=== PATIENT | male | born 1945 | race Caucasian/White ===

== ENCOUNTER 2017-03-19 11:50 | Inpatient (IN) | payer MEDICARE ==
[2017-03-19] MEDS ORDERED: LISINOPRIL 5 MG TAB PO SCH (13:30)
--- NOTE | 2017-03-19 13:44 | XR ---
EXAMINATION TYPE: XR chest 2V DATE OF EXAM: 03/19/2017 COMPARISON: Prior chest x-ray 06/20/2016 HISTORY: Defibrillator discharge TECHNIQUE: Frontal and lateral views of the chest are obtained. FINDINGS: There is no focal air space opacity, pleural effusion, or pneumothorax seen. Defibrillator is present in the left pectoral region, lead is stable within the right ventricle. Coronary stent is present, there are coronary artery calcifications. Prominent lung volumes suggests underlying COPD. The cardiac silhouette size is within normal limits. There may be a spinal curvature. The osseous s tructures are intact. IMPRESSION: No acute cardiopulmonary process.
[2017-03-19 13:47] LABS: Basophils # (A) 0.1 k/uL (0-0.2); Basophils % (A) 1 %; CH 30.8; CHCM 34.9; Eosinophils # (A) 0.2 k/uL (0-0.7); Eosinophils % (A) 3 %; HCT 40.2 % (39.0-53.0); HDW 2.99; Luc # (Auto) 0.08; Luc % (Auto) 1; Lymphocytes # (A) 1.2 k/uL (1.0-4.8); Lymphocytes % (A) 19 %; MCH 31.1 pg (25.0-35.0); MCHC 34.9 g/dL (31.0-37.0); MCV 89.1 fL (80.0-100.0); Mean Platelet Volume 7.3; Monocytes # (A) 0.3 k/uL (0-1.0); Monocytes % (A) 5 %; Neutrophils # (A) 4.4 k/uL (1.3-7.7); Neutrophils % (A) 71 %; RBC 4.51 m/uL (4.30-5.90); RDW 14.9 % (11.5-15.5); WBC 6.1 k/uL (3.8-10.6); WBC (Perox) 6.24
[2017-03-19 13:55] LABS: Calcium 9.7 mg/dL (8.4-10.2); Magnesium 1.4 mg/dL (1.6-2.3); Potassium 4.1 mmol/L (3.5-5.1); Total Bilirubin 0.9 mg/dL (0.2-1.3); Total Protein 6.7 g/dL (6.3-8.2)
--- NOTE | 2017-03-19 14:14 | CONS ---
CONSULTATION Mr. Li is a 71-year-old gentleman who is seen for evaluation of cardiac dysrhythmias and more sustained ventricular tachycardia. Patient gives a history that yesterday morning he was sitting in a chair and he passed out and subsequently possibly he might have got a shock. He did not feel good for about half an hour. He was a bit nauseated and shortness of breath. He did not recognize that he did get a shock. Patient's AICD was interrogated and patient had an episode of sustained monomorphic ventricular tachycardia and he received the shock. In view of the episode of ventricular tachycardia, patient is admitted to the hospital for further evaluation. This patient has a known history of ischemic cardiomyopathy, with a prior history of inferolateral myocardial infarction and stent to the RCA. Patient had the last cardiac catheterization done in 2014 and had a stent to the RCA done. Patient's ejection fraction remains in the range of 35%. His last stress test was in June of 2025 which did not show any evidence of ischemia. Ejection fraction was at the rate of 35%. Patient had been doing well since the AICD placement. This is the first time he felt the shock and he remains in functional class 3. Denies any shortness of breath or chest pain with routine activities. PAST MEDICAL HISTORY: Includes a history of a prior myocardial infarction, multiple times stent to the RCA, history of COPD and history of low red cell count due to the enlarged spleen. PATIENT'S MEDICATIONS: Include Aldactone 25 mg daily, Lasix 40 mg daily, Lipitor 40 mg daily, metoprolol succinate 50 mg 1/2 tablet b.i.d., Plavix 75 mg daily, Spiriva, Symbicort, Vasotec 5 mg twice a day, and vitamin D. PHYSICAL EXAMINATION: At present reveals a 71-year-old gentleman who does not appear to be in any acute distress. Patient's blood pressure is 142/70 mmHg. HEENT examination is negative. Neck is supple. There is no increase in jugular venous pressure. Both the carotid pulses are felt. There is no bruit. Chest is symmetrical. Heart, the PMI is not felt. First and second heart sounds are normal. There is no evidence of any murmur. Lungs are clinically clear to auscultation and percussion. Abdomen is soft. Liver and spleen are not enlarged. Bowel sounds are heard. Extremities, peripheral pulses are 2+. Patient's internal evaluation of the AICD reveals evidence of monomorphic ventricular tachycardia. EKG shows evidence of old inferior wall myocardial infarction. Patient's QT interval is 428 ms. FINAL IMPRESSION: This patient has an episode of monomorphic ventricular tachycardia which was terminated by DC shock. This was shocked with 21 joules Patient has a known history of ischemic cardiomyopathy, with prior history of inferior wall myocardial infarction. RECOMMENDATIONS: Patient is admitted to the hospital. We will start the patient on sotalol 80 mg b.i.d., consultation will be obtained with Dr. Farmer. I will decrease the dose of metoprolol to 50 mg daily and we will monitor the patient's QT interval for the next 48 hours. Patient will be subsequently evaluated with a stress test as an outpatient. ANGELIA / KHADIJAHN: [id number] /
[2017-03-19] MEDS: FUROSEMIDE 40 MG TAB PO SCH (15:13)
[2017-03-19] MEDS: METOPROLOL SUCCINATE (ER) 50 MG TAB.ER.24H PO SCH ×2 (15:14→20:02)
[2017-03-19] MEDS: SOTALOL 80 MG TAB PO SCH ×3 (15:16→23:18)
[2017-03-19] MEDS: SPIRONOLACTONE 25 MG TAB PO SCH (15:16)
[2017-03-19] MEDS ORDERED: HYDROcodone/APAP 5-325MG 1 EACH TAB PO PRN (19:14)
[2017-03-19] MEDS ORDERED: NITROGLYCERIN SL TABS 0.4 MG TAB SUBLINGUAL PRN (19:14)
[2017-03-19] MEDS ORDERED: ALBUTEROL NEBULIZED 2.5 MG/3 ML INHALATION PRN (19:14)
[2017-03-19] MEDS ORDERED: FLUTICASONE 50MCG/SPRAY NASAL 16GM EA NOSTRIL PRN (19:14)
[2017-03-19] MEDS ORDERED: IPRATROPIUM-ALBUTEROL 3 ML NEB INHALATION PRN (19:35)
[2017-03-19] MEDS: SYMBICORT 160-4.5 MCG INHALER INHALATION SCH (19:38)
[2017-03-19] MEDS: IPRATROPIUM-ALBUTEROL 3 ML NEB INHALATION SCH (19:38)
[2017-03-19] MEDS: MAGNESIUM SULFATE-D5W PMX 1 GM in DEXTROSE/WATER 1 100ML.BAG IVPB SCH ×3 (19:46→21:43)
[2017-03-19] MEDS: ATORVASTATIN 40 MG TAB PO SCH (20:00)
[2017-03-19] MEDS: LISINOPRIL 10 MG TAB PO SCH (20:01)
[2017-03-19] MEDS: CLOPIDOGREL 75 MG TAB PO SCH (20:01)
[2017-03-19 23:50] LABS: Calcium 10.1 mg/dL (8.4-10.2); Potassium 4.6 mmol/L (3.5-5.1)
[2017-03-20] MEDS: PANTOPRAZOLE 40 MG TABLET PO SCH (06:39)
[2017-03-20] MEDS: SYMBICORT 160-4.5 MCG INHALER INHALATION SCH ×2 (08:00→19:51)
[2017-03-20] MEDS ORDERED: IPRATROPIUM 0.5 MG/2.5 ML NEBU INHALATION SCH (08:00)
[2017-03-20] MEDS: IPRATROPIUM-ALBUTEROL 3 ML NEB INHALATION SCH ×4 (08:01→19:53)
[2017-03-20] MEDS: SPIRONOLACTONE 25 MG TAB PO SCH (08:58)
[2017-03-20] MEDS: LISINOPRIL 10 MG TAB PO SCH ×2 (08:58→20:31)
[2017-03-20] MEDS: METOPROLOL SUCCINATE (ER) 50 MG TAB.ER.24H PO SCH ×2 (08:58→20:31)
[2017-03-20] MEDS: SOTALOL 80 MG TAB PO SCH ×2 (08:58→20:32)
[2017-03-20] MEDS: FUROSEMIDE 40 MG TAB PO SCH (08:58)
[2017-03-20] MEDS: ASPIRIN 81 MG PO SCH (08:58)
--- NOTE | 2017-03-20 13:58 | P.PN ---
Subjective Progress Note Date: 03/20/17 Principal diagnosis: Monomorphic ventricular tachycardia This is a 71-year-old gentleman with history of prior myocardial infarction, multiple stent placements to the RCA, COPD, ischemic cardio myopathy with prior AICD implantation. [facility]. He gave a history that the morning prior he was sitting in a chair and passed out, he was unsure whether or not he had received a shock from his AICD. The AICD was interrogated in the office which revealed that the patient had an episode of sustained monomorphic ventricular tachycardia for which she received an AICD shock. In view of that patient was admitted to the hospital and was initiated on sotalol. We also requested a consultation with Dr. Farmer. Patient was seen and examined this morning, no ectopy noted on the monitor. Blood pressure 102/50 with a heart rate in the 50s. 96% on room air. QTC on initial EKG when patient arrived was 447, subsequent EKG this morning 490. Magnesium on admission was 1.4, it is 2.4 this morning, potassium 4.6. Objective - Vital Signs Vital signs: Vital Signs Temp 96.9 F L 03/20/17 08:00 Pulse 48 L 03/20/17 11:48 Resp 19 03/20/17 04:00 BP 103/51 03/20/17 08:00 Pulse Ox 96 03/20/17 08:00 Intake & Output 03/19/17 03/20/17 03/20/17 18:59 06:59 18:59 Intake Total 220 300 180 Output Total 300 1250 Balance -80 -950 180 Weight 73.3 kg 72.6 kg Intake: Intake, IV Titration 300 Amount Magnesium Sulfate-D5w Pmx 300 1 gm In Dextrose/Water 1 100ml.bag @ 100 mls/hr IVPB Q1H [facility] Rx#: [id number] Oral 220 180 Output: Urine 300 1250 Other: Voiding Method Toilet # Voids 250 - Exam PHYSICAL EXAMINATION: HEENT: Head is atraumatic, normocephalic. Pupils equal, round. Neck is supple. There is no elevated jugular venous pressure. HEART EXAMINATION: Heart S1, S2 normal. No murmur or gallop heard. CHEST EXAMINATION: Lungs are clear to auscultation and precussion. No chest wall tenderness is noted on palpation or with deep breathing. ABDOMEN: Soft, nontender. Bowel sounds are heard. No organomegaly noted. EXTREMITIES: 2+ peripheral pulses with no evidence of peripheral edema and no calf tenderness noted. NEUROLOGIC patient is awake, alert and oriented -3. . - Labs CBC & Chem 7: 03/19/17 13:30 03/19/17 22:59 Labs: Abnormal Lab Results - Last 24 Hours (Table) 03/19/17 03/19/17 03/20/17 Range/Units 13:30 22:59 05:49 Carbon Dioxide 31 H (22-30) mmol/L BUN 24 H 25 H (9-20) mg/dL Creatinine 1.59 H 1.50 H (0.66-1.25) mg/dL Glucose 147 H (74-99) mg/dL Magnesium 1.4 L 2.4 H (1.6-2.3) mg/dL Assessment and Plan Plan: Assessment and plan #1 monomorphic sustained ventricular tachycardia status post AICD discharge currently on sotalol #2 COPD #3 coronary artery disease with multiple stents placed in the RCA #4 GERD #5 hypertension #6 hyperlipidemia #7 acute on chronic renal insufficiency Plan We will continue sotalol 80 mg one tablet by mouth twice a day, continue to monitor QT. Patient will also be seen in consultation by Dr. Farmer. DNP note has been reviewed, I agree with a documented findings and plan of care. Patient was seen and examined.
--- NOTE | 2017-03-20 14:58 | CDI ---
In responding to this query, please exercise your independent professional judgment. The [facility] Coding Staff and Clinical Documentation Specialists appreciate your assistance in clarifying documentation, maintaining compliance with coding guidelines, accurately documenting patients condition and capturing severity of illness. The fact that a question is asked does not imply that any particular answer is desired or expected. Communication forms are a method of clarifying documentation and are not made part of the Legal Health Record. Thank you in advance for your clarification. Last Revision, March 2015 [address] [place] [address] Documentation Clarification Form Date: 03/20/2017 2:47:00 PM From: Supriya Cheney CCS, CCDS Admit Date: 03/19/2017 12:55:00 PM Patient Name: Pj Li Visit Number: [id number] Discharge Date: Dr. Augustus Higuera: 71 yo male, presented with monomorphic ventricular tachycardia & AICD shock. History: [place], Multiple cardiac stents, COPD, Splenomegaly. Clinical Indicators: LAB: BUN 24, Cr 1.59, GFR 43 Treatment: po Lasix, Neb INH, Nitro sl, IV MagSulfate Consult: EP Cardiology In order to capture the severity of condition, please clarify if the condition signifies: Acute renal failure Please specify (if known): Cortical, Medullary, or Tubular Necrosis? Acute kidney injury Acute on chronic renal failure Chronic renal failure, please stage Chronic kidney disease (CKD) and please stage o Stage 1 GFR >90 o Stage 2 GFR 60-89 o Stage 3 GFR 30-59 o Stage 4 GFR 15-29 o Stage 5 GFR <15 o ESRD Unable to determine Other, specify Please document in your progress notes and discharge summary in order to capture severity of illness and risk of mortality. Include clinical findings that support your diagnosis. FYI: Press F11 to launch patient chart. BEYT
--- NOTE | 2017-03-20 18:28 | PN ---
PROGRESS NOTE CHIEF COMPLAINT: Re-evaluation. HISTORY OF PRESENT ILLNESS: This is a 71-year-old gentleman who was admitted to the hospital yesterday. The patient was seen yesterday for initial evaluation. The patient is seen again today. He is doing relatively well. The patient was admitted with syncope. His AICD had shown ventricular tachycardia. The patient feels fine and has not had any further firing of his AICD. Telemetry of rhythm is stable. REVIEW OF SYSTEMS: NEURO: Denies any headaches, dizziness. PSYCH: No anxiety. CARDIAC: No chest pain, palpitation. RESPIRATORY: No shortness of breath. He has some chronic cough. GI: No nausea, vomiting, abdominal pain, diarrhea. : No symptoms of dysuria, hematuria, urgency, frequency. EXTREMITIES: No pain, edema. CONSTITUTIONAL: No fever, chills. PHYSICAL EXAMINATION: Pleasant gentleman in no distress. Vital signs revealed temperature 96.9, pulse 61, respirations 19, blood pressure 103/51. HEENT: Normocephalic. NECK: No JVD. CHEST: Clear to auscultation with generalized decreased air flow. No wheezing or rhonchi appreciated. CARDIAC: Distant heart sounds S1, S2 with no gallops. Systolic murmur 2/6, left sternal border. ABDOMEN: Soft. Bowel sounds present. EXTREMITIES: No edema. Good pulses in both upper and lower extremities. Neurologically awake, alert, oriented with well-coordinated movements. LABORATORY ASSESSMENT: Electrolytes of sodium 140, potassium 4.6, chloride 100, CO2 content 31. BUN 25, creatinine 1.5. Magnesium 2.4. Calcium is 10.1. ASSESSMENT: 1. Cardiac syncope. 2. Sustained ventricular tachycardia. 3. Fired AICD. 4. ischemic cardiomyopathy. 5. Hypertension. 6. Hypomagnesemia, resolved. 7. Chronic kidney disease, stage III. PLAN: Will continue present medical regimen. Patient's condition discussed with the patient. The patient is scheduled to be seen by EP physician. If patient remains stable, he might be discharged home tomorrow. Prognosis guarded. MMODL / IJN: [id number] /
--- NOTE | 2017-03-20 18:55 | HP ---
HISTORY AND PHYSICAL CHIEF COMPLAINT: Passing-out episode. HISTORY OF PRESENT ILLNESS: This is a 71-year-old gentleman who was admitted directly to the hospital by the business information manager. The day prior to admission, the patient in the morning following breakfast while sitting in the chair fell asleep. He says he suddenly woke up startled. His was sitting around and asked him if he just was startled or was there something wrong, and he said he guessed he was startled as he woke up. The patient had felt somewhat nauseous and dizzy. He did go to the bathroom, thinking he was going to get sick to his stomach but did not. He did basically rest in the morning, and by noon he was feeling much better. He did have lunch without any problems. The patient on the day of admission was called by Cardiology because they received notification that his AICD had fired. The patient was brought into their office and his AICD device was interrogated. The patient was noted to have been in ventricular tachycardia, sustained. In view of this, he was admitted to the hospital. The patient has been started on sotalol. The patient was admitted to my service, as I am the primary care physician. The patient does have a history of dilated ischemic cardiomyopathy and has had AICD since April 2015. The patient has had a previous episode of syncope of similar nature. Also back in 1996 and 2005 he had myocardial infarctions. He had a stent placed back in 2005 and again in April. As mentioned above, he does have dilated ischemic cardiomyopathy. His ejection fraction is about 35%. He does have a long-standing history of hypertension, COPD, and 100% disability from the [facility]. The patient has a history of degenerative arthritis. Otherwise no history of any liver disease, kidney disease, thyroid condition, ulcers, TB, hepatitis. No history of any rheumatic fever. Does have history of myocardial infarction. No history of CVA. PAST SURGICAL HISTORY: 1. Hydrocele repair x2. 2. Previous cataract surgery. 3. AICD placement. PERSONAL HISTORY: Patient is an ex-smoker; quit in 1996. He used to smoke a pack and a half a day for over 25 years. Alcohol none. VACCINATIONS: He did get an annual flu vaccine recently. Also he had a previous Pneumovax in 2004 and 2009. He has also had Prevnar 13. ALLERGIES: PENICILLIN, AMOXICILLIN, which caused him a rash. MEDICATIONS: Medications include: 1. Aspirin 81 mg daily. 2. Lipitor 40 mg daily. 3. Symbicort 160/4.5 two puffs b.i.d. 4. Folic acid 1 mg daily. 5. Lasix 40 mg daily. 6. Aldactone 25 mg daily. 7. Metoprolol XL 50 mg b.i.d. 8. Prilosec 20 mg daily. 9. Plavix 75 mg daily. 10.Fish oil daily. 11.Lisinopril 10 mg b.i.d. 12.He also uses updrafts and an albuterol inhaler. SOCIAL HISTORY: Patient is a retired driver. He does exercise by walking 1-1/2 mile daily. FAMILY MEDICAL HISTORY: Father at the age of 70 with myocardial infarction. Mother at the age of 60 with carcinoma of the breast. The patient has a sister, 67, with history of carcinoma of the colon, doing okay. He has a sister, 64, doing doing okay. A sister, 58, doing okay. He has 2 sons, one 40 and one 37, both in adequate health. He has a daughter, 42, in good health. REVIEW OF SYSTEMS: NEURO: Denies any headaches. An episode of dizziness. No double vision or blurred vision. Syncopal episode. PSYCH: No anxiety, depression. CARDIAC: No chest pain, angina, palpitation. RESPIRATORY: shortness of breath and a chronic cough. No hemoptysis. GI: No nausea, vomiting, abdominal pain, heartburn, diarrhea, constipation, hematochezia, melena. : No symptoms of dysuria, hematuria, urgency, frequency. EXTREMITIES: Denies pain, edema. CONSTITUTIONAL: No fever, chills. HEMATOLOGICAL: No anemia or bleeding disorder. He did have a previous episode of anemia of unknown etiology, and it resolved. He also had mild splenomegaly at that time. SKIN: No rashes. MUSCULOSKELETAL: Arthritic symptoms are tolerable. ENT: Adequate smell test, hearing. EYES: Adequate vision. PHYSICAL EXAMINATION: Pleasant gentleman in no distress at present. Lying comfortably in bed without any symptoms except for mild shortness of breath due to COPD. Vital signs revealed the patient to be afebrile with pulse 77, respirations 18, blood pressure 114/60. HEENT: Normocephalic. NECK: Supple. No JVD. No carotid bruits. No thyromegaly. Pupils are reactive. Oral cavity is moist. CHEST: Increased AP diameter. Generalized decreased air flow. No rhonchi or wheezing appreciated. CARDIAC: Distant heart sounds S1, S2 with no gallops. Systolic murmur 2/6, left sternal border. ABDOMEN: Soft. No palpable masses. Bowel sounds normal. No organomegaly. No abdominal bruits. Extremities reveal no edema. Good pulses in upper extremities. Mild decreased pedal pulses. NEUROLOGIC: Awake, alert, oriented x3 with well-coordinated movements. LABORATORY ASSESSMENT: CBC was normal. BUN 24, creatinine 1.59. Magnesium was 1.4. Chest x-ray revealed no acute cardiopulmonary process. ASSESSMENT: 1. Sustained ventricular tachycardia. 2. Cardiac syncope. 3. Dilated ischemic cardiomyopathy. 4. Fired AICD. 5. Chronic obstructive pulmonary disease. 6. History of hypertension. 7. Chronic kidney disease, stage III. PLAN: The patient is stable. Continue present medical regimen. The patient has been started on sotalol. His magnesium was low at 1.4. He will be given magnesium infusion. The patient's condition was discussed with the patient. Prognosis guarded. Patient is scheduled to see the business information manager and the EP physician. Meanwhile we will continue medications as outlined. Prognosis remains guarded. ANGELIA / KHADIJAHN: [id number] /
[2017-03-20] MEDS: ATORVASTATIN 40 MG TAB PO SCH (20:31)
[2017-03-20] MEDS: CLOPIDOGREL 75 MG TAB PO SCH (20:31)
[2017-03-21 00:54] VITALS: RESP 16
[2017-03-21] MEDS: PANTOPRAZOLE 40 MG TABLET PO SCH (06:51)
[2017-03-21] MEDS: ASPIRIN 81 MG PO SCH ×2 (08:06→08:07)
[2017-03-21] MEDS: SYMBICORT 160-4.5 MCG INHALER INHALATION SCH (08:54)
[2017-03-21] MEDS: IPRATROPIUM-ALBUTEROL 3 ML NEB INHALATION SCH ×3 (08:54→15:39)
[2017-03-21] MEDS ORDERED: METOPROLOL TARTRATE 25 MG TAB PO SCH (09:00)
[2017-03-21 10:59] VITALS: TEMP 97
--- NOTE | 2017-03-21 11:22 | P.PN ---
Subjective Progress Note Date: 03/21/17 Principal diagnosis: Monomorphic ventricular tachycardia This is a 71-year-old gentleman with history of prior myocardial infarction, multiple stent placements to the RCA, COPD, ischemic cardio myopathy with prior AICD implantation. [facility] was [facility] yesterday. He gave a history that the morning prior he was sitting in a chair and passed out, he was unsure whether or not he had received a shock from his AICD. The AICD was interrogated in the office which revealed that the patient had an episode of sustained monomorphic ventricular tachycardia for which she received an AICD shock. In view of that patient was admitted to the hospital and was initiated on sotalol. We also requested a consultation with Dr. Farmer. Patient was seen and examined this morning, no ectopy noted on the monitor. Blood pressure 102/50 with a heart rate in the 50s. 96% on room air. QTC on initial EKG when patient arrived was 447, subsequent EKG this morning 490. Magnesium on admission was 1.4, it is 2.4 this morning, potassium 4.6. 03/21/2017 Patient seen and examined this morning, feeling well overall. No arrhythmias noted on the monitor. He is noted to be mildly hypotensive and bradycardic this morning. Home dose of beta kim decreased to 25 mg by mouth twice a day. Objective - Vital Signs Vital signs: Vital Signs Temp 97 F L 03/21/17 08:00 Pulse 60 03/21/17 09:03 Resp 16 03/21/17 08:00 BP 82/46 03/21/17 08:00 Pulse Ox 97 03/21/17 08:00 Intake & Output 03/20/17 03/21/17 03/21/17 18:59 06:59 18:59 Intake Total 636 310 Output Total 300 300 Balance 336 10 Weight 72.3 kg Intake: IV 10 0.9 10 Oral 636 300 Output: Urine 300 300 Other: Voiding Method Toilet Toilet Urinal Urinal # Voids 250 - Exam PHYSICAL EXAMINATION: HEENT: Head is atraumatic, normocephalic. Pupils equal, round. Neck is supple. There is no elevated jugular venous pressure. HEART EXAMINATION: Heart S1, S2 normal. No murmur or gallop heard. CHEST EXAMINATION: Lungs are clear to auscultation and precussion. No chest wall tenderness is noted on palpation or with deep breathing. ABDOMEN: Soft, nontender. Bowel sounds are heard. No organomegaly noted. EXTREMITIES: 2+ peripheral pulses with no evidence of peripheral edema and no calf tenderness noted. NEUROLOGIC patient is awake, alert and oriented -3. . - Labs CBC & Chem 7: 03/19/17 13:30 03/19/17 22:59 Assessment and Plan Plan: Assessment and plan #1 monomorphic sustained ventricular tachycardia status post AICD discharge currently on sotalol #2 COPD #3 coronary artery disease with multiple stents placed in the RCA #4 GERD #5 hypertension #6 hyperlipidemia #7 chronic kidney disease, stage III Plan We will continue sotalol 80 mg one tablet by mouth twice a day, beta kim has been decreased to 25 mg by mouth twice a day. We will obtain an EKG this morning to assess the QT interval. Patient may be able to be discharged home from cardiology's perspective. We'll make him a follow-up appointment to see Dr. Farmer in the office in 2 weeks, he will also then subsequently follow-up with Dr. VC Padilla. DNP note has been reviewed, I agree with a documented findings and plan of care. Patient was seen and examined.
[2017-03-21] MEDS: SPIRONOLACTONE 25 MG TAB PO SCH (11:51)
[2017-03-21] MEDS: SOTALOL 80 MG TAB PO SCH (11:51)
[2017-03-21 11:53] VITALS: BP 87/44
[2017-03-21 15:50] VITALS: PULSE 54
--- NOTE | 2017-03-21 16:39 | P.CRDCN ---
History of Present Illness Chief complaint: vf arrest History of present illness: Patient referred by Dr. Padilla for evaluation and management of VF arrest at home Patient was sitting and watching television when apparently he passed out and woke up after he received a shock His ICD was interrogated and it showed an episode of ventricular fibrillation that was appropriately internally defibrillated No chest discomfort no dizziness lightheadedness no shortness of breath prior to that Past history of coronary artery disease ischemic cardio myopathy, old inferior lateral myocardial infarction, coronary stenting to the RCA, another stent to the RCA after that. Left ventricle ejection fraction chronically reduced at 35% . Status post ICD implant History of low red cell count with an enlarged spleen COPD Medications include Aldactone, Lasix, atorvastatin, metoprolol succinate, Plavix , Spiriva, Symbicort, Vasotec and vitamin D On examination blood pressure 97/58 mmHg, pulse rate in the 50s, afebrile No JVD no thyromegaly Heart sounds S1 and S2 are normal no murmurs or gallops Abdomen soft nontender Breath sounds are clear without any rhonchi or crackles No lower extremity edema Femoral pulses are well palpable Twelve-lead ECG shows sinus bradycardia with flattened T waves ICD was interrogated and shows an episode of ventricular fibrillation that was appropriately treated Impression VF arrest Appropriate ICD shock Coronary artery disease status post cardiac stenting to the RCA Ischemic cardio myopathy Status post ICD implantation about 1-1/2 years back CHF class II Suggest Consider coronary angiography Consider scar based VT / VF ablation Continue sotalol 80 mg twice daily for now. Reduce lisinopril to 10 mg once daily at noontime continue spironolactone statins antiplatelet agents Past Medical History Past Medical History: Heart Failure, COPD, GERD/Reflux, Hyperlipidemia, Hypertension, Myocardial Infarction ([place]) Additional Past Medical History / Comment(s): Autoimmune disorder with splenomegaly/hemolytic anemia, coronary artery disease with previous myocardial infarction involving the inferior wall in 1996 and the patient is status post coronary stenting in 1996 and 2004 and 2015. History of ventricular tachycardia on 02/23/2016 and the patient underwent EP studies with ablation and subsequent AICD implantation, congestion heart failure with a systolic dysfunction and moderately impaired LV of 30-35% ejection fraction Last Myocardial Infarction Date:: 2015 History of Any Multi-Drug Resistant Organisms: None Reported Past Surgical History: Heart Catheterization, Heart Catheterization With Stent Additional Past Surgical History / Comment(s): PT STATED HE HAS A TOTAL OF 7 STENTS, AICD placement for ventricular tachycardia, colonoscopy with benign polypectomy, sinus sx, bilateral cataract removal with lens implants, L hydrocele surgery, sinus surgery. Past Anesthesia/Blood Transfusion Reactions: No Reported Reaction Date of Last Stent Placement:: 02-25-15 Smoking Status: Former smoker - Past Family History Father Family Medical History: Myocardial Infarction ([place]) Additional Family Medical History / Comment(s): FATHER HAD MIs. He had one of his MIs at the age of 68yrs. Mother Family Medical History: Cancer Additional Family Medical History / Comment(s): MOTHER HAD COLON CANCER. Medications and Allergies Home Medications Medication Instructions Recorded Confirmed Type Budesonide-Formot 160-4.5 Mcg 2 puff INHALATION RT-BID 02/22/15 03/19/17 History [Symbicort 160-4.5 Mcg Inhaler] Cholecalciferol [Vitamin D3] 1,000 unit PO DAILY 02/22/15 03/19/17 History Fish Oil/Dha/Epa [Fish Oil 1,200 1 cap PO AC-SUPPER 02/22/15 03/19/17 History mg Fish Oil] Folic Acid 1 mg PO DAILY 02/22/15 03/19/17 History Omeprazole [PriLOSEC] 20 mg PO AC-BRKFST 02/22/15 03/19/17 History Tiotropium [place] [Spiriva] 1 cap INHALATION RT-DAILY 02/22/15 03/19/17 History Nitroglycerin Sl Tabs [Nitrostat] 0.4 mg SUBLINGUAL Q5M PRN #25 tab 02/25/15 Rx Atorvastatin [Lipitor] 40 mg PO HS 03/04/15 03/19/17 History Clopidogrel [Plavix] 75 mg PO HS 04/20/15 03/19/17 History Aspirin EC [Ecotrin Low Dose] 81 mg PO DAILY 12/16/15 03/19/17 History Furosemide [Lasix] 40 mg PO DAILY 12/16/15 03/19/17 History Spironolactone [Aldactone] 25 mg PO DAILY 12/16/15 03/19/17 History Fluticasone Nasal [place] [Flonase 2 sprays EA NOSTRIL DAILY PRN 01/26/16 History Nasal [place]] Hydrocodone/Acetaminophen [[place] 1 tab PO Q6HR PRN 06/20/16 03/19/17 History 5-325] Lisinopril [Zestril] 10 mg PO BID #60 tab 06/22/16 03/19/17 Rx Albuterol Sulfate [Proventil Hfa] 2 puff INHALATION RT-Q6H PRN 03/19/17 History Multivitamins, Thera [Multivitamin 1 tab PO DAILY 03/19/17 03/19/17 History (formulary)] Albuterol Nebulized [Ventolin 2.5 mg INHALATION Q6H #120 nebu 03/21/17 Rx Nebulized] Metoprolol Succinate (ER) [Toprol 25 mg PO BID #60 tab 03/21/17 Rx XL] Sotalol [Betapace] 80 mg PO BID #20 tab 03/21/17 Rx Allergies Allergy/AdvReac Type Severity Reaction Status Date / Time amoxicillin Allergy Rash/Hives Verified 03/19/17 13:12 Penicillins Allergy Rash/Hives Verified 03/19/17 13:12 Physical Exam Vitals: Vital Signs Temp Pulse Pulse Resp BP Pulse Ox 03/21/17 15:49 54 L 03/21/17 15:40 56 L 03/21/17 14:45 16 03/21/17 12:07 60 03/21/17 11:57 60 03/21/17 11:52 48 L 16 87/44 97 03/21/17 11:29 16 03/21/17 09:03 60 03/21/17 08:54 60 03/21/17 08:00 97 F L 48 L 16 82/46 97 03/21/17 04:00 97.2 F L 56 L 16 84/46 96 03/21/17 00:00 97.0 F L 45 L 16 97/44 96 03/20/17 20:03 58 L 03/20/17 20:00 96.8 F L 58 L 16 114/57 97 03/20/17 19:53 59 L Intake and Output 03/21/17 03/21/17 03/21/17 06:59 14:59 22:59 Intake Total 10 Output Total 300 Balance -290 Intake: IV 10 0.9 10 Output: Urine 300 Other: Voiding Method Toilet Toilet Urinal Urinal Weight 72.3 kg Results 03/19/17 13:30 03/19/17 22:59 Current Medications Generic Name Dose Route Start Last Admin Trade Name Freq PRN Reason Stop Dose Admin Hydrocodone Bitart/Acetaminophen 1 each 03/19/17 19:14 03/20/17 20:35 [place] 5-325 PO 1 each Q6HR PRN Administration Moderate Pain Albuterol/Ipratropium 3 ml 03/19/17 20:00 03/21/17 15:39 [place]one[place] 0.5 Mg-3 Mg/3 Ml Soln INHALATION 3 ml RT-QID LYNDA Administration Albuterol/Ipratropium 3 ml 03/19/17 19:35 Duoneb 0.5 Mg-3 Mg/3 Ml Soln INHALATION RT-Q2H PRN Shortness Of Breath Or Wheezing Aspirin 81 mg 03/20/17 09:00 03/21/17 08:07 Aspirin PO 81 mg DAILY LYNDA Administration Atorvastatin Calcium 40 mg 03/19/17 21:00 03/20/17 20:31 Lipitor PO 40 mg HS LYNDA Administration Budesonide/Formoterol Fumarate 2 puff 03/19/17 20:00 03/21/17 08:54 Symbicort 160-4.5 Mcg Inhaler INHALATION 2 puff RT-BID LYNDA Administration Clopidogrel Bisulfate 75 mg 03/19/17 21:00 03/20/17 20:31 Plavix PO 75 mg HS [facility] Administration Fluticasone Propionate 2 spray 03/19/17 19:14 Flonase Nasal [place] EA NOSTRIL DAILY PRN Allergy Symptoms Furosemide 40 mg 03/19/17 13:30 03/20/17 08:58 Lasix PO 40 mg DAILY LYNDA Administration Lisinopril 10 mg 03/19/17 21:00 03/20/17 20:31 Zestril PO 10 mg BID LYNDA Administration Metoprolol Tartrate 25 mg 03/21/17 09:00 03/21/17 11:50 Lopressor PO 25 mg BID LYNDA Administration Nitroglycerin 0.4 mg 03/19/17 19:14 Nitrostat SUBLINGUAL Q5M PRN Chest Pain Pantoprazole Sodium 40 mg 03/20/17 07:30 03/21/17 06:51 Protonix PO 40 mg AC-BRKFST LYNDA Administration Sotalol HCl 80 mg 03/19/17 13:30 03/21/17 11:51 Betapace PO 80 mg BID LYNDA Administration Spironolactone 25 mg 03/19/17 13:30 03/21/17 11:51 Aldactone PO 25 mg DAILY LYNDA Administration Intake and Output 03/21/17 03/21/17 03/21/17 06:59 14:59 22:59 Intake Total 10 Output Total 300 Balance -290 Intake: IV 10 0.9 10 Output: Urine 300 Other: Voiding Method Toilet Toilet Urinal Urinal Weight 72.3 kg 03/19/17 13:30 03/19/17 22:59
--- NOTE | 2017-04-20 12:07 | P.DS ---
Providers Date of admission: 03/19/17 12:55 Attending physician: Juancho Vazquez Consults: 03/19/17 13:18 Consult Physician Stat Consulting Provider: Viet Farmer Consult Reason/Comments: vtach Do you want consulting provider notified?: Yes Primary care physician: Juancho Vazquez Hospital Course: Hospital course: This 71-year-old gentleman was admitted to the hospital with a cardiac syncope. Here an AICD which required. The patient admitted to the cardiology office who had initial diagnosis labeled as monomorphic ventricular sustained tachycardia, aborted by internal AICD firing. The patient has a known history of dilated ischemic cardiomyopathy and COPD. The patient basically asymptomatic at the time of admission to the hospital. He was observed electrolytes were stable no evidence of any marked injury. Patient was seen by cardiology and also EP physician. The patient's physician in his note dictation patient had been atrial fibrillation terminated by the AICD shock as noted per his interpretation of the AICD device interrogation. 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 Patient's continued on metoprolol and sotalol was added to that. Final diagnosis to include 1. Cardiac syncope 2. Medically fibrillations/monomorphic ventricular sustained tachycardia 3. Known ischemic cardiomyopathy dilated EF 35% 4. Coronary artery disease stable 5. COPD. Plan - Discharge Summary Discharge Rx Participant: No New Discharge Prescriptions: New Metoprolol Succinate (ER) [Toprol XL] 25 mg PO BID #60 tab Albuterol Nebulized [Ventolin Nebulized] 2.5 mg INHALATION Q6H #120 nebu Sotalol [Betapace] 80 mg PO BID #20 tab Continue Omeprazole [PriLOSEC] 20 mg PO AC-BRKFST Folic Acid 1 mg PO DAILY Cholecalciferol [Vitamin D3] 1,000 unit PO DAILY Budesonide-Formot 160-4.5 Mcg [Symbicort 160-4.5 Mcg Inhaler] 2 puff INHALATION RT-BID Tiotropium [place] [Spiriva] 1 cap INHALATION RT-DAILY Fish Oil/Dha/Epa [Fish Oil 1,200 mg Fish Oil] 1 cap PO AC-SUPPER Nitroglycerin Sl Tabs [Nitrostat] 0.4 mg SUBLINGUAL Q5M PRN #25 tab PRN Reason: Chest Pain Atorvastatin [Lipitor] 40 mg PO HS Clopidogrel [Plavix] 75 mg PO HS Furosemide [Lasix] 40 mg PO DAILY Aspirin EC [Ecotrin Low Dose] 81 mg PO DAILY Spironolactone [Aldactone] 25 mg PO DAILY Fluticasone Nasal [place] [Flonase Nasal [place]] 2 sprays EA NOSTRIL DAILY PRN PRN Reason: Allergy Symptoms Hydrocodone/Acetaminophen [[place] 5-325] 1 tab PO Q6HR PRN PRN Reason: Pain Lisinopril [Zestril] 10 mg PO BID #60 tab Multivitamins, Thera [Multivitamin (formulary)] 1 tab PO DAILY Albuterol Sulfate [Proventil Hfa] 2 puff INHALATION RT-Q6H PRN PRN Reason: Shortness Of Breath Discontinued Metoprolol Succinate [Toprol XL] 50 mg PO BID Discharge Medication List Budesonide-Formot 160-4.5 Mcg [Symbicort 160-4.5 Mcg Inhaler] 2 puff INHALATION RT-BID 02/22/15 [History] Cholecalciferol [Vitamin D3] 1,000 unit PO DAILY 02/22/15 [History] Fish Oil/Dha/Epa [Fish Oil 1,200 mg Fish Oil] 1 cap PO AC-SUPPER 02/22/15 [ History] Folic Acid 1 mg PO DAILY 02/22/15 [History] Omeprazole [PriLOSEC] 20 mg PO AC-BRKFST 02/22/15 [History] Tiotropium [place] [Spiriva] 1 cap INHALATION RT-DAILY 02/22/15 [History] Nitroglycerin Sl Tabs [Nitrostat] 0.4 mg SUBLINGUAL Q5M PRN #25 tab 02/25/15 [Rx ] Atorvastatin [Lipitor] 40 mg PO HS 03/04/15 [History] Clopidogrel [Plavix] 75 mg PO HS 04/20/15 [History] Aspirin EC [Ecotrin Low Dose] 81 mg PO DAILY 12/16/15 [History] Furosemide [Lasix] 40 mg PO DAILY 12/16/15 [History] Spironolactone [Aldactone] 25 mg PO DAILY 12/16/15 [History] Fluticasone Nasal [place] [Flonase Nasal [place]] 2 sprays EA NOSTRIL DAILY PRN 01/02 [History] Hydrocodone/Acetaminophen [[place] 5-325] 1 tab PO Q6HR PRN 06/20/16 [History] Lisinopril [Zestril] 10 mg PO BID #60 tab 06/22/16 [Rx] Albuterol Sulfate [Proventil Hfa] 2 puff INHALATION RT-Q6H PRN 03/19/17 [History ] Multivitamins, Thera [Multivitamin (formulary)] 1 tab PO DAILY 03/19/17 [History ] Albuterol Nebulized [Ventolin Nebulized] 2.5 mg INHALATION Q6H #120 nebu [Rx] Metoprolol Succinate (ER) [Toprol XL] 25 mg PO BID #60 tab 03/21/17 [Rx] Sotalol [Betapace] 80 mg PO BID #20 tab 03/21/17 [Rx] Follow up Appointment(s)/Referral(s): Juancho Vazquez MD [Primary Care Provider] - 03/25/17 11:15 am (SATURDAY) Duke Padilla MD [STAFF PHYSICIAN] - 1 Week (DEVICE CHECK ON THE WAS CANCELLED SPOKE TO .NET ARCHITECT. OFFICE WILL CALL WITH APPOINTMENT TIME) Patient Instructions/Handouts: Implantable Cardioverter Defibrillator (DC) Discharge Disposition: HOME SELF-CARE
== END 2017-03-21 17:40 | disposition home or self-care (01) | DRG 309 ==
LOC: 6SEL 12:55
PROVIDERS: ADMIT Internal Medicine; ATTEND Internal Medicine
DX: I49.01 Ventricular fibrillation (principal); I13.0 Hypertensive heart and chronic kidney disease with heart failure and stage 1 through stage 4 chronic kidney disease, or unspecified chronic kidney disease; I50.22 Chronic systolic (congestive) heart failure; I95.9 Hypotension, unspecified; I42.0 Dilated cardiomyopathy; E83.42 Hypomagnesemia; J44.9 Chronic obstructive pulmonary disease, unspecified; N18.3 Chronic kidney disease, stage 3 (moderate); I47.2 Ventricular tachycardia; I25.5 Ischemic cardiomyopathy; I25.10 Atherosclerotic heart disease of native coronary artery without angina pectoris; E78.5 Hyperlipidemia, unspecified; I25.2 Old myocardial infarction; K21.9 Gastro-esophageal reflux disease without esophagitis; M19.90 Unspecified osteoarthritis, unspecified site; R01.1 Cardiac murmur, unspecified; Z79.02 Long term (current) use of antithrombotics/antiplatelets; Z79.51 Long term (current) use of inhaled steroids; Z79.82 Long term (current) use of aspirin; Z79.899 Other long term (current) drug therapy; Z87.891 Personal history of nicotine dependence; Z95.5 Presence of coronary angioplasty implant and graft; Z95.810 Presence of automatic (implantable) cardiac defibrillator; Z88.0 Allergy status to penicillin; Z82.49 Family history of ischemic heart disease and other diseases of the circulatory system
CPT/HCPCS: 71020; 80048; 80053; 83735; 85025; 94640

== ENCOUNTER 2018-02-02 12:41 | Emergency (ER) | payer MEDICARE ==
[2018-02-02 12:46] VITALS: RESP 18
[2018-02-02] MEDS ORDERED: LIDOCAINE 1% INJ 10MG/ML (20 ML MDV) SQ STA (13:01)
--- NOTE | 2018-02-02 13:03 | ED ---
General Adult HPI - General Chief complaint: Wound/Laceration Stated complaint: Left Arm Lac Time Seen by Provider: 02/02/18 12:55 Source: patient, RN notes reviewed Mode of arrival: ambulatory Limitations: no limitations - History of Present Illness Initial comments: Patient 72-year-old male presented to the emergency room today with a chief complaint of laceration to the left forearm. He does not that he was in his house he was walking through a door when he accidentally hit the side of the door jam causing this laceration. He states his tetanus is up-to-date. Doesn' t that his blood thinner Plavix. Patient denies any other injury or complaint. Patient denies any recent fever, chills, shortness of breath, chest pain, back pain, abdominal pain, nausea or vomiting, headaches or visual changes, or any other complaints. - Related Data Home Medications Medication Instructions Recorded Confirmed Budesonide-Formot 160-4.5 Mcg 2 puff INHALATION RT-BID 02/22/15 02/02/18 [Symbicort 160-4.5 Mcg Inhaler] Cholecalciferol [Vitamin D3] 1,000 unit PO DAILY 02/22/15 02/02/18 Fish Oil/Dha/Epa [Fish Oil 1,200 1 cap PO AC-SUPPER 02/22/15 02/02/18 mg Fish Oil] Folic Acid 1 mg PO DAILY 02/22/15 02/02/18 Omeprazole [PriLOSEC] 20 mg PO AC-BRKFST 02/22/15 02/02/18 Tiotropium [place] [Spiriva] 1 cap INHALATION RT-DAILY 02/22/15 02/02/18 Atorvastatin [Lipitor] 40 mg PO HS 03/04/15 02/02/18 Clopidogrel [Plavix] 75 mg PO DAILY 04/20/15 02/02/18 Spironolactone [Aldactone] 25 mg PO DAILY 12/16/15 02/02/18 Hydrocodone/Acetaminophen [[place] 1 tab PO Q6HR PRN 06/20/16 02/02/18 5-325] Albuterol Sulfate [Proventil Hfa] 2 puff INHALATION RT-Q6H PRN 03/19/17 02/02/18 Albuterol Nebulized [Ventolin 2.5 mg INHALATION RT-BID 05/02/17 02/02/18 Nebulized] Metoprolol Succinate (ER) [Toprol 25 mg PO DAILY 05/02/17 02/02/18 XL] Previous Rx's Medication Instructions Recorded Nitroglycerin Sl Tabs [Nitrostat] 0.4 mg SUBLINGUAL Q5M PRN #25 tab 02/25/15 Sotalol [Betapace] 80 mg PO BID #20 tab 03/21/17 Apixaban [Eliquis] 5 mg PO BID #60 tab 05/06/17 Cephalexin [Keflex] 500 mg PO Q12HR 7 Days cap 02/02/18 Allergies Allergy/AdvReac Type Severity Reaction Status Date / Time amoxicillin Allergy Rash/Hives Verified 02/02/18 12:59 Penicillins Allergy Rash/Hives Verified 02/02/18 12:59 Review of Systems ROS Statement: Those systems with pertinent positive or pertinent negative responses have been documented in the HPI. ROS Other: All systems not noted in ROS Statement are negative. Past Medical History Past Medical History: Heart Failure, COPD, GERD/Reflux, Hyperlipidemia, Hypertension, Myocardial Infarction ([place]) Additional Past Medical History / Comment(s): Autoimmune disorder with splenomegaly/hemolytic anemia, coronary artery disease with previous myocardial infarction involving the inferior wall in 1996 and the patient is status post coronary stenting in 1996 and 2004 and 2015. History of ventricular tachycardia on 02/23/2016 and the patient underwent EP studies with ablation and subsequent AICD implantation, congestion heart failure with a systolic dysfunction and moderately impaired LV of 30-35% ejection fraction Last Myocardial Infarction Date:: 2015 History of Any Multi-Drug Resistant Organisms: None Reported Past Surgical History: Heart Catheterization, Heart Catheterization With Stent Additional Past Surgical History / Comment(s): PT STATED HE HAS A TOTAL OF 7 STENTS, AICD placement for ventricular tachycardia, colonoscopy with benign polypectomy, sinus sx, bilateral cataract removal with lens implants, L hydrocele surgery, sinus surgery. Past Anesthesia/Blood Transfusion Reactions: No Reported Reaction Date of Last Stent Placement:: 02-25-15 Past Psychological History: No Psychological Hx Reported Smoking Status: Former smoker - Past Family History Father Family Medical History: Myocardial Infarction ([place]) Additional Family Medical History / Comment(s): FATHER HAD MIs. Mother Family Medical History: Cancer Additional Family Medical History / Comment(s): COLON CANCER. General Exam - General Exam Comments Initial Comments: General: The patient is awake and alert, in no distress, and does not appear acutely ill. Eye: Extra-ocular movements are intact. No nystagmus. There is normal conjunctiva bilaterally. No signs of icterus. Ears, nose, mouth and throat: There are moist mucous membranes and no oral lesions. Neck: The neck is supple, there is no tenderness or JVD. Musculoskeletal: Normal ROM, no tenderness. Sensation intact. Strength 5/5. Pulses equal bilaterally 2+. Neurological: A&O x 3. CN II-XII intact, There are no obvious motor or sensory deficits. Coordination appears grossly intact. Speech is normal. Skin: Patient does have a laceration to the left forearm. Mild venous oozing. Psychiatric: Cooperative, appropriate mood & affect, normal judgment. Limitations: no limitations Course Vital Signs 02/02/18 12:42 Temperature 98.2 F Pulse Rate 63 Respiratory 18 Rate Blood Pressure 149/56 O2 Sat by Pulse 97 Oximetry Procedures - Procedures Initial comment: 3 cm linear laceration to the left forearm. The skin was anesthetized with 1% lidocaine. The laceration was then cleansed with Betadine and irrigated with normal saline. The wound was inspected, and there was no evidence of injury to deep structures. No foreign body was noted in the wound. A total of 9 skin sutures were placed utilizing 4-0 nylon. Disposition Clinical Impression: Laceration Disposition: HOME SELF-CARE Condition: Good Instructions: Laceration (ED) Additional Instructions: Please return to the emergency room in 8-10 days to have sutures removed. Please watch for any signs of infection which may include increased pain, swelling, redness, fever or chills. Please return to emergency room for any signs of infection do occur. Please use clean soap and water over the area to prevent scabbing over your stitches. Please leave wound covered for the first 24-48 hours and then leave wound open to air. Please return to the emergency room for any other concerns. Prescriptions: Cephalexin [Keflex] 500 mg PO Q12HR 7 Days cap Is patient prescribed a controlled substance at d/c from ED?: No Referrals: Juancho Vazquez MD [Primary Care Provider] - 1-2 days Time of Disposition: 13:45
[2018-02-02 14:04] VITALS: BP 126/59; PULSE 59; TEMP 98.1
== END 2018-02-02 14:03 | disposition home or self-care (01) ==
LOC: EC 12:41
DX: S51.812A Laceration without foreign body of left forearm, initial encounter (principal); E78.5 Hyperlipidemia, unspecified; I11.0 Hypertensive heart disease with heart failure; I50.9 Heart failure, unspecified; K21.9 Gastro-esophageal reflux disease without esophagitis; J44.9 Chronic obstructive pulmonary disease, unspecified; I25.10 Atherosclerotic heart disease of native coronary artery without angina pectoris; I25.2 Old myocardial infarction; Z87.891 Personal history of nicotine dependence; Z88.0 Allergy status to penicillin; Z79.02 Long term (current) use of antithrombotics/antiplatelets; Z79.51 Long term (current) use of inhaled steroids; Z79.899 Other long term (current) drug therapy; Z95.5 Presence of coronary angioplasty implant and graft; W22.8XXA Striking against or struck by other objects, initial encounter; Y93.01 Activity, walking, marching and hiking; Y92.009 Unspecified place in unspecified non-institutional (private) residence as the place of occurrence of the external cause
CPT/HCPCS: 99282; 12002; J2001

== ENCOUNTER 2018-08-12 09:58 | Day surgery (SDC) | payer OTHER, BC ==
[2018-08-07 12:20] VITALS: BMI 23.4
[~2018-08-12 09:58] MED LIST: LACTATED RINGERS 1,000 ML IV SCH
[2018-08-12] MEDS ORDERED: LIDOCAINE 1% 20 ML VIAL (10MG/ML) FOR IV START INTRADERMA ONE (10:19)
[2018-08-12 10:35] VITALS: RESP 16; TEMP 96.9
[2018-08-12] MEDS ORDERED: PROPOFOL 10 MG/ML 20 ML VIAL IV ONE (11:56)
--- NOTE | 2018-08-12 12:35 | P.PCN ---
Date of Procedure: 08/12/18 Procedure(s) Performed: Procedure: Total colonoscopy and polypectomy. Preoperative diagnosis: Screening for neoplasia. Postoperative diagnosis: 1. Sigmoid diverticulosis with no evidence of acute diverticulitis or strictures. 2. Small polyp around the splenic flexure snared but no large polyps or cancer. Preparation: HalfLytely prep. Sedation: Was provided by anesthesia. Brief clinical history: The patient is a 72-year-old male who is scheduled for this evaluation for screening for neoplasia age being his risk factor as well as history of polyps. His last exam was around 5 years ago. No family history of colon cancer. He has no abdominal complaints, bleeding or anemia. Procedure: With the patient on his left lateral decubitus position and after informed consent and adequate sedation, the perianal area was inspected and it did not show any fissures or fistulas. There were no masses felt on digital rectal examination. The Olympus CFH 190L video colonoscope was then inserted in the rectum in the usual fashion and advanced to the cecum. There was multiple diverticular orifices seen scattered in the sigmoid but no evidence of acute diverticulitis or strictures. A small polyp was seen around the splenic flexure which was snared and retrieved by suction but there were no large polyps or cancer. I retroflexed the endoscope in the rectum before the endoscope was withdrawn. The patient tolerated the procedure well. Plan: The patient was reassured. He will follow up with you as planned and I recommended repeat exam in 5 years.
[2018-08-12 12:53] VITALS: BP 107/56; PULSE 58
== END 2018-08-12 12:59 | disposition home or self-care (01) ==
LOC: ORWHC2ENDO 09:58
DX: Z12.11 Encounter for screening for malignant neoplasm of colon (principal); D12.3 Benign neoplasm of transverse colon; K57.30 Diverticulosis of large intestine without perforation or abscess without bleeding; Z86.010 Personal history of colon polyps; K21.9 Gastro-esophageal reflux disease without esophagitis; I25.10 Atherosclerotic heart disease of native coronary artery without angina pectoris; I11.0 Hypertensive heart disease with heart failure; I50.9 Heart failure, unspecified; J44.9 Chronic obstructive pulmonary disease, unspecified; M19.90 Unspecified osteoarthritis, unspecified site; I49.9 Cardiac arrhythmia, unspecified; Z95.5 Presence of coronary angioplasty implant and graft; Z95.810 Presence of automatic (implantable) cardiac defibrillator; Z85.828 Personal history of other malignant neoplasm of skin; Z79.02 Long term (current) use of antithrombotics/antiplatelets; Z79.82 Long term (current) use of aspirin; Z79.891 Long term (current) use of opiate analgesic; Z79.51 Long term (current) use of inhaled steroids; Z79.899 Other long term (current) drug therapy; Z88.0 Allergy status to penicillin
CPT/HCPCS: 88305; 45385; J2704

== ENCOUNTER 2019-02-02 09:51 | Day surgery (SDC) | payer BC, OTHER ==
[2019-01-29 15:31] VITALS: BMI 23.0
[2019-02-02] MEDS ORDERED: LACTATED RINGERS 1,000 ML IV SCH (10:04)
[2019-02-02] MEDS ORDERED: LIDOCAINE 1% 20 ML VIAL (10MG/ML) FOR IV START INTRADERMA PRN (10:04)
[2019-02-02 10:16] VITALS: RESP 16; TEMP 97.2
[2019-02-02] MEDS ORDERED: PROPOFOL 10 MG/ML 20 ML VIAL IV ONE (11:25)
--- NOTE | 2019-02-02 12:02 | P.PCN ---
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 He reports last EGD was approximately 5 years ago. Denies any symptoms of dysphagia. Currently on omeprazole daily. He reports very occasional breakthrough symptoms of reflux based on diet. PROCEDURE PERFORMED: Esophagogastroduodenoscopy with biopsy. PREOPERATIVE DIAGNOSIS: EGD with biopsy. ESTIMATED BLOOD LOSS: Minimal. IV sedation per anesthesia. PROCEDURE: After informed consent was obtained, the patient was brought into the endoscopy unit. IV sedation was administered by Anesthesia under continuous monitoring. Initially the Olympus GIF-190 video endoscope was inserted into the mouth. Esophagus intubated without any difficulty. It was gradually advanced into the stomach and duodenum and carefully examined. The bulb and the second part of the duodenum appeared normal, with biopsies taken. The scope at this time was withdrawn to the stomach, adequately insufflated with air, and upon careful examination, mucosa of the antrum, body, cardia and the fundus appeared grossly normal except for some mild scattered erythema in the antrum and body suggestive of mild gastritis with biopsies taken. The scope was then withdrawn into the esophagus. The GE junction was located at 41 cm from the incisors. The esophagus appeared normal, except for a small 1 cm segment of Christensen's esophagus in the distal esophagus noted with no nodule seen, which was aggressively biopsied. There were no erosions or ulcerations seen and the patient tolerated the procedure well. IMPRESSION: 1. 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 2. Mild gastritis antrum body, biopsied. 3. Duodenal biopsies. RECOMMENDATIONS: The findings of this examination were discussed with the patient and his . Okay to resume diet. Continue omeprazole daily. Await pathology from biopsies. Anticipate repeat EGD in 3 years.
[2019-02-02 12:14] VITALS: BP 114/66; PULSE 40
== END 2019-02-02 13:01 | disposition home or self-care (01) ==
LOC: ORWHC2ENDO 09:51
PROVIDERS: ATTEND Internal Medicine
DX: K22.70 Barrett's esophagus without dysplasia (principal); K29.50 Unspecified chronic gastritis without bleeding; K21.0 Gastro-esophageal reflux disease with esophagitis; Z87.891 Personal history of nicotine dependence; Z88.1 Allergy status to other antibiotic agents; Z88.0 Allergy status to penicillin; I25.2 Old myocardial infarction; I25.10 Atherosclerotic heart disease of native coronary artery without angina pectoris; Z95.810 Presence of automatic (implantable) cardiac defibrillator; E78.5 Hyperlipidemia, unspecified; I10 Essential (primary) hypertension; M19.90 Unspecified osteoarthritis, unspecified site; Z79.899 Other long term (current) drug therapy; Z95.5 Presence of coronary angioplasty implant and graft
CPT/HCPCS: 88305; 43239; J2704

== ENCOUNTER 2019-12-22 10:57 | Inpatient (IN) | payer OTHER, MEDICARE ==
[2019-12-22 11:15] LABS: Glucose,Whole Blood 130 mg/dL (75-99)
[2019-12-22] MEDS ORDERED: SODIUM CHLORIDE 0.9% 500 ML 500 ML IV STA (11:23)
--- NOTE | 2019-12-22 11:28 | ED ---
General Adult HPI - General Chief complaint: Neuro Symptoms/Deficit Stated complaint: Poss stroke Time Seen by Provider: 12/22/19 11:00 Source: patient, RN notes reviewed, old records reviewed Mode of arrival: ambulatory Limitations: no limitations - History of Present Illness Initial comments: This is a 73-year-old male who presents emergency department stating that he has feeling disoriented since yesterday and he woke up today having his disorienta tion didn't feel any better so he decided come in to be evaluated. Patient states he just doesn't feel as though is sharp is used to be. Patient denies any speech disturbance. Patient denies any numbness or weakness. Patient states he had a headache earlier but is gone now. Patient also states since Saturday he has been having issues seeing out of his right eye. Patient believes that the peripheral vision is worse than it has been in the right lateral aspect of his visual field. Patient denies any recent fever chills. Patient denies any trauma. Patient states for hematemesis I Dr. Galarza he had cataract surgery and saw him for a small high procedure a week and a half ago. Patient denies any chest pain palpitations difficulty breathing. Patient denies any abdominal pain. - Related Data Home Medications Medication Instructions Recorded Confirmed Budesonide-Formot 160-4.5 Mcg 2 puff INHALATION RT-BID 02/22/15 12/22/19 [Symbicort 160-4.5 Mcg Inhaler] Cholecalciferol [Vitamin D3 (25 2,000 unit PO DAILY 02/22/15 12/22/19 Mcg = 1000 Iu)] Folic Acid 1 mg PO DAILY 02/22/15 12/22/19 Omeprazole [PriLOSEC] 20 mg PO AC-BRKFST 02/22/15 12/22/19 Tiotropium [place] [Spiriva] 1 cap INHALATION RT-DAILY 02/22/15 12/22/19 Hydrocodone/Acetaminophen [[place] 1 tab PO BID PRN 06/20/16 12/22/19 5-325] Albuterol Sulfate [Proventil Hfa] 2 puff INHALATION RT-Q6H PRN 03/19/17 12/22/19 Albuterol Nebulized [Ventolin 2.5 mg INHALATION RT-BID 05/02/17 12/22/19 Nebulized] Metoprolol Succinate (ER) [Toprol 100 mg PO DAILY 05/02/17 12/22/19 XL] Aspirin 81 mg PO DAILY 08/07/18 12/22/19 Sacubitril/Valsartan [Entresto 24 1 tab PO BID 08/07/18 12/22/19 mg-26 mg Tablet] Atorvastatin [Lipitor] 80 mg PO DAILY 12/22/19 12/22/19 Clopidogrel [Plavix] 75 mg PO DAILY 12/22/19 12/22/19 Spironolactone [Aldactone] 25 mg PO DAILY 12/22/19 12/22/19 Previous Rx's Medication Instructions Recorded Nitroglycerin Sl Tabs [Nitrostat] 0.4 mg SUBLINGUAL Q5M PRN #25 tab 02/25/15 Sotalol [Betapace] 80 mg PO BID #20 tab 03/21/17 Allergies Allergy/AdvReac Type Severity Reaction Status Date / Time amoxicillin Allergy Rash/Hives Verified 12/22/19 12:15 Penicillins Allergy Rash/Hives Verified 12/22/19 12:15 Review of Systems ROS Statement: Those systems with pertinent positive or pertinent negative responses have been documented in the HPI. ROS Other: All systems not noted in ROS Statement are negative. Past Medical History Past Medical History: Coronary Artery Disease (CAD), Cancer, Heart Failure, COPD, GERD/Reflux, Hyperlipidemia, Hypertension, Myocardial Infarction ([place]), Osteoarthritis (OA) Additional Past Medical History / Comment(s): Autoimmune disorder with hx. splenomegaly/hemolytic anemia-stable currently, History of ventricular tachycardia, 30-35% ejection fraction, SKIN CANCER, Christensen's esophagus Last Myocardial Infarction Date:: 2015 History of Any Multi-Drug Resistant Organisms: None Reported Past Surgical History: AICD, Heart Catheterization, Heart Catheterization With Stent Additional Past Surgical History / Comment(s): PT STATED HE HAS A TOTAL OF 7 STENTS, colonoscopy, sinus sx, bilateral cataract removal with lens implants, L hydrocele surgery Past Anesthesia/Blood Transfusion Reactions: No Reported Reaction Date of Last Stent Placement:: 2015 Type of Cardiac Device: AICD Device Placement Date:: 2014 [employer] Past Psychological History: No Psychological Hx Reported Smoking Status: Former smoker Past Alcohol Use History: Rare Past Drug Use History: None Reported - Past Family History Father Family Medical History: Myocardial Infarction ([place]) Additional Family Medical History / Comment(s): FATHER HAD MIs. Mother Family Medical History: Cancer Additional Family Medical History / Comment(s): COLON CANCER. General Exam - General Exam Comments Initial Comments: GENERAL: Patient is well-developed and well-nourished. Patient is nontoxic and well- hydrated and is in mild distress. ENT: Neck is soft and supple. No significant lymphadenopathy is noted. Oropharynx is clear. Moist mucous membranes. Neck has full range of motion without eliciting any pain. EYES: The sclera were anicteric and conjunctiva were pink and moist. Extraocular movements were intact and pupils were equal round and reactive to light. Eyelids were unremarkable. PULMONARY: Unlabored respirations. Good breath sounds bilaterally. No audible rales rhonchi or wheezing was noted. CARDIOVASCULAR: There is a regular rate and rhythm without any murmurs gallops or rubs. ABDOMEN: Soft and nontender with normal bowel sounds. SKIN: Skin is clear with no lesions or rashes and otherwise unremarkable. NEUROLOGIC: Patient is alert and oriented x3. Cranial nerves II through XII are grossly intact. Patient's visual field is diminished in the right lateral field of vision. Motor and sensory are also intact. Normal speech, volume and content. Symmetrical smile. MUSCULOSKELETAL: Normal extremities with adequate strength and full range of motion. LYMPHATICS: No significant lymphadenopathy is noted PSYCHIATRIC: Normal psychiatric evaluation. Limitations: no limitations Course Vital Signs 12/22/19 12/22/19 12/22/19 11:00 12:15 12:30 Temperature 98.7 F Pulse Rate 53 L 54 L 53 L Respiratory 20 29 H 14 Rate Blood Pressure 122/52 112/49 120/53 O2 Sat by Pulse 98 96 97 Oximetry Medical Decision Making - Medical Decision Making EKG shows sinus bradycardia 52 bpm PA interval 256 QRS of 106 QT interval 554 QTC is 496. Patient's EKG shows no ST segment elevation or depression. CT shows a right occipital acute stroke. I spoke with Dr. Rodriguez and he agreed to admit the patient - Lab Data Result diagrams: 12/22/19 11:25 12/22/19 11:25 Lab Results 12/22/19 12/22/19 12/22/19 Range/Units 11:14 11:25 11:25 WBC 10.3 (3.8-10.6) k/uL RBC 5.22 (4.30-5.90) m/uL Hgb 16.2 (13.0-17.5) gm/dL Hct 47.7 (39.0-53.0) % MCV 91.4 (80.0-100.0) fL MCH 31.1 (25.0-35.0) pg MCHC 34.0 (31.0-37.0) g/dL RDW 13.3 (11.5-15.5) % Plt Count 205 (150-450) k/uL Neutrophils % 71 % Lymphocytes % 20 % Monocytes % 6 % Eosinophils % 1 % Basophils % 1 % Neutrophils # 7.3 (1.3-7.7) k/uL Lymphocytes # 2.0 (1.0-4.8) k/uL Monocytes # 0.6 (0-1.0) k/uL Eosinophils # 0.1 (0-0.7) k/uL Basophils # 0.1 (0-0.2) k/uL PT 10.5 (9.0-12.0) sec INR 1.0 (<1.2) APTT 23.1 (22.0-30.0) sec Sodium (137-145) mmol/L Potassium (3.5-5.1) mmol/L Chloride (98-107) mmol/L Carbon Dioxide (22-30) mmol/L Anion Gap mmol/L BUN (9-20) mg/dL Creatinine (0.66-1.25) mg/dL Est GFR (CKD-EPI)AfAm (>60 ml/min/1.73 sqM) Est GFR (CKD-EPI)NonAf (>60 ml/min/1.73 sqM) Glucose (74-99) mg/dL POC Glucose (mg/dL) 130 H (75-99) mg/dL POC Glu Boarding Specialist ID Massimo Negron Calcium (8.4-10.2) mg/dL Total Bilirubin (0.2-1.3) mg/dL AST (17-59) U/L ALT (4-49) U/L Alkaline Phosphatase (38-126) U/L Troponin I (0.000-0.034) ng/mL Total Protein (6.3-8.2) g/dL Albumin (3.5-5.0) g/dL 12/22/19 12/22/19 Range/Units 11:25 11:25 WBC (3.8-10.6) k/uL RBC (4.30-5.90) m/uL Hgb (13.0-17.5) gm/dL Hct (39.0-53.0) % MCV (80.0-100.0) fL MCH (25.0-35.0) pg MCHC (31.0-37.0) g/dL RDW (11.5-15.5) % Plt Count (150-450) k/uL Neutrophils % % Lymphocytes % % Monocytes % % Eosinophils % % Basophils % % Neutrophils # (1.3-7.7) k/uL Lymphocytes # (1.0-4.8) k/uL Monocytes # (0-1.0) k/uL Eosinophils # (0-0.7) k/uL Basophils # (0-0.2) k/uL PT (9.0-12.0) sec INR (<1.2) APTT (22.0-30.0) sec Sodium 136 L (137-145) mmol/L Potassium 4.5 (3.5-5.1) mmol/L Chloride 100 (98-107) mmol/L Carbon Dioxide 26 (22-30) mmol/L Anion Gap 10 mmol/L BUN 24 H (9-20) mg/dL Creatinine 1.30 H (0.66-1.25) mg/dL Est GFR (CKD-EPI)AfAm 63 (>60 ml/min/1.73 sqM) Est GFR (CKD-EPI)NonAf 55 (>60 ml/min/1.73 sqM) Glucose 122 H (74-99) mg/dL POC Glucose (mg/dL) (75-99) mg/dL POC Glu Boarding Specialist ID Calcium 10.2 (8.4-10.2) mg/dL Total Bilirubin 1.6 H (0.2-1.3) mg/dL AST 27 (17-59) U/L ALT 18 (4-49) U/L Alkaline Phosphatase 65 (38-126) U/L Troponin I <0.012 (0.000-0.034) ng/mL Total Protein 6.8 (6.3-8.2) g/dL Albumin 4.5 (3.5-5.0) g/dL Critical Care Time Critical Care Time: Yes Total Critical Care Time: 35 Disposition Clinical Impression: Cerebrovascular accident (CVA) Disposition: ADMITTED IP TO THIS HOSP Referrals: Juancho Vazquez MD [Primary Care Provider] - 1-2 days
[2019-12-22 11:47] LABS: Albumin 4.5 g/dL (3.5-5.0); Calcium 10.2 mg/dL (8.4-10.2); Potassium 4.5 mmol/L (3.5-5.1); Total Bilirubin 1.6 mg/dL (0.2-1.3); Total Protein 6.8 g/dL (6.3-8.2)
[2019-12-22 11:59] LABS: Basophils # (A) 0.1 k/uL (0-0.2); Basophils % (A) 1 %; Eosinophils # (A) 0.1 k/uL (0-0.7); Eosinophils % (A) 1 %; HCT 47.7 % (39.0-53.0); HGB 16.2 gm/dL (13.0-17.5); Lymphocytes % (A) 20 %; MCH 31.1 pg (25.0-35.0); MCV 91.4 fL (80.0-100.0); Mean Platelet Volume 6.8; Monocytes # (A) 0.6 k/uL (0-1.0); Monocytes % (A) 6 %; Neutrophils # (A) 7.3 k/uL (1.3-7.7); Neutrophils % (A) 71 %; Platelet Count 205 k/uL (150-450); RBC 5.22 m/uL (4.30-5.90); RDW 13.3 % (11.5-15.5); WBC 10.3 k/uL (3.8-10.6)
[2019-12-22 12:02] LABS: Partial Thromboplastin Time 23.1 sec (22.0-30.0); Prothrombin Time 10.5 sec (9.0-12.0)
--- NOTE | 2019-12-22 12:13 | XR ---
EXAMINATION TYPE: XR chest 2V DATE OF EXAM: 12/22/2019 COMPARISON: 03/19/2017 INDICATION: Altered mental status TECHNIQUE: Frontal and lateral views of the chest are obtained. FINDINGS: The heart size is normal. The pulmonary vasculature is normal. The lungs are clear. Pacemaker overlies left chest. IMPRESSION: 1. No acute pulmonary process.
--- NOTE | 2019-12-22 12:13 | CT ---
EXAMINATION TYPE: CT brain wo con for TPA DATE OF EXAM: 12/22/2019 COMPARISON: None HISTORY: Visual disturbance and disorientation. CT DLP: 1166.[address] of the brain was performed. The ventricles, basal cisterns and sulci overlying the cerebral convexities demonstrate mild enlargem ent. There is acute insult noted involving the left occipital lobe compatible with acute CVA. No evid ence for hemorrhagic transformation. No additional areas of abnormal attenuation noted. There is no evidence for intracranial hemorrhage. There is decreased attenuation about the periventricular white matter and deep white matter of both c erebral hemispheres, compatible with chronic small vessel ischemia. Differential diagnosis does inclu de demyelination. No midline shift. Osseous calvarium is intact. If symptoms persist consider MRI. IMPRESSION: 1. Acute CVA left occipital lobe without evidence for hemorrhagic transformation.
[2019-12-22] MEDS ORDERED: ASPIRIN 325 MG TAB PO STA (13:33)
[2019-12-22] MEDS ORDERED: ACETAMINOPHEN TAB 325 MG TAB PO PRN (14:22)
[2019-12-22] MEDS ORDERED: ONDANSETRON 4 MG/2 ML VIAL IVP PRN (14:22)
[2019-12-22] MEDS ORDERED: HYDROcodone/APAP 10-325MG 1 EACH TAB PO PRN (15:36)
[2019-12-22] MEDS ORDERED: ALBUTEROL NEBULIZED 2.5 MG/3 ML INHALATION PRN (15:36)
--- NOTE | 2019-12-22 15:39 | P.HPIM ---
History of Present Illness H&P Date: 12/22/19 Chief Complaint: Not feeling well This is a 73-year-old male with complex past medical history noted below who presented to the emergency room feeling disoriented and having vision problem in his right eye. Patient was his baseline state of health until Saturday night when he noted that he was little bit disoriented. Patient went to sleep and woke up Saturday and told me that he was having difficulty with his speech. He also told me that he was having difficulty with his vision in the right eye where he can't see the lateral part of his right visual field. He did not have any visual complaints in the ER. Patient denies any numbness or weakness. He complained of mild headache yesterday that was more constant today. He denies any headache at this time. No fever or chills. No other complaints. Patient was evaluated in the ER and was found to have an acute stroke involving the left occipital lobe. He is admitted to the hospital for further management. Patient denies any history of prior stroke. He reports taking aspirin at home daily. Review of Systems Review of system: 14 points review of systems were obtained and were negative except to what were mentioned in the HPI. Past Medical History Past Medical History: Coronary Artery Disease (CAD), Cancer, Heart Failure, COPD, GERD/Reflux, Hyperlipidemia, Hypertension, Myocardial Infarction ([place]), Osteoarthritis (OA) Additional Past Medical History / Comment(s): Autoimmune disorder with hx. splenomegaly/hemolytic anemia-stable currently, History of ventricular tachycardia, 30-35% ejection fraction, SKIN CANCER, Christensen's esophagus Last Myocardial Infarction Date:: 2015 History of Any Multi-Drug Resistant Organisms: None Reported Past Surgical History: AICD, Heart Catheterization, Heart Catheterization With Stent Additional Past Surgical History / Comment(s): PT STATED HE HAS A TOTAL OF 7 STENTS, colonoscopy, sinus sx, bilateral cataract removal with lens implants, L hydrocele surgery Past Anesthesia/Blood Transfusion Reactions: No Reported Reaction Date of Last Stent Placement:: 2015 Type of Cardiac Device: AICD Device Placement Date:: 2014 [email or web address] Past Psychological History: No Psychological Hx Reported Smoking Status: Former smoker Past Alcohol Use History: Rare Past Drug Use History: None Reported - Past Family History Father Family Medical History: Myocardial Infarction ([place]) Additional Family Medical History / Comment(s): FATHER HAD MIs. Mother Family Medical History: Cancer Additional Family Medical History / Comment(s): COLON CANCER. Medications and Allergies Home Medications Medication Instructions Recorded Confirmed Type Budesonide-Formot 160-4.5 Mcg 2 puff INHALATION RT-BID 02/22/15 12/22/19 History [Symbicort 160-4.5 Mcg Inhaler] Cholecalciferol [Vitamin D3 (25 2,000 unit PO DAILY 02/22/15 12/22/19 History Mcg = 1000 Iu)] Folic Acid 1 mg PO DAILY 02/22/15 12/22/19 History Omeprazole [PriLOSEC] 20 mg PO AC-BRKFST 02/22/15 12/22/19 History Tiotropium [place] [Spiriva] 2 cap INHALATION RT-DAILY 02/22/15 12/22/19 History Nitroglycerin Sl Tabs [Nitrostat] 0.4 mg SUBLINGUAL Q5M PRN #25 tab 02/25/15 12/22/19 Rx Albuterol Sulfate [Proventil Hfa] 2 puff INHALATION RT-Q6H PRN 03/19/17 12/22/19 History Sotalol [Betapace] 80 mg PO BID #20 tab 03/21/17 12/22/19 Rx Albuterol Nebulized [Ventolin 2.5 mg INHALATION RT-BID 05/02/17 12/22/19 History Nebulized] Aspirin 81 mg PO DAILY 08/07/18 12/22/19 History Sacubitril/Valsartan [Entresto 24 1 tab PO BID 08/07/18 12/22/19 History mg-26 mg Tablet] Albuterol Nebulized [Ventolin 2.5 mg INHALATION RT-QID PRN 12/22/19 12/22/19 History Nebulized] Atorvastatin [Lipitor] 40 mg PO DAILY 12/22/19 History Clopidogrel [Plavix] 75 mg PO DAILY 12/22/19 History HYDROcodone/APAP 10-325MG [[place] 1 tab PO QID PRN 12/22/19 12/22/19 History 10-325] Lidocaine 5% Patch [Lidoderm] 1 patch TOPICAL DAILY PRN 12/22/19 12/22/19 History Metoprolol Succinate [Toprol XL] 25 mg PO HS 12/22/19 History Spironolactone [Aldactone] 25 mg PO DAILY 12/22/19 12/22/19 History Allergies Allergy/AdvReac Type Severity Reaction Status Date / Time amoxicillin Allergy Rash/Hives Verified 12/22/19 12:15 Penicillins Allergy Rash/Hives Verified 12/22/19 12:15 Physical Exam Vitals: Vital Signs Temp Pulse Resp BP Pulse Ox 12/22/19 14:00 52 L 10 L 120/75 12/22/19 13:30 51 L 10 L 115/50 12/22/19 13:00 56 L 24 122/63 96 12/22/19 12:30 53 L 14 120/53 97 12/22/19 12:15 54 L 29 H 112/49 96 12/22/19 11:00 98.7 F 53 L 20 122/52 98 Intake and Output 12/22/19 12/22/19 12/22/19 06:59 14:59 22:59 Other: Weight 72.575 kg General: The patient is awake and alert, in no distress Eye: there is normal conjunctiva bilaterally. Neck: The neck is supple, there is no JVD. Cardiovascular: Normal S1-S2, no S3-S4, no murmurs. Respiratory: Lungs clear to auscultation bilaterally Gastrointestinal: Abdomen is soft, nontender Musculoskeletal: There is no pedal edema. Neurological:. Speech is normal. Skin: Skin is warm and dry Results CBC & Chem 7: 12/22/19 11:25 12/22/19 11:25 Labs: Abnormal Lab Results - Last 24 Hours (Table) 12/22/19 12/22/19 Range/Units 11:14 11:25 Sodium 136 L (137-145) mmol/L BUN 24 H (9-20) mg/dL Creatinine 1.30 H (0.66-1.25) mg/dL Glucose 122 H (74-99) mg/dL POC Glucose (mg/dL) 130 H (75-99) mg/dL Total Bilirubin 1.6 H (0.2-1.3) mg/dL Assessment and Plan Assessment: 1. Acute stroke involving left occipital lobe: Noted on computed tomography scan. continue full dose Aspirin. Unable to get MRI of the brain as patient has an AICD. Consult neurology for further evaluation. Echocardiogram and carotid Doppler. Continue telemetry monitoring. PT/OT/speech pathology evaluation. 2. Ischemic cardiomyopathy with chronic systolic heart failure, not in exacerbation. Status post AICD. Cardiology consult with for device interrogation 3. Coronary artery disease with history of stent placement 4. Underlying COPD with no exacerbation: Continue bronchodilators as per home regimen 5. History of nonsustained V. tach status post ablation in 2017 Patient informed me that he is only taking aspirin at home. He stopped taking Plavix a while ago. Awaiting neurology and cardiology evaluation.
--- NOTE | 2019-12-22 16:07 | US ---
EXAMINATION TYPE: US carotid duplex BILAT DATE OF EXAM: 12/22/2019 COMPARISON: NONE CLINICAL HISTORY: stroke. TIA EXAM MEASUREMENTS: RIGHT: Peak Systolic Velocity (PSV) cm/sec ----- Right CCA: 84.2 ----- Right ICA: 104.6 ----- Right ECA: 97.3 ICA/CCA ratio: 1.2 RIGHT: End Diastole cm/sec ----- Right CCA: 18.8 ----- Right ICA: 0 ----- Right ECA: 4.2 LEFT: Peak Systolic Velocity (PSV) cm/sec ----- Left CCA: 90.0 ----- Left ICA: 91.4 ----- Left ECA: 66.7 ICA/CCA ratio: 1.0 LEFT: End Diastole cm/sec ----- Left CCA: 26.0 ----- Left ICA: 28.9 ----- Left ECA: 18.8 VERTEBRALS (direction of flow): Right Vertebral: Antegrade Left Vertebral: Antegrade Rhythm: Normal No significant stenosis seen IMPRESSION: 1. No significant flow-limiting stenosis based on ultrasound velocities. 2. Atheromatous plaquing and intimal thickening is present bilaterally. Criteria for Assigning % of Stenosis / Diameter reduction (Estimation based on the indirect measurements of the internal carotid artery velocities (ICA PSV). 1. Normal (no stenosis)=ICA PSV < 125 cm/s: ratio < 2.0: ICA EDV<40 cm/s. 2. Less than 50% stenosis=ICA PSV < 125 cm/s: ratio < 2.0: ICA EDV<40 cm/s. 3. 50 to 69% stenosis=ICA PSV of 125 to 230 cm/s: ration 2.0 ? 4.0: ICA EDV 40-100 cm/s. 4. Greater than 70% stenosis to near occlusion= ICA PSV > 230 cm/s: ratio > 4.0: ICA EDV > 100 cm/s. 5. Near occlusion= ICA PSV velocities may be low or undetectable: variable ratio and ICA EDV. 6. Total occlusion=unable to detect flow.
[2019-12-22] MEDS: SYMBICORT 160-4.5 MCG INHALER INHALATION SCH (19:27)
[2019-12-22] MEDS: METOPROLOL SUCCINATE (ER) 25 MG TAB.ER.24H PO SCH (20:14)
[2019-12-22] MEDS: SOTALOL 80 MG TAB PO SCH (20:15)
[2019-12-22] MEDS: SACUBITRIL/VALSARTAN 24 MG-26 MG TABLET PO SCH (20:15)
[2019-12-22] MEDS: HEPARIN SODIUM,PORCINE 5,000 UNIT/ML 1 ML VIAL SQ SCH (20:15)
[2019-12-23] MEDS: PANTOPRAZOLE 40 MG TABLET PO SCH (06:09)
[2019-12-23] MEDS: SPIRONOLACTONE 25 MG TAB PO SCH (08:19)
[2019-12-23] MEDS: SOTALOL 80 MG TAB PO SCH ×2 (08:19→20:02)
[2019-12-23] MEDS: ATORVASTATIN 40 MG TAB PO SCH (08:20)
[2019-12-23] MEDS: ASPIRIN 325 MG TAB PO SCH (08:20)
[2019-12-23] MEDS: HEPARIN SODIUM,PORCINE 5,000 UNIT/ML 1 ML VIAL SQ SCH ×2 (08:20→20:02)
[2019-12-23] MEDS: SACUBITRIL/VALSARTAN 24 MG-26 MG TABLET PO SCH ×2 (08:20→20:01)
[2019-12-23] MEDS: SYMBICORT 160-4.5 MCG INHALER INHALATION SCH ×2 (08:38→19:14)
[2019-12-23] MEDS: IPRATROPIUM 0.5 MG/2.5 ML NEBU INHALATION SCH ×4 (08:39→19:14)
--- NOTE | 2019-12-23 10:00 | ECHOF ---
Referral Reason:stroke MEASUREMENTS -------- HEIGHT: 180.3 cm WEIGHT: 72.6 kg BP: 120/75 IVSd: 1.3 cm (0.6 - 1.1) LVIDd: 4.2 cm (3.9 - 5.3) LVPWd: 1.1 cm (0.6 - 1.1) IVSs: 1.7 cm LVIDs: 3.5 cm LVPWs: 2.1 cm MV E Oscar: 0.41 m/s MV DecT: 430 ms MV A Oscar: 0.71 m/s MV E/A Ratio: 0.58 AR PHT: 927 ms FINDINGS -------- Resting bradycardia (HR<60bpm). This was a technically difficult study with suboptimal views. The left ventricular size is normal. There is mild concentric left ventricular hypertrophy. There is moderate global hypokinesis of LV . Overall left ventricular systolic function is mild-moderate ly impaired with, an EF between 40 - 45 %. Mitral Doppler inflow pattern suggests diastolic filling abnormality {E/E'}. The RV was not well visualized. The left atrium was not well visualized. The right atrium was not well visualized. Electronic pacemaker lead seen in the right atrial cavity . 5.0mg of Lumason was utilized for enhancement of images Interatrial and interventricular septum intact. The aortic valve was not well visualized. There is mild aortic regurgitation. There is no evidenc e of aortic stenosis. No mitral regurgitation. Mild tricuspid regurgitation present. There is no evidence of pulmonary hypertension. The right v entricular systolic pressure, as measured by Doppler, is {RVSP}. The pulmonic valve was not well visualized. Aortic root not well visualized. IVC Not well visulized. There is no pericardial effusion. CONCLUSIONS -------- 1. The left ventricular size is normal. 2. There is mild concentric left ventricular hypertrophy. 3. There is moderate global hypokinesis of LV . 4. Overall left ventricular systolic function is mild-moderately impaired with, an EF between 40 - 45 %. 5. Mitral Doppler inflow pattern suggest diastolic filling abnormality {E/E'}. 6. There is mild aortic regurgitation. 7. Mild tricuspid regurgitation present. GLASS BLOWING INSTRUCTOR: Angie Randhawa [facility]
--- NOTE | 2019-12-23 10:22 | P.PN ---
Subjective Progress Note Date: 12/23/19 Principal diagnosis: Occipital CVA Patient has no new complaints today, continues to complain of right hemianopsia. Denies nausea, vomiting, numbness, weakness. Objective - Vital Signs Vital signs: Vital Signs Temp 97.8 F 12/23/19 04:00 Pulse 45 L 12/23/19 04:00 Resp 16 12/23/19 04:00 BP 101/58 12/23/19 04:00 Pulse Ox 95 12/23/19 04:00 Intake & Output 12/22/19 12/23/19 12/23/19 18:59 06:59 18:59 Weight 72.575 kg 69.2 kg Other: Voiding Method Toilet # Voids 0 2 - Exam Gen: awake, alert HEENT: normocephalic, atraumatic, good hearing acuity, moist mucous membranes Resp: CTAB, good air exchange, no accessory muscle use, no wheezes, crackles, rhonchi CVS: good distal perfusion x 4, RRR, no murmurs, clicks, gallops GI: soft, NTTP, ND : no SPT, no CVAT, baig catheter [IS/NOT] present MSK: no pitting edema, no clubbing Neuro: non-focal, no sensory deficits, appropriate tone Psych: cooperative, euthymic mood - Constitutional General appearance: Present: cooperative, no acute distress, thin - EENT Eyes: Present: PERRLA ENT: Present: hearing grossly normal Ears: bilateral: normal - Labs CBC & Chem 7: 12/22/19 11:25 12/22/19 11:25 Labs: Abnormal Lab Results - Last 24 Hours (Table) 12/22/19 12/22/19 12/22/19 Range/Units 11:14 11:25 11:25 Sodium 136 L (137-145) mmol/L BUN 24 H (9-20) mg/dL Creatinine 1.30 H (0.66-1.25) mg/dL Glucose 122 H (74-99) mg/dL POC Glucose (mg/dL) 130 H (75-99) mg/dL Total Bilirubin 1.6 H (0.2-1.3) mg/dL Triglycerides 243 H (<150) mg/dL HDL Cholesterol 26 L (40-60) mg/dL - Imaging and Cardiology CT Scan - head: report reviewed (Left occipital stroke seen on CT of the head) Assessment and Plan Assessment: 1. Acute stroke involving left occipital lobe: Noted on computed tomography scan. continue full dose Aspirin. Unable to get MRI of the brain as patient has an AICD. Consult neurology for further evaluation. Echocardiogram and car otid Doppler. Continue telemetry monitoring. PT/OT/speech pathology evaluation. 2. Ischemic cardiomyopathy with chronic systolic heart failure, not in exacerbation. Status post AICD. Cardiology consult with for device interrogation 3. Coronary artery disease with history of stent placement 4. Underlying COPD with no exacerbation: Continue bronchodilators as per home regimen 5. History of nonsustained V. tach status post ablation in 2017 Patient informed me that he is only taking aspirin at home. He stopped taking Plavix a while ago. Awaiting neurology and cardiology evaluation.
--- NOTE | 2019-12-23 10:26 | P.CRDCN ---
History of Present Illness Consult date: 12/23/19 Chief complaint: Not feeling well History of present illness: This is a very pleasant 73-year-old gentleman who sees Dr. Farmer in the office on regular basis with coronary artery disease and prior stenting of the RCA multiple times, ischemic cardiomyopathy, status post AICD, as well as hypertension and dyslipidemia presented to the hospital because of vision disturbance in the right eye. The patient was in his usual state of health yesterday when he was at home and suddenly he felt that he lost the vision in the right eye. No slurred speech. No numbness or weakness in the upper or lower extremities. No dizziness or lightheadedness or syncope. No symptoms of chest pain or chest discomfort. And no shortness of breath. He presented to the emergency department where he underwent a computed tomography scan of the brain and that revealed infarction in the left occipital lobe. The patient does have coronary artery disease and cardiomyopathy but he never been diagnosed in atrial fibrillation or any cardiac arrhythmia in the past. We are in process of getting an AICD interrogation on him later on today. He is on dual antipl atelet at home with aspirin as well as Plavix and also he is on a statin. The EKG showed sinus bradycardia. There is diffuse nonspecific ST and T wave abnormalities. The computed tomography scan as described above showed left occipital lobe infarction. The rest of his blood work overall came in to be unremarkable. He underwent an echocardiogram during this admission and that revealed impaired LV function was EF between 40-45%. Past Medical History Past Medical History: Coronary Artery Disease (CAD), Cancer, Heart Failure, COPD, GERD/Reflux, Hyperlipidemia, Hypertension, Myocardial Infarction ([place]), Osteoarthritis (OA) Additional Past Medical History / Comment(s): Autoimmune disorder with hx. splenomegaly/hemolytic anemia-stable currently, History of ventricular tachycardia, 30-35% ejection fraction, SKIN CANCER, Christensen's esophagus Last Myocardial Infarction Date:: 2015 History of Any Multi-Drug Resistant Organisms: None Reported Past Surgical History: AICD, Heart Catheterization, Heart Catheterization With Stent Additional Past Surgical History / Comment(s): PT STATED HE HAS A TOTAL OF 7 STENTS, colonoscopy, sinus sx, bilateral cataract removal with lens implants, L hydrocele surgery Past Anesthesia/Blood Transfusion Reactions: No Reported Reaction Date of Last Stent Placement:: 2015 Type of Cardiac Device: AICD Device Placement Date:: 2014 [employer] Past Psychological History: No Psychological Hx Reported Smoking Status: Former smoker Past Alcohol Use History: Rare Past Drug Use History: None Reported - Past Family History Sister(s) Family Medical History: Cancer Additional Family Medical History / Comment(s): Colon CA. Father Family Medical History: Myocardial Infarction ([place]) Additional Family Medical History / Comment(s): FATHER HAD MIs. Mother Family Medical History: Cancer Additional Family Medical History / Comment(s): COLON CANCER. Medications and Allergies Home Medications Medication Instructions Recorded Confirmed Type Budesonide-Formot 160-4.5 Mcg 2 puff INHALATION RT-BID 02/22/15 12/22/19 History [Symbicort 160-4.5 Mcg Inhaler] Cholecalciferol [Vitamin D3 (25 2,000 unit PO DAILY 02/22/15 12/22/19 History Mcg = 1000 Iu)] Folic Acid 1 mg PO DAILY 02/22/15 12/22/19 History Omeprazole [PriLOSEC] 20 mg PO AC-BRKFST 02/22/15 12/22/19 History Tiotropium [place] [Spiriva] 2 cap INHALATION RT-DAILY 02/22/15 12/22/19 History Nitroglycerin Sl Tabs [Nitrostat] 0.4 mg SUBLINGUAL Q5M PRN #25 tab 02/25/15 12/22/19 Rx Albuterol Sulfate [Proventil Hfa] 2 puff INHALATION RT-Q6H PRN 03/19/17 12/22/19 History Sotalol [Betapace] 80 mg PO BID #20 tab 03/21/17 12/22/19 Rx Albuterol Nebulized [Ventolin 2.5 mg INHALATION RT-BID 05/02/17 12/22/19 History Nebulized] Aspirin 81 mg PO DAILY 08/07/18 12/22/19 History Sacubitril/Valsartan [Entresto 24 1 tab PO BID 08/07/18 12/22/19 History mg-26 mg Tablet] Albuterol Nebulized [Ventolin 2.5 mg INHALATION RT-QID PRN 12/22/19 12/22/19 History Nebulized] Atorvastatin [Lipitor] 40 mg PO DAILY 12/22/19 History Clopidogrel [Plavix] 75 mg PO DAILY 12/22/19 History HYDROcodone/APAP 10-325MG [[place] 1 tab PO QID PRN 12/22/19 12/22/19 History 10-325] Lidocaine 5% Patch [Lidoderm] 1 patch TOPICAL DAILY PRN 12/22/19 12/22/19 History Metoprolol Succinate [Toprol XL] 25 mg PO HS 12/22/19 History Spironolactone [Aldactone] 25 mg PO DAILY 12/22/19 12/22/19 History Allergies Allergy/AdvReac Type Severity Reaction Status Date / Time amoxicillin Allergy Rash/Hives Verified 12/22/19 12:15 Penicillins Allergy Rash/Hives Verified 12/22/19 12:15 Physical Exam Vitals: Vital Signs Temp Pulse Pulse Resp BP BP Pulse Ox 12/23/19 08:00 97.5 F L 56 L 20 107/48 96 12/23/19 04:00 97.8 F 45 L 16 101/58 95 12/22/19 23:45 50 L 16 99/54 96 12/22/19 20:00 98.4 F 51 L 18 104/50 96 12/22/19 16:06 51 L 12/22/19 16:00 43 L 12/22/19 14:19 98.0 F 43 L 20 152/66 97 12/22/19 14:00 52 L 10 L 120/75 12/22/19 13:30 51 L 10 L 115/50 12/22/19 13:00 56 L 24 122/63 96 12/22/19 12:30 53 L 14 120/53 97 12/22/19 12:15 54 L 29 H 112/49 96 12/22/19 11:00 98.7 F 53 L 20 122/52 98 Intake and Output 12/22/19 12/23/19 12/23/19 22:59 06:59 14:59 Other: Voiding Method Toilet Toilet # Voids 2 2 Weight 69.2 kg - Constitutional General appearance: no acute distress - Respiratory Respiratory: bilateral: CTA - Cardiovascular Rhythm: regular Heart sounds: normal: S1, S2 Results 12/22/19 11:25 12/22/19 11:25 Cardiac Enzymes 12/22/19 12/22/19 Range/Units 11:25 11:25 AST 27 (17-59) U/L Troponin I <0.012 (0.000-0.034) ng/mL Coagulation 12/22/19 Range/Units 11:25 PT 10.5 (9.0-12.0) sec APTT 23.1 (22.0-30.0) sec Lipids 12/22/19 Range/Units 11:25 Triglycerides 243 H (<150) mg/dL Cholesterol 164 (<200) mg/dL HDL Cholesterol 26 L (40-60) mg/dL CBC 12/22/19 Range/Units 11:25 WBC 10.3 (3.8-10.6) k/uL RBC 5.22 (4.30-5.90) m/uL Hgb 16.2 (13.0-17.5) gm/dL Hct 47.7 (39.0-53.0) % Plt Count 205 (150-450) k/uL Comprehensive Metabolic Panel 12/22/19 Range/Units 11:25 Sodium 136 L (137-145) mmol/L Potassium 4.5 (3.5-5.1) mmol/L Chloride 100 (98-107) mmol/L Carbon Dioxide 26 (22-30) mmol/L BUN 24 H (9-20) mg/dL Creatinine 1.30 H (0.66-1.25) mg/dL Glucose 122 H (74-99) mg/dL Calcium 10.2 (8.4-10.2) mg/dL AST 27 (17-59) U/L ALT 18 (4-49) U/L Alkaline Phosphatase 65 (38-126) U/L Total Protein 6.8 (6.3-8.2) g/dL Albumin 4.5 (3.5-5.0) g/dL Current Medications Generic Name Dose Route Start Last Admin Trade Name Freq PRN Reason Stop Dose Admin Acetaminophen 650 mg 12/22/19 14:22 Tylenol Tab PO Q6HR PRN Fever and/ or Pain Hydrocodone Bitart/Acetaminophen 1 each 12/22/19 15:36 [place] 10 PO QID PRN Pain Albuterol Sulfate 2.5 mg 12/22/19 15:36 Ventolin Nebulized INHALATION RT-QID PRN Shortness Of Breath Aspirin 325 mg 12/23/19 09:00 12/23/19 08:20 Aspirin PO 325 mg DAILY LYNDA Administration Atorvastatin Calcium 40 mg 12/23/19 09:00 12/23/19 08:20 Lipitor PO 40 mg DAILY LYNDA Administration Budesonide/Formoterol Fumarate 2 puff 12/22/19 20:00 12/23/19 08:38 Symbicort 160-4.5 Mcg Inhaler INHALATION Not Given RT-BID LYNDA Heparin Sodium (Porcine) 5,000 unit 12/22/19 21:00 12/23/19 08:20 Heparin SQ 5,000 unit Q12HR LYNDA Administration Ipratropium Moro 0.5 mg 12/23/19 08:00 12/23/19 08:39 Atrovent Nebulized INHALATION Not Given RT-QID LYNDA Metoprolol Succinate 25 mg 12/22/19 21:00 12/22/19 20:14 Toprol Xl PO 25 mg HS LYNDA Administration Ondansetron HCl 4 mg 12/22/19 14:22 Zofran IVP Q6HR PRN Nausea And Vomiting Pantoprazole Sodium 40 mg 12/23/19 07:30 12/23/19 06:09 Protonix PO Not Given AC-BRKFST [facility] Sacubitril/Valsartan 1 each 12/22/19 21:00 12/23/19 08:20 Entresto 24 Mg-26 Mg Tablet PO 1 each BID LYNDA Administration Sotalol HCl 80 mg 12/22/19 21:00 12/23/19 08:19 Betapace PO 80 mg BID LYNDA Administration Spironolactone 25 mg 12/23/19 09:00 12/23/19 08:19 Aldactone PO 25 mg DAILY LYNDA Administration Intake and Output 12/22/19 12/23/19 12/23/19 22:59 06:59 14:59 Other: Voiding Method Toilet Toilet # Voids 2 2 Weight 69.2 kg 12/22/19 11:25 12/22/19 11:25 Assessment and Plan Assessment: Assessment #1 acute cerebral infarction #2 coronary artery disease #3 ischemic cardiomyopathy #4 status post AICD #5 hypertension #6 dyslipidemia Plan #1 rule out cardiac arrhythmia like atrial fibrillation #2 we'll get the AICD interrogated #3 I would advise proceeding on dual antiplatelet therapy. Neurology service is on the case #4 the echo was reviewed and showed impaired LV function was EF around 40% #5 follow-up with the patient Thank you for allowing us participate in his care
[2019-12-23] MEDS ORDERED: ASPIRIN 325 MG TAB PO SCH (12:00)
[2019-12-23 13:02] LABS: Hemoglobin A1C 4.9 % (4.0-6.0)
--- NOTE | 2019-12-23 13:12 | P.CNNES ---
History of Present Illness Consult date: 12/23/19 Requesting physician: Felix Rodriguez Reason for Consult: Acute Stroke: left occipital History of Present Illness: This is a 73-year-old left-handed gentleman with medical history of coronary artery disease s/p stents, hypertension, hyperlipidemia, heart failure and on defibillator that presented to the emergency department on 12/22/2019 feeling disoriented and having visual problems in the right eye. Patient was in his baseline state of health until Saturday night when he noted having a headache over the bilateral frontal area the headache was 5/10. Denies any nausea vomiting photophobia or phonophobia denies any radiation. He went to bed. Next day he continued to have this mild headache so he said he took it easy that day. Then towards the end of the night he felt like he could not see out of the right eye and it was a the temporal side. So he does not know exactly what time but he felt was towards the end of the night so he went to bed. Next day and he continued to have this difficulty not being able to see out of the right eye over the temporal side. He called his primary care doctor and that he was notified to come back to the emergency. He denies any numbness tingling and weakness any difficulty getting his words out as slurring of speech. According to the medical record it's and mentioned that she was having some difficulty with his speech but the patient denies that. At home patient takes aspirin 81 mg, Plavix 75 mg and statin but not sure the name or the dose. He denies missing any his medication. He does not have the any irregular heartbeats or was not told he had history of atrial fibrillation. Workup in the hospital consisted of: CT of the head that was done on 12/22/2019 which showed acute CVA over the left occipital lobe without evidence for hemorrhagic transformation. I personally reviewed that a CT of the head and I felt was not acute was more subacute at le ast left occipital ischemic stroke. Carotid duplex was performed and was documented as no significant flow limiting stenosis based on ultrasound velocities. Shows atheromatous plaquing and intimal thickening is present bilaterally. 2-D echo was reported as left ventricular size is normal. There is mild concentric left ventricular hypertrophy. Moderate global hypokinesis of left ventricle. Ejection fraction of 40-45%. Lipid profile was completed in the triglyceride was 243, cholesterol is 164, LDLs 89, HDL is 26. EKG was documented as sinus bradycardia with marked sinus arrhythmia. Lateral infarct age undetermined. Ventricular rate of 52. On presentation the initial blood pressure was 122/52 with a heart rate of 53 respiratory was 20, temperature was 98.7 Fahrenheit oral, pulse ox is 98 at room air. Review of Systems Review of system: The 12 point system was reviewed and apparent positive and negative per HPI. Past Medical History Past Medical History: Coronary Artery Disease (CAD), Cancer, Heart Failure, COPD, GERD/Reflux, Hyperlipidemia, Hypertension, Myocardial Infarction ([place]), Osteoarthritis (OA) Additional Past Medical History / Comment(s): Autoimmune disorder with hx. splenomegaly/hemolytic anemia-stable currently, History of ventricular tachycardia, 30-35% ejection fraction, SKIN CANCER, Christensen's esophagus Last Myocardial Infarction Date:: 2015 History of Any Multi-Drug Resistant Organisms: None Reported Past Surgical History: AICD, Heart Catheterization, Heart Catheterization With Stent Additional Past Surgical History / Comment(s): PT STATED HE HAS A TOTAL OF 7 STENTS, colonoscopy, sinus sx, bilateral cataract removal with lens implants, L hydrocele surgery Past Anesthesia/Blood Transfusion Reactions: No Reported Reaction Date of Last Stent Placement:: 2015 Type of Cardiac Device: AICD Device Placement Date:: 2014 [employer] Past Psychological History: No Psychological Hx Reported Smoking Status: Former smoker Past Alcohol Use History: Rare Past Drug Use History: None Reported - Past Family History Sister(s) Family Medical History: Cancer Additional Family Medical History / Comment(s): Colon CA. Father Family Medical History: Myocardial Infarction ([place]) Additional Family Medical History / Comment(s): FATHER HAD MIs. Mother Family Medical History: Cancer Additional Family Medical History / Comment(s): COLON CANCER. Medications and Allergies Home Medications Medication Instructions Recorded Confirmed Type Budesonide-Formot 160-4.5 Mcg 2 puff INHALATION RT-BID 02/22/15 12/22/19 History [Symbicort 160-4.5 Mcg Inhaler] Cholecalciferol [Vitamin D3 (25 2,000 unit PO DAILY 02/22/15 12/22/19 History Mcg = 1000 Iu)] Folic Acid 1 mg PO DAILY 02/22/15 12/22/19 History Omeprazole [PriLOSEC] 20 mg PO AC-BRKFST 02/22/15 12/22/19 History Tiotropium [place] [Spiriva] 2 cap INHALATION RT-DAILY 02/22/15 12/22/19 History Nitroglycerin Sl Tabs [Nitrostat] 0.4 mg SUBLINGUAL Q5M PRN #25 tab 02/25/15 12/22/19 Rx Albuterol Sulfate [Proventil Hfa] 2 puff INHALATION RT-Q6H PRN 03/19/17 12/22/19 History Sotalol [Betapace] 80 mg PO BID #20 tab 03/21/17 12/22/19 Rx Albuterol Nebulized [Ventolin 2.5 mg INHALATION RT-BID 05/02/17 12/22/19 History Nebulized] Aspirin 81 mg PO DAILY 08/07/18 12/22/19 History Sacubitril/Valsartan [Entresto 24 1 tab PO BID 08/07/18 12/22/19 History mg-26 mg Tablet] Albuterol Nebulized [Ventolin 2.5 mg INHALATION RT-QID PRN 12/22/19 12/22/19 History Nebulized] Atorvastatin [Lipitor] 40 mg PO DAILY 12/22/19 History Clopidogrel [Plavix] 75 mg PO DAILY 12/22/19 History HYDROcodone/APAP 10-325MG [[place] 1 tab PO QID PRN 12/22/19 12/22/19 History 10-325] Lidocaine 5% Patch [Lidoderm] 1 patch TOPICAL DAILY PRN 12/22/19 12/22/19 History Metoprolol Succinate [Toprol XL] 25 mg PO HS 12/22/19 History Spironolactone [Aldactone] 25 mg PO DAILY 12/22/19 12/22/19 History Allergies Allergy/AdvReac Type Severity Reaction Status Date / Time amoxicillin Allergy Rash/Hives Verified 12/22/19 12:15 Penicillins Allergy Rash/Hives Verified 12/22/19 12:15 Physical Examination - Vital Signs Vital Signs: Vital Signs Temp Pulse Pulse Resp BP BP Pulse Ox 12/23/19 08:00 97.5 F L 56 L 20 107/48 96 12/23/19 04:00 97.8 F 45 L 16 101/58 95 12/22/19 23:45 50 L 16 99/54 96 12/22/19 20:00 98.4 F 51 L 18 104/50 96 12/22/19 16:06 51 L 12/22/19 16:00 43 L 12/22/19 14:19 98.0 F 43 L 20 152/66 97 12/22/19 14:00 52 L 10 L 120/75 12/22/19 13:30 51 L 10 L 115/50 12/22/19 13:00 56 L 24 122/63 96 12/22/19 12:30 53 L 14 120/53 97 12/22/19 12:15 54 L 29 H 112/49 96 Intake and Output 12/22/19 12/23/19 12/23/19 22:59 06:59 14:59 Other: Voiding Method Toilet Toilet # Voids 2 2 Weight 69.2 kg GENERAL: The patient is sitting in a chair and is not in acute distress. CHEST: The heart rate is regular rate rhythm. No murmurs to auscultation. No carotid bruit bilaterally. LUNG: Clear to auscultation bilaterally no wheezing noted throughout. Not labored breathing. ABDOMEN/GI: Bowel sounds present in all 4 quadrants. No tenderness to palpation throughout. NEUROLOGICAL: Higher mental function: The patient is awake, alert, oriented to self, place and time. Patient is following commands. No aphasia and no neglect. Cranial nerves: The pupils are round, equal and reactive to light and accommodation. Visual coreas are right temporal upper quadrant homonymous hemianopsia to confrontation throughout. Extraocular movement is intact no nystagmus is noted. Facial sensation is normal to touch throughout. The facial strength is normal throughout. Hearing is normal bilaterally to hand rub. Tongue is midline and moved [id number] without any difficulty. No dysarthria is noted. Shoulder shrug is normal bilaterally. Motor: Gait is normal with normal arm swings. The strength is 5 over 5 throughout. Normal tone and bulk. Cerebellum: Normal finger to nose heel to marroquin bilaterally. Sensation: Sensation is normal to touch throughout. Reflexes (right/left): 2+ throughout except at ankles 1+ Plantars are mute bilaterally. Results - Laboratory Findings CBC and BMP: 12/22/19 11:25 12/22/19 11:25 Abnormal Lab Findings: Abnormal Labs 12/22/19 12/22/19 12/22/19 11:14 11:25 11:25 Sodium 136 L BUN 24 H Creatinine 1.30 H Glucose 122 H POC Glucose (mg/dL) 130 H Total Bilirubin 1.6 H Triglycerides 243 H HDL Cholesterol 26 L Assessment and Plan Assessment: This is a 73-year-old left-handed gentleman with medical history of coronary artery disease s/p stent, hypertension, hyperlipidemia, heart failure s/p defibrillator, that presented to the emergency department on 12/22/2019 feeling disoriented and having visual problems in the right eye. His vision problem happened 12/21/2019 towards night. Subacute left occipital ischemic stroke. Unknown etiology HTN Hyperlipidemia CAD s/p stent Heart failure s/p defibrillator Plan: Stroke work-up include: -CT of the head that was done on 12/22/2019 which showed acute CVA over the left occipital lobe without evidence for hemorrhagic transformation. I personally reviewed that a CT of the head and I felt was not acute was more subacute at least left occipital ischemic stroke. -Recommend getting an CT angiogram of brain to assess the intracranial vessels. He can't get MRI of the brain since the patient has defibrillator. -Carotid duplex was performed and was documented as no significant flow limiting stenosis based on ultrasound velocities. Shows atheromatous plaquing and intimal thickening is present bilaterally. -2-D echo was reported as left ventricular size is normal. There is mild concentric left ventricular hypertrophy. Moderate global hypokinesis of left ventricle. Ejection fraction of 40-45%. -Lipid profile was completed in the triglyceride was 243, cholesterol is 164, L DLs 89, HDL is 26. TSH of 2.95. hemoglobin A1c; last hemoglobin A1c on the system was 4.7 on 06/20/2016 we will repeat another hemoglobin A1c At home patient was on aspirin 81 mg, Plavix 75 mg and statin (unknown). Currently the patient is on aspirin 325 daily, Lipitor 40 mg daily. I'll also add his a home Plavix dose. Target LDL less than 70. cardiac monitoring. Cardiology is on board and they will interrogate the AICD to see if patient had A. fib PT/OT are on board. Thank you for the consult Kiet Escobedo MD Neuro-hospitalist Time with Patient: Greater than 30
--- NOTE | 2019-12-23 15:01 | CT ---
EXAMINATION TYPE: CT angio head neck DATE OF EXAM: 12/23/2019 HISTORY: Subacute left occipital stroke COMPARISON: Carotid ultrasound yesterday. CT DLP: 479.8 mGycm. Automated Exposure Control for Dose Reduction was Utilized. TECHNIQUE: CTA scan of the head and neck are performed without and with IV Contrast, patient injecte d with 65 ml mL of Isovue 370, axial images are obtained, coronal and sagittal reformatted images are reviewed. Three-D reconstructed images are created on an independent workstation and reviewed. FINDINGS: Carotid/Vascular Structures: Normal three-vessel origin from aortic arch. Right common carotid artery shows normal origin from right brachiocephalic artery. Mild peripheral calcified plaque along right common carotid artery. More prominent severe mixed but predominantly noncalcified plaque right caroti d bulb extending into proximal internal carotid artery causes significant stenosis. Abdomen diameter narrowed to 3.5 mm long right lateral margin of the proximal internal carotid artery raw data slice 3 45. This stenosis best seen reconstructed image 7. I measure [place] lumen diameter at this level 10.3 . There is tapering past this point with lumen diameter only 5.0 mm. Patent right external carotid ar marlon without significant stenosis. Remainder right internal carotid artery shows minimal calcified pl aque supraclinoid segment. Mild to moderate mixed plaque in the mid to distal left common carotid artery without significant niki nosis. More moderate to severe mixed plaque left carotid bulb extending into proximal internal and ex ternal carotid arteries without significant plaque or stenosis. Mild calcified plaque supraclinoid se gment distal left internal carotid artery. There is dominant left vertebral artery. Vertebral arteries are patent to basilar junction. No signif icant focal stenosis or aneurysmal change. Hypoplastic bilateral posterior communicating arteries. Hy poplastic anterior communicating artery. No significant focal stenosis or aneurysmal change in the an terior circulation. Other: Moderate emphysematous change in the visualized upper lungs. Partial visualization of pacemake r in the thorax. Large mucous retention cyst or polyp right ethmoid sinus axial image 24 series 405. Mild to moderate eccentric mucosal thickening with some patchy fluid in the dependent portion of the bilateral maxilla ry sinuses. Redemonstration of suspected acute/subacute left occipital infarct axial image 23 series 405. Slight scoliotic curvature. Moderate multilevel disc space narrowing greatest C5-C6 level in the cerv ical spine. Multilevel uncovertebral facet degenerative changes bilaterally. IMPRESSION: 1. No significant stenosis or aneurysmal change at the level of the [place]. 2. Severe mixed but predominantly noncalcified plaque right carotid bulb extending into the proximal internal carotid artery causing narrowing 65-70% proximal internal carotid artery relative to [place] lumen at this level but less than 50% narrowing based on NASCET criteria.
[2019-12-23] MEDS: CLOPIDOGREL 75 MG TAB PO SCH (16:16)
[2019-12-23] MEDS: METOPROLOL SUCCINATE (ER) 25 MG TAB.ER.24H PO SCH (20:01)
[2019-12-24] MEDS: PANTOPRAZOLE 40 MG TABLET PO SCH (06:09)
[2019-12-24] MEDS: SYMBICORT 160-4.5 MCG INHALER INHALATION SCH ×2 (07:55→20:21)
[2019-12-24] MEDS: IPRATROPIUM 0.5 MG/2.5 ML NEBU INHALATION SCH ×4 (07:55→20:21)
[2019-12-24] MEDS: ASPIRIN 325 MG TAB PO SCH (08:36)
[2019-12-24] MEDS: ATORVASTATIN 40 MG TAB PO SCH (08:36)
[2019-12-24] MEDS: CLOPIDOGREL 75 MG TAB PO SCH (08:37)
[2019-12-24] MEDS: SPIRONOLACTONE 25 MG TAB PO SCH (08:37)
[2019-12-24] MEDS: SACUBITRIL/VALSARTAN 24 MG-26 MG TABLET PO SCH ×2 (08:37→21:04)
[2019-12-24] MEDS: SOTALOL 80 MG TAB PO SCH ×2 (08:37→21:04)
[2019-12-24] MEDS: HEPARIN SODIUM,PORCINE 5,000 UNIT/ML 1 ML VIAL SQ SCH ×2 (08:37→19:58)
[2019-12-24 08:50] LABS: Potassium 4.5 mmol/L (3.5-5.1)
--- NOTE | 2019-12-24 10:17 | P.PN ---
Subjective Progress Note Date: 12/24/19 Principal diagnosis: Cardiomyopathy This is a very pleasant 73-year-old gentleman who sees Dr. Farmer in the office on regular basis with coronary artery disease and prior stenting of the RCA multiple times, ischemic cardiomyopathy, status post AICD, as well as hypertension and dyslipidemia presented to the hospital because of vision disturbance in the right eye. The patient was in his usual state of health yesterday when he was at home and suddenly he felt that he lost the vision in the right eye. No slurred speech. No numbness or weakness in the upper or lower extremities. No dizziness or lightheadedness or syncope. No symptoms of chest pain or chest discomfort. And no shortness of breath. He presented to the emergency department where he underwent a computed tomography scan of the brain and that revealed infarction in the left occipital lobe. The patient does have coronary artery disease and cardiomyopathy but he never been diagnosed in atrial fibrillation or any cardiac arrhythmia in the past. We are in process of getting an AICD interrogation on him later on today. He is on dual antiplatelet at home with aspirin as well as Plavix and also he is on a statin. The EKG showed sinus bradycardia. There is diffuse nonspecific ST and T wave abnormalities. The computed tomography scan as described above showed left occipital lobe infarction. The rest of his blood work overall came in to be unremarkable. He underwent an echocardiogram during this admission and that revealed impaired LV function was EF between 40-45%. The patient was seen today December [id number]. Overall and from a perivascular standpoint overview, he is asymptomatic. He denies any chest pain or chest discomfort or shortness of breath or dizziness or lightheadedness. The AICD is going to be interrogated today. He does have episodes of sinus bradycardia with heart rate in the 40s without pacing. Also his blood pressure has been marginal in the 90s. I'm going to decrease the dose of metoprolol to 12.5 mg by mouth twice a day. Follow-up after the AICD interrogation Objective - Vital Signs Vital signs: Vital Signs Temp 98.4 F 12/24/19 08:00 Pulse 60 12/24/19 08:15 Resp 17 12/24/19 08:00 BP 99/57 12/24/19 08:00 Pulse Ox 97 12/24/19 08:00 Intake & Output 12/23/19 12/24/19 12/24/19 18:59 06:59 18:59 Intake Total 240 Balance 240 Intake: Oral 240 Other: Voiding Method Toilet Toilet # Voids 1 2 - Constitutional General appearance: Present: no acute distress - Respiratory Respiratory: bilateral: CTA - Cardiovascular Rhythm: regular Heart sounds: normal: S1, S2 - Labs CBC & Chem 7: 12/22/19 11:25 12/24/19 08:14 Labs: Abnormal Lab Results - Last 24 Hours (Table) 12/24/19 Range/Units 08:14 BUN 28 H (9-20) mg/dL Glucose 119 H (74-99) mg/dL Assessment and Plan Assessment: Assessment #1 acute cerebral infarction #2 coronary artery disease #3 ischemic cardiomyopathy #4 status post AICD #5 hypertension #6 dyslipidemia Plan #1 rule out cardiac arrhythmia like atrial fibrillation #2 follow-up after the AICD interrogation #3 decrease the dose of metoprolol in view of the low blood pressure and low heart rate #4 follow-up with the patient
--- NOTE | 2019-12-24 15:31 | P.PN ---
Subjective Progress Note Date: 12/24/19 Principal diagnosis: Subacute left occpital stroke Patient was seen at bedside and states he is doing well no change. Denies any new neurological symptoms. Objective - Vital Signs Vital signs: Vital Signs Temp 98.0 F 12/24/19 11:31 Pulse 58 L 12/24/19 15:16 Resp 16 12/24/19 11:31 BP 90/50 12/24/19 14:46 Pulse Ox 98 12/24/19 11:31 Intake & Output 12/23/19 12/24/19 12/24/19 18:59 06:59 18:59 Intake Total 240 Balance 240 Intake: Oral 240 Other: Voiding Method Toilet Toilet # Voids 1 2 3 - Exam GENERAL: The patient is sitting in a chair and is not in acute distress. CHEST: The heart rate is regular rate rhythm. No murmurs to auscultation. No carotid bruit bilaterally. LUNG: Clear to auscultation bilaterally no wheezing noted throughout. Not labored breathing. ABDOMEN/GI: Bowel sounds present in all 4 quadrants. No tenderness to palpation throughout. NEUROLOGICAL: Higher mental function: The patient is awake, alert, oriented to self, place and time. Patient is following commands. No aphasia and no neglect. Cranial nerves: The pupils are round, equal and reactive to light and accommodation. Visual coreas are right upper quadrant homonymous hemianopsia to confrontation. Extraocular movement is intact no nystagmus is noted. Facial sensation is normal to touch throughout. The facial strength is normal throughout. Hearing is normal bilaterally to hand rub. Tongue is midline and moved [id number] without any difficulty. No dysarthria is noted. Shoulder shrug is normal bilaterally. Motor: Gait is normal with normal arm swings. The strength is 5 over 5 throughout. Normal tone and bulk. Cerebellum: Normal finger to nose heel to marroquin bilaterally. Sensation: Sensation is normal to touch throughout. Reflexes (right/left): 2+ throughout except at ankles 1+ Plantars are mute bilaterally. - Labs CBC & Chem 7: 12/22/19 11:25 12/24/19 08:14 Labs: Abnormal Lab Results - Last 24 Hours (Table) 12/24/19 Range/Units 08:14 BUN 28 H (9-20) mg/dL Glucose 119 H (74-99) mg/dL Assessment and Plan Assessment: This is a 73-year-old left-handed gentleman with medical history of coronary artery disease s/p stent, hypertension, hyperlipidemia, heart failure s/p defibrillator, that presented to the emergency department on 12/22/2019 feeling disoriented and having visual problems in the right eye. His vision problem happened 12/21/2019 towards night. Subacute left occipital ischemic stroke. Unknown etiology Asypmtomatic Right ICA stenosis (per NASCENT criteria <50%) HTN Hyperlipidemia CAD s/p stent Heart failure s/p defibrillator Plan: Stroke work-up include: -CT of the head that was done on 12/22/2019 which showed acute CVA over the left occipital lobe without evidence for hemorrhagic transformation. I personally reviewed that a CT of the head and I felt was not acute was more subacute at least left occipital ischemic stroke. -CT angiogram of head and neck: Was reported as no significant stenosis or aneurysm changes at the levels [employer] [place]. This showed severe mixed but predominantly noncalcified base plaque right carotid bulb extending into the proximal internal carotid artery causing narrowing 60-70% proximal internal carotid artery relative to [place] ligament at this level less than 50% narrowing based on NASCET criteria. Which is asymptomic and only need medical management. -Carotid duplex was performed and was documented as no significant flow limiting stenosis based on ultrasound velocities. Shows atheromatous plaquing and intimal thickening is present bilaterally. -2-D echo was reported as left ventricular size is normal. There is mild concentric left ventricular hypertrophy. Moderate global hypokinesis of left ventricle. Ejection fraction of 40-45%. -Lipid profile was completed in the triglyceride was 243, cholesterol is 164, LDLs 89, HDL is 26. TSH of 2.95. hemoglobin A1c: is 4.9. At home patient was on aspirin 81 mg, Plavix 75 mg and statin (unknown). Currently the patient is on aspirin 325 daily and Plavix 75mg and he need to continue on them. Will increase Lipitor from 40 mg to 80mg daily. Target LDL less than 70. cardiac monitoring. Cardiology is on board and they will interrogate the AICD to see if patient had A. fib PT/OT are on board. No further neurology work-up. He needs to follow-up with a neurologist as an outpatient for a subacute stroke. Kiet Escobedo MD Neuro-hospitalist Time with Patient: Greater than 30
--- NOTE | 2019-12-24 16:56 | P.PN ---
Subjective Progress Note Date: 12/24/19 Principal diagnosis: CVA Patient was seen and examined. No acute events overnight. Patient reports improvement in his vision on the right side. He denies any chest pain, shortn ess of breath or palpitations. No nausea or vomiting. No fever or chills. No gait disturbances. Objective - Vital Signs Vital signs: Vital Signs Temp 98.0 F 12/24/19 11:31 Pulse 58 L 12/24/19 15:27 Resp 16 12/24/19 11:31 BP 90/50 12/24/19 14:46 Pulse Ox 98 12/24/19 11:31 Intake & Output 12/23/19 12/24/19 12/24/19 18:59 06:59 18:59 Intake Total 240 Balance 240 Intake: Oral 240 Other: Voiding Method Toilet Toilet # Voids 1 2 3 - Exam General: [non toxic], [no distress], [appears at stated age] Derm: [warm], [dry] Head: [atraumatic], [normocephalic], [symmetric] Eyes: [EOMI], [no lid lag], [anicteric sclera] Mouth: [no lip lesion], [mucus membranes moist] Cardiovascular: [S1S2 reg], [no murmur], [positive DP pulse bilateral], Lungs: [CTA bilateral], [no rhonchi, no rales] , [no accessory muscle use] Abdominal: [soft], [ nontender to palpation], [no guarding], [no appreciable organomegaly] Ext: [no gross muscle atrophy], [no edema], [no contractures] Neuro: [ CN II-XI grossly intact except for decreased vision to confrontation on the right side], [no focal neuro deficits] Psych: [Alert], [oriented], [appropriate affect] - Labs CBC & Chem 7: 12/22/19 11:25 12/24/19 08:14 Labs: Abnormal Lab Results - Last 24 Hours (Table) 12/24/19 Range/Units 08:14 BUN 28 H (9-20) mg/dL Glucose 119 H (74-99) mg/dL Assessment and Plan Assessment: Acute CVA involving left occipital lobe Carotid stenosis Ischemic cardiomyopathy with chronic systolic failure, not in exacerbation CAD post stent placement COPD with no exacerbation History of NSVT post ablation in 2017 Patient will need to have AICD interrogated by cardiology today. Case was discussed with Dr. Davies, will discuss with radiology regarding 65-70% proximal internal carotid artery stenosis on the right side. Continue aspirin, Lipitor and Plavix. Continue advance neurochecks. Continue telemetry monitoring. PTOT and ST cleared. Management as above. Echocardiogram showing EF 40-45% with global hypokinesis. Metoprolol dose decreased due to bradycardia. Continue Sotalol and Entresto. Follow cardiology recommendations. Continue aspirin, Lipitor and Lasix. Continue beta kim. Continue Symbicort. Continue ipratropium. Albuterol neb as needed for shortness of breath and wheezing. Management as above. Cardiology on board. [Patient admitted after occipital stroke. Found to have carotid stenosis. Discussed with Dr. Davies, will review CTA with radiologist for additional recom mendations. Patient is pending clinical improvement. Likely DC tomorrow if patient continues to show improvement.
[2019-12-24] MEDS ORDERED: ATORVASTATIN 80 MG TAB PO SCH (21:00)
[2019-12-24] MEDS ORDERED: METOPROLOL SUCCINATE (ER) 25 MG TAB.ER.24H PO SCH (21:00)
[2019-12-25 05:55] VITALS: TEMP 97.8
[2019-12-25] MEDS: PANTOPRAZOLE 40 MG TABLET PO SCH (06:13)
[2019-12-25] MEDS: HEPARIN SODIUM,PORCINE 5,000 UNIT/ML 1 ML VIAL SQ SCH (07:56)
[2019-12-25] MEDS: ASPIRIN 325 MG TAB PO SCH (07:56)
[2019-12-25] MEDS: SACUBITRIL/VALSARTAN 24 MG-26 MG TABLET PO SCH (07:56)
[2019-12-25] MEDS: SOTALOL 80 MG TAB PO SCH (07:56)
[2019-12-25] MEDS: SPIRONOLACTONE 25 MG TAB PO SCH (07:56)
[2019-12-25] MEDS: CLOPIDOGREL 75 MG TAB PO SCH (07:56)
[2019-12-25 08:03] VITALS: BP 98/50; RESP 20
[2019-12-25] MEDS: IPRATROPIUM 0.5 MG/2.5 ML NEBU INHALATION SCH ×2 (09:26→09:27)
[2019-12-25] MEDS: SYMBICORT 160-4.5 MCG INHALER INHALATION SCH (09:27)
[2019-12-25 09:40] VITALS: PULSE 59
--- NOTE | 2019-12-25 10:37 | P.PN ---
Subjective Progress Note Date: 12/25/19 Principal diagnosis: Cardiomyopathy This is a very pleasant 73-year-old gentleman who sees Dr. Farmer in the office on regular basis with coronary artery disease and prior stenting of the RCA multiple times, ischemic cardiomyopathy, status post AICD, as well as hypertension and dyslipidemia presented to the hospital because of vision disturbance in the right eye. The patient was in his usual state of health yesterday when he was at home and suddenly he felt that he lost the vision in the right eye. No slurred speech. No numbness or weakness in the upper or lower extremities. No dizziness or lightheadedness or syncope. No symptoms of chest pain or chest discomfort. And no shortness of breath. He presented to the emergency department where he underwent a computed tomography scan of the brain and that revealed infarction in the left occipital lobe. The patient does have coronary artery disease and cardiomyopathy but he never been diagnosed in atrial fibrillation or any cardiac arrhythmia in the past. We are in process of getting an AICD interrogation on him later on today. He is on dual antiplatelet at home with aspirin as well as Plavix and also he is on a statin. The EKG showed sinus bradycardia. There is diffuse nonspecific ST and T wave abnormalities. The computed tomography scan as described above showed left occipital lobe infarction. The rest of his blood work overall came in to be unremarkable. He underwent an echocardiogram during this admission and that revealed impaired LV function was EF between 40-45%. The patient was seen today, August 242019. He remains asymptomatic from a cardiovascular standpoint of view. We did a remote monitoring of his device and that revealed multiple brief episodes of A. fib with RVR. Having said that he to be on anticoagulation with going to start the patient on Eliquis and DC his Plavix and continue the aspirin. Beside that I did review his CTA of the carotid and that revealed only intermediate lesion involving the right internal carotid artery by the bifurcation. I would advise a conservative medical approach and medical treatment only. Objective - Vital Signs Vital signs: Vital Signs Temp 97.8 F 12/25/19 07:56 Pulse 59 L 12/25/19 09:39 Resp 20 12/25/19 07:56 BP 98/50 12/25/19 07:56 Pulse Ox 98 12/25/19 07:56 Intake & Output 12/24/19 12/25/19 12/25/19 18:59 06:59 18:59 Output Total 420 Balance -420 Weight 69.7 kg Output: Urine 420 Other: Voiding Method Toilet Toilet # Voids 3 3 # Bowel Movements 1 - Constitutional General appearance: Present: no acute distress - Respiratory Respiratory: bilateral: CTA - Cardiovascular Rhythm: regular Heart sounds: normal: S1, S2 - Labs CBC & Chem 7: 12/22/19 11:25 12/24/19 08:14 Assessment and Plan Assessment: Assessment #1 acute cerebral infarction #2 coronary artery disease #3 ischemic cardiomyopathy #4 status post AICD #5 hypertension #6 dyslipidemia Plan #1 continue current medical regimen #2 DC Plavix and start the patient on oral anticoagulation #3, severe medical treatment for the carotid disease #4 follow-up with the patient
--- NOTE | 2019-12-25 15:41 | P.DS ---
Providers Date of admission: 12/22/19 13:15 Expected date of discharge: 12/25/19 Attending physician: Felix Rodriguez Consults: 12/22/19 15:33 Consult Physician Routine Consulting Provider: Kiet Escobedo Consult Reason/Comments: cva Do you want consulting provider notified?: Yes 12/22/19 15:35 Consult Physician Routine Consulting Provider: Rafael Cherry Consult Reason/Comments: Stroke, AICD interrogation Do you want consulting provider notified?: Yes Primary care physician: [facility] Course: This is a 73-year-old male with complex past medical history noted below who presented to the emergency room feeling disoriented and having vision problem in his right eye. Patient was his baseline state of health until Saturday night when he noted that he was little bit disoriented. Patient went to sleep and woke up Saturday and told me that he was having difficulty with his speech. He also told me that he was having difficulty with his vision in the right eye where he can't see the lateral part of his right visual field. He did not have any visual complaints in the ER. Patient denies any numbness or weakness. He complained of mild headache yesterday that was more constant today. He denies any headache at this time. No fever or chills. No other complaints. Patient was evaluated in the ER and was found to have an acute stroke involving the left occipital lobe. He is admitted to the hospital for further management. Patient denies any history of prior stroke. He reports taking aspirin at home daily. CT brain showed acute CVA in the left occipital lobe. Carotid Doppler showed no significant flow-limiting stenosis. Echocardiogram showed EF 40-45% with global hypokinesis. CTA head and neck showed severe mixed but predominantly noncalcified plaque in the right carotid bulb extending into the proximal internal carotid causing narrowing 65-70%. Neurology was consulted and recommended addition of Plavix to aspirin. Cardiology was consulted to interrogate AICD and pacemaker. Patient was found to have brief episodes of A. fib on interrogation. Cardiology recommended anticoagulation with Eliquis and discontinuation of Plavix. Patient was evaluated by PT, OT and ST and cleared for discharge. The case was discussed with Dr. Davies regarding abnormal CTA head and neck, Dr. Higuera recommended no intervention at this time. Patient was seen and examined. No acute events overnight. Patient reports visual disturbance in the right eye which has improved since yesterday. He denies any gait disturbances. He denies any chest pain, shortness breath or palpitations. No nausea or vomiting. No fever or chills. General: [non toxic], [no distress], [appears at stated age] Derm: [warm], [dry] Head: [atraumatic], [normocephalic], [symmetric] Eyes: [EOMI], [no lid lag], [anicteric sclera] Mouth: [no lip lesion], [mucus membranes moist] Cardiovascular: [S1S2 reg], [no murmur], [positive DP pulse bilateral], Lungs: [CTA bilateral], [no rhonchi, no rales] , [no accessory muscle use] Abdominal: [soft], [ nontender to palpation], [no guarding], [no appreciable organomegaly] Ext: [no gross muscle atrophy], [no edema], [no contractures] Neuro: [ CN II-XI grossly intact except for decreased vision to confrontation on the right side], [no focal neuro deficits] Psych: [Alert], [oriented], [appropriate affect] Acute CVA involving left occipital lobe Carotid stenosis Ischemic cardiomyopathy with chronic systolic failure, not in exacerbation CAD post stent placement COPD with no exacerbation History of NSVT post ablation in 2017 Was noted to have episodes of A. fib on AICD interrogation. Case was discussed with Dr. Davies, does not recommend any intervention for carotid stenosis seen on CTA head and neck. Continue aspirin, Lipitor. Dr. Higuera recommends discontinuing Plavix and starting Eliquis for anticoagulation of A. fib. PTOT and ST cleared. Management as above. Echocardiogram showing EF 40-45% with global hypokinesis. Metoprolol dose decreased due to bradycardia. Continue Sotalol and Entresto. Follow cardiology recommendations. Continue aspirin, Lipitor and Lasix. Continue beta kim. Continue Symbicort. Continue ipratropium. Albuterol neb as needed for shortness of breath and wheezing. Management as above. Cardiology on board. This complex discharge took about 35 minutes to complete. Pertinent Studies: Brain CT, chest x-ray, carotid Doppler, echocardiogram, CT head and neck Patient Condition at Discharge: Stable Plan - Discharge Summary Discharge Rx Participant: Yes New Discharge Prescriptions: New Aspirin 325 mg PO DAILY #30 tab Apixaban [Eliquis] 2.5 mg PO BID #60 tablet Metoprolol Succinate (ER) [Toprol XL] 12.5 mg PO HS #30 tab.er.24h Continue Omeprazole [PriLOSEC] 20 mg PO AC-BRKFST Folic Acid 1 mg PO DAILY Cholecalciferol [Vitamin D3 (25 Mcg = 1000 Iu)] 2,000 unit PO DAILY Budesonide-Formot 160-4.5 Mcg [Symbicort 160-4.5 Mcg Inhaler] 2 puff INHALATION RT-BID Tiotropium [place] [Spiriva] 2 cap INHALATION RT-DAILY Nitroglycerin Sl Tabs [Nitrostat] 0.4 mg SUBLINGUAL Q5M PRN #25 tab PRN Reason: Chest Pain Albuterol Sulfate [Proventil Hfa] 2 puff INHALATION RT-Q6H PRN PRN Reason: Shortness Of Breath Sotalol [Betapace] 80 mg PO BID #20 tab Albuterol Nebulized [Ventolin Nebulized] 2.5 mg INHALATION RT-BID Sacubitril/Valsartan [Entresto 24 mg-26 mg Tablet] 1 tab PO BID Atorvastatin [Lipitor] 40 mg PO DAILY Spironolactone [Aldactone] 25 mg PO DAILY Lidocaine 5% Patch [Lidoderm 5% Patch] 1 patch TOPICAL DAILY PRN PRN Reason: Pain Albuterol Nebulized [Ventolin Nebulized] 2.5 mg INHALATION RT-QID PRN PRN Reason: Shortness Of Breath HYDROcodone/APAP 10-325MG [[place] 10-325] 1 tab PO QID PRN PRN Reason: Pain Discontinued Aspirin 81 mg PO DAILY Clopidogrel [Plavix] 75 mg PO DAILY Metoprolol Succinate [Toprol XL] 25 mg PO HS Discharge Medication List Budesonide-Formot 160-4.5 Mcg [Symbicort 160-4.5 Mcg Inhaler] 2 puff INHALATION RT-BID 02/22/15 [History] Cholecalciferol [Vitamin D3 (25 Mcg = 1000 Iu)] 2,000 unit PO DAILY 02/22/15 [History] Folic Acid 1 mg PO DAILY 02/22/15 [History] Omeprazole [PriLOSEC] 20 mg PO AC-BRKFST 10/06/15 [History] Tiotropium [place] [Spiriva] 2 cap INHALATION RT-DAILY 02/22/15 [History] Nitroglycerin Sl Tabs [Nitrostat] 0.4 mg SUBLINGUAL Q5M PRN #25 tab 02/25/15 [Rx] Albuterol Sulfate [Proventil Hfa] 2 puff INHALATION RT-Q6H PRN 03/19/17 [History] Sotalol [Betapace] 80 mg PO BID #20 tab 03/21/17 [Rx] Albuterol Nebulized [Ventolin Nebulized] 2.5 mg INHALATION RT-BID 05/02/17 [History] Sacubitril/Valsartan [Entresto 24 mg-26 mg Tablet] 1 tab PO BID 08/07/18 [History] Albuterol Nebulized [Ventolin Nebulized] 2.5 mg INHALATION RT-QID PRN 12/22/19 [History] Atorvastatin [Lipitor] 40 mg PO DAILY 12/22/19 [History] HYDROcodone/APAP 10-325MG [[place] 10-325] 1 tab PO QID PRN 12/22/19 [History] Lidocaine 5% Patch [Lidoderm 5% Patch] 1 patch TOPICAL DAILY PRN 12/22/19 [History] Spironolactone [Aldactone] 25 mg PO DAILY 12/22/19 [History] Apixaban [Eliquis] 2.5 mg PO BID #60 tablet 12/25/19 [Rx] Aspirin 325 mg PO DAILY #30 tab 12/25/19 [Rx] Metoprolol Succinate (ER) [Toprol XL] 12.5 mg PO HS #30 tab.er.24h 12/25/19 [Rx] Follow up Appointment(s)/Referral(s): Juancho Vazquez MD [Primary Care Provider] - 1-2 days (Office is closed, please call Saturday for an appointment. ) Jackie Pickens MD [REFERRING] - 1 Week (Office will call you with an appointment time! ) Augustus Higuera MD [STAFF PHYSICIAN] - 12/31/19 1:30 pm Patient Instructions/Handouts: A-fib (Atrial Fibrillation) (GEN), Carotid Artery Disease (GEN), Ischemic Stroke (GEN) Activity/Diet/Wound Care/Special Instructions: Diet: Cardiac FU PCP within 3 days of DC. FU with Cardiology within 1 week of DC. FU with Neurology within 1 week of DC. Take all meds as advised. Come back to ED or call 911 for worsening CP, SOB, palpitations, dizziness, numbness/weakness/tingling of the extremities or new visual disturbances, or changes in gait. Discharge Disposition: HOME SELF-CARE
--- NOTE | 2019-12-25 19:03 | P.PN ---
Subjective Progress Note Date: 12/25/19 Principal diagnosis: Subacute left occpital stroke Patient was seen at bedside and states he is doing well no change. Denies any new neurological symptoms. Spoke with cardiology team and they reviewed patient AICD and they felt patient had Atrial-fibrillation Objective - Vital Signs Vital signs: Vital Signs Temp 97.8 F 12/25/19 07:56 Pulse 59 L 12/25/19 09:39 Resp 20 12/25/19 07:56 BP 98/50 12/25/19 07:56 Pulse Ox 98 12/25/19 07:56 Intake & Output 12/25/19 12/25/19 12/26/19 06:59 18:59 06:59 Output Total 420 Balance -420 Weight 69.7 kg Output: Urine 420 Other: Voiding Method Toilet # Voids 3 1 # Bowel Movements 1 - Exam GENERAL: The patient is sitting in a chair and is not in acute distress. CHEST: The heart rate is regular rate rhythm. No murmurs to auscultation. No carotid bruit bilaterally. LUNG: Clear to auscultation bilaterally no wheezing noted throughout. Not labored breathing. ABDOMEN/GI: Bowel sounds present in all 4 quadrants. No tenderness to palpation throughout. NEUROLOGICAL: Higher mental function: The patient is awake, alert, oriented to self, place and time. Patient is following commands. No aphasia and no neglect. Cranial nerves: The pupils are round, equal and reactive to light and accommodation. Visual coreas are right upper quadrant homonymous hemianopsia to confrontation. Extraocular movement is intact no nystagmus is noted. Facial sensation is normal to touch throughout. The facial strength is normal throughout. Hearing is normal bilaterally to hand rub. Tongue is midline and moved [id number] without any difficulty. No dysarthria is noted. Shoulder shrug is normal bilaterally. Motor: Gait is normal with normal arm swings. The strength is 5 over 5 throughout. Normal tone and bulk. Cerebellum: Normal finger to nose heel to marroquin bilaterally. Sensation: Sensation is normal to touch throughout. Reflexes (right/left): 2+ throughout except at ankles 1+ Plantars are mute bilaterally. - Labs CBC & Chem 7: 12/22/19 11:25 12/24/19 08:14 Assessment and Plan Assessment: This is a 73-year-old left-handed gentleman with medical history of coronary artery disease s/p stent, hypertension, hyperlipidemia, heart failure s/p defibrillator, that presented to the emergency department on 12/22/2019 feeling disoriented and having visual problems in the right eye. His vision problem happened 12/21/2019 towards night. Subacute left occipital ischemic stroke secondary due to Atrial fibrillation (per cardiology AICD was interrogated and showed brief Atrial fibrillation) Asypmtomatic Right ICA stenosis (per NASCENT criteria <50%) HTN Hyperlipidemia CAD s/p stent Heart failure s/p defibrillator Plan: Stroke work-up include: -CT of the head that was done on 12/22/2019 which showed acute CVA over the left occipital lobe without evidence for hemorrhagic transformation. I personally reviewed that a CT of the head and I felt was not acute was more subacute at least left occipital ischemic stroke. -CT angiogram of head and neck: Was reported as no significant stenosis or aneurysm changes at the levels [facility] [place]. This showed severe mixed but predominantly noncalcified base plaque right carotid bulb extending into the proximal internal carotid artery causing narrowing 60-70% proximal internal carotid artery relative to [place] ligament at this level less than 50% narrowing based on NASCET criteria. Which is asymptomic and only need medical management. -Carotid duplex was performed and was documented as no significant flow limiting stenosis based on ultrasound velocities. Shows atheromatous plaquing and intimal thickening is present bilaterally. -2-D echo was reported as left ventricular size is normal. There is mild concentric left ventricular hypertrophy. Moderate global hypokinesis of left ventricle. Ejection fraction of 40-45%. -Lipid profile was completed in the triglyceride was 243, cholesterol is 164, LDLs 89, HDL is 26. TSH of 2.95. hemoglobin A1c: is 4.9. At home patient was on aspirin 81 mg, Plavix 75 mg and statin (unknown). Currently the patient is on aspirin 325 daily and Plavix 75mg and he need to continue on them. Will increase Lipitor from 40 mg to 80mg daily. Target LDL less than 70. cardiac monitoring. Cardiology is on board and interrogate the AICD which showed atrial fibrillation. Therefore recommend patient to be placed on anticoagulation. From neurology perspective patient does not need to be on dual antiplatelets and that was relayed to cardiology team. PT/OT are on board. No further neurology work-up. He needs to follow-up with a neurologist as an outpatient for a subacute stroke. Kiet Escobedo MD Neuro-hospitalist Time with Patient: Less than 30
[2019-12-25] MEDS ORDERED: APIXABAN 2.5 MG TABLET PO SCH (21:00)
== END 2019-12-25 13:41 | disposition home or self-care (01) | DRG 65 ==
LOC: EC 10:57 → 3SCARD 13:15
PROVIDERS: ADMIT Internal Medicine; ATTEND Internal Medicine
PROC: 4B02XTZ Measurement of Cardiac Defibrillator, External Approach (ICD-10-PCS; principal; 2019-12-22)
DX: I63.9 Cerebral infarction, unspecified (principal); I50.22 Chronic systolic (congestive) heart failure; I25.10 Atherosclerotic heart disease of native coronary artery without angina pectoris; E78.5 Hyperlipidemia, unspecified; I25.5 Ischemic cardiomyopathy; M19.90 Unspecified osteoarthritis, unspecified site; Z96.1 Presence of intraocular lens; I11.0 Hypertensive heart disease with heart failure; J44.9 Chronic obstructive pulmonary disease, unspecified; I48.91 Unspecified atrial fibrillation; K22.70 Barrett's esophagus without dysplasia; I65.21 Occlusion and stenosis of right carotid artery; R40.2363 Coma scale, best motor response, obeys commands, at hospital admission; R40.2143 Coma scale, eyes open, spontaneous, at hospital admission; R40.2253 Coma scale, best verbal response, oriented, at hospital admission; Z11.59 Encounter for screening for other viral diseases; Z79.82 Long term (current) use of aspirin; Z79.51 Long term (current) use of inhaled steroids; Z79.899 Other long term (current) drug therapy; Z80.0 Family history of malignant neoplasm of digestive organs; Z79.02 Long term (current) use of antithrombotics/antiplatelets; Z88.1 Allergy status to other antibiotic agents; Z88.0 Allergy status to penicillin; I25.2 Old myocardial infarction; Z82.49 Family history of ischemic heart disease and other diseases of the circulatory system; Z85.828 Personal history of other malignant neoplasm of skin; Z86.79 Personal history of other diseases of the circulatory system; Z87.891 Personal history of nicotine dependence; Z95.5 Presence of coronary angioplasty implant and graft; Z95.810 Presence of automatic (implantable) cardiac defibrillator; Z98.41 Cataract extraction status, right eye; Z98.42 Cataract extraction status, left eye; Z98.890 Other specified postprocedural states
CPT/HCPCS: 36415; 70450; 70496; 70498; 71046; 80048; 80053; 80061; 83036; 84443; 84484; 85025; 85610; 85730; 93005; 93306; 93880; 94640; 94760; 99291

== ENCOUNTER 2020-05-19 12:56 | Inpatient (IN) | payer MEDICARE ==
[2020-05-19] MEDS ORDERED: ALBUTEROL HFA INHALER INHALATION STA (13:04)
[2020-05-19] MEDS ORDERED: methylPREDNISolone SOD SUCCI 125 MG/2 ML VIAL IV STA (13:05)
--- NOTE | 2020-05-19 13:13 | ED ---
General Adult HPI - General Stated complaint: COVID + SOB Time Seen by Provider: 05/19/20 12:58 Source: patient, EMS, RN notes reviewed Mode of arrival: EMS Limitations: physical limitation - History of Present Illness Initial comments: Patient is a pleasant 74-year-old male presenting to the emergency Department with complaints of difficulty in breathing. Onset of symptoms was a few days ago. Patient was tested positive for covid on May 05. Patient does have cough with occasional yellow sputum. No fever. Patient does have history of similar symptoms previously associated with COPD. No leg pain or leg on. No chest pain. - Related Data Home Medications Medication Instructions Recorded Confirmed Budesonide-Formot 160-4.5 Mcg 2 puff INHALATION RT-BID 02/22/15 12/22/19 [Symbicort 160-4.5 Mcg Inhaler] Cholecalciferol [Vitamin D3 (25 2,000 unit PO DAILY 02/22/15 12/22/19 Mcg = 1000 Iu)] Folic Acid 1 mg PO DAILY 02/22/15 12/22/19 Omeprazole [PriLOSEC] 20 mg PO AC-BRKFST 02/22/15 12/22/19 Tiotropium [place] [Spiriva] 2 cap INHALATION RT-DAILY 02/22/15 12/22/19 Albuterol Sulfate [Proventil Hfa] 2 puff INHALATION RT-Q6H PRN 03/19/17 12/22/19 Albuterol Nebulized [Ventolin 2.5 mg INHALATION RT-BID 05/02/17 12/22/19 Nebulized] Sacubitril/Valsartan [Entresto 24 1 tab PO BID 08/07/18 12/22/19 mg-26 mg Tablet] Albuterol Nebulized [Ventolin 2.5 mg INHALATION RT-QID PRN 12/22/19 12/22/19 Nebulized] Atorvastatin [Lipitor] 40 mg PO DAILY 12/22/19 HYDROcodone/APAP 10-325MG [[place] 1 tab PO QID PRN 12/22/19 12/22/19 10-325] Lidocaine 5% Patch [Lidoderm 5% 1 patch TOPICAL DAILY PRN 12/22/19 12/22/19 Patch] Spironolactone [Aldactone] 25 mg PO DAILY 12/22/19 12/22/19 Previous Rx's Medication Instructions Recorded Nitroglycerin Sl Tabs [Nitrostat] 0.4 mg SUBLINGUAL Q5M PRN #25 tab 02/25/15 Sotalol [Betapace] 80 mg PO BID #20 tab 03/21/17 Apixaban [Eliquis] 2.5 mg PO BID #60 tablet 12/25/19 Aspirin 325 mg PO DAILY #30 tab 12/25/19 Metoprolol Succinate (ER) [Toprol 12.5 mg PO HS #30 tab.er.24h 12/25/19 XL] Allergies Allergy/AdvReac Type Severity Reaction Status Date / Time amoxicillin Allergy Rash/Hives Verified 05/19/20 13:10 Penicillins Allergy Rash/Hives Verified 05/19/20 13:10 Review of Systems ROS Statement: Those systems with pertinent positive or pertinent negative responses have been documented in the HPI. ROS Other: All systems not noted in ROS Statement are negative. Constitutional: Denies: fever Eyes: Denies: eye pain ENT: Denies: ear pain Respiratory: Reports: cough, dyspnea Cardiovascular: Denies: chest pain Endocrine: Reports: fatigue Gastrointestinal: Denies: abdominal pain Genitourinary: Denies: dysuria Musculoskeletal: Denies: back pain Skin: Denies: rash Neurological: Denies: headache Past Medical History Past Medical History: Coronary Artery Disease (CAD), Cancer, Heart Failure, COPD, GERD/Reflux, Hyperlipidemia, Hypertension, Myocardial Infarction ([place]), Osteoarthritis (OA) Additional Past Medical History / Comment(s): Autoimmune disorder with hx. splenomegaly/hemolytic anemia-stable currently, History of ventricular tachycardia, 30-35% ejection fraction, SKIN CANCER, Christensen's esophagus Last Myocardial Infarction Date:: 2015 History of Any Multi-Drug Resistant Organisms: None Reported Past Surgical History: AICD, Heart Catheterization, Heart Catheterization With Stent Additional Past Surgical History / Comment(s): PT STATED HE HAS A TOTAL OF 7 STENTS, colonoscopy, sinus sx, bilateral cataract removal with lens implants, L hydrocele surgery Past Anesthesia/Blood Transfusion Reactions: No Reported Reaction Date of Last Stent Placement:: 2015 Type of Cardiac Device: AICD Device Placement Date:: 2014 [facility] Past Psychological History: No Psychological Hx Reported Smoking Status: Former smoker Past Alcohol Use History: Rare Past Drug Use History: None Reported - Past Family History Sister(s) Family Medical History: Cancer Additional Family Medical History / Comment(s): Colon CA. Father Family Medical History: Myocardial Infarction ([place]) Additional Family Medical History / Comment(s): FATHER HAD MIs. Mother Family Medical History: Cancer Additional Family Medical History / Comment(s): COLON CANCER. General Exam Limitations: no limitations General appearance: alert, in no apparent distress Head exam: Present: normocephalic Eye exam: Present: normal appearance Neck exam: Present: normal inspection Respiratory exam: Present: respiratory distress, accessory muscle use, decreased breath sounds Cardiovascular Exam: Present: regular rate, normal rhythm GI/Abdominal exam: Present: soft. Absent: tenderness Extremities exam: Present: normal inspection. Absent: pedal edema, calf tenderness Neurological exam: Present: alert Psychiatric exam: Present: normal affect, normal mood Skin exam: Present: normal color Course Vital Signs 05/19/20 05/19/20 13:04 13:47 Temperature 98.2 F Pulse Rate 63 57 L Respiratory 24 17 Rate Blood Pressure 123/52 92/52 O2 Sat by Pulse 100 98 Oximetry EKG Findings - EKG Comments: EKG Findings:: Normal sinus rhythm 61. RI 152. QRS 98. QT 476. QTc 479. Normal axis. Inferior Q waves. No acute ST change. Medical Decision Making - Medical Decision Making Patient reevaluated and improved with BiPAP. Patient updated on results and plan. [facility] physician group has been paged for admission covering for Dr. Thomas Case was discussed with Dr. karlie guillen md, who will admit. She does request d- dimer and continue Solu-Medrol. Patient has previously seen Dr. Gaitan and he will be placed on consult - Lab Data Result diagrams: 05/19/20 13:11 05/19/20 13:11 Lab Results 05/19/20 05/19/20 05/19/20 Range/Units 13:11 13:11 13:11 WBC 5.2 (3.8-10.6) k/uL RBC 5.06 (4.30-5.90) m/uL Hgb 15.4 (13.0-17.5) gm/dL Hct 43.5 (39.0-53.0) % MCV 86.0 (80.0-100.0) fL MCH 30.3 (25.0-35.0) pg MCHC 35.3 (31.0-37.0) g/dL RDW 13.9 (11.5-15.5) % Plt Count 163 (150-450) k/uL MPV 8.2 Neutrophils % 80 % Lymphocytes % 13 % Monocytes % 3 % Eosinophils % 0 % Basophils % 1 % Neutrophils # 4.2 (1.3-7.7) k/uL Lymphocytes # 0.7 L (1.0-4.8) k/uL Monocytes # 0.2 (0-1.0) k/uL Eosinophils # 0.0 (0-0.7) k/uL Basophils # 0.1 (0-0.2) k/uL Poikilocytosis Slight PT 11.0 (9.0-12.0) sec INR 1.1 (<1.2) APTT 28.9 (22.0-30.0) sec Sodium 134 L (137-145) mmol/L Potassium 4.1 (3.5-5.1) mmol/L Chloride 100 (98-107) mmol/L Carbon Dioxide 24 (22-30) mmol/L Anion Gap 10 mmol/L BUN 59 H (9-20) mg/dL Creatinine 1.68 H (0.66-1.25) mg/dL Est GFR (CKD-EPI)AfAm 46 (>60 ml/min/1.73 sqM) Est GFR (CKD-EPI)NonAf 40 (>60 ml/min/1.73 sqM) Glucose 107 H (74-99) mg/dL Plasma Lactic Acid Akbar (0.7-2.0) mmol/L Calcium 9.0 (8.4-10.2) mg/dL Magnesium 1.8 (1.6-2.3) mg/dL Total Bilirubin 1.4 H (0.2-1.3) mg/dL AST 48 (17-59) U/L ALT 37 (4-49) U/L Alkaline Phosphatase 63 (38-126) U/L Lactate Dehydrogenase 825 H (313-618) U/L C-Reactive Protein 149.1 H (<10.0) mg/L Total Protein 5.9 L (6.3-8.2) g/dL Albumin 3.3 L (3.5-5.0) g/dL 05/19/20 Range/Units 13:11 WBC (3.8-10.6) k/uL RBC (4.30-5.90) m/uL Hgb (13.0-17.5) gm/dL Hct (39.0-53.0) % MCV (80.0-100.0) fL MCH (25.0-35.0) pg MCHC (31.0-37.0) g/dL RDW (11.5-15.5) % Plt Count (150-450) k/uL MPV Neutrophils % % Lymphocytes % % Monocytes % % Eosinophils % % Basophils % % Neutrophils # (1.3-7.7) k/uL Lymphocytes # (1.0-4.8) k/uL Monocytes # (0-1.0) k/uL Eosinophils # (0-0.7) k/uL Basophils # (0-0.2) k/uL Poikilocytosis PT (9.0-12.0) sec INR (<1.2) APTT (22.0-30.0) sec Sodium (137-145) mmol/L Potassium (3.5-5.1) mmol/L Chloride (98-107) mmol/L Carbon Dioxide (22-30) mmol/L Anion Gap mmol/L BUN (9-20) mg/dL Creatinine (0.66-1.25) mg/dL Est GFR (CKD-EPI)AfAm (>60 ml/min/1.73 sqM) Est GFR (CKD-EPI)NonAf (>60 ml/min/1.73 sqM) Glucose (74-99) mg/dL Plasma Lactic Acid Akbar 1.3 (0.7-2.0) mmol/L Calcium (8.4-10.2) mg/dL Magnesium (1.6-2.3) mg/dL Total Bilirubin (0.2-1.3) mg/dL AST (17-59) U/L ALT (4-49) U/L Alkaline Phosphatase (38-126) U/L Lactate Dehydrogenase (313-618) U/L C-Reactive Protein (<10.0) mg/L Total Protein (6.3-8.2) g/dL Albumin (3.5-5.0) g/dL - Radiology Data Radiology results: image reviewed Critical Care Time Critical Care Time: Yes Total Critical Care Time: 32 Disposition Clinical Impression: COVID-19, Respiratory failure, Acute exacerbation of chronic obstructive pulmonary disease Disposition: ADMITTED IP TO THIS HOSP Condition: Serious Is patient prescribed a controlled substance at d/c from ED?: No Referrals: None,Stated [REFERRING] - 1-2 days Decision Time: 14:22
[2020-05-19 13:32] LABS: Basophils # (A) 0.1 k/uL (0-0.2); Basophils % (A) 1 %; Eosinophils % (A) 0 %; HCT 43.5 % (39.0-53.0); HGB 15.4 gm/dL (13.0-17.5); Lymphocytes # (A) 0.7 k/uL (1.0-4.8); Lymphocytes % (A) 13 %; MCH 30.3 pg (25.0-35.0); MCHC 35.3 g/dL (31.0-37.0); Mean Platelet Volume 8.2; Monocytes # (A) 0.2 k/uL (0-1.0); Monocytes % (A) 3 %; Neutrophils # (A) 4.2 k/uL (1.3-7.7); Neutrophils % (A) 80 %; Platelet Count 163 k/uL (150-450); Poikilocytosis Slight; RBC 5.06 m/uL (4.30-5.90); RDW 13.9 % (11.5-15.5); WBC 5.2 k/uL (3.8-10.6)
[2020-05-19 13:42] LABS: Albumin 3.3 g/dL (3.5-5.0); Magnesium 1.8 mg/dL (1.6-2.3); Potassium 4.1 mmol/L (3.5-5.1); Total Bilirubin 1.4 mg/dL (0.2-1.3); Total Protein 5.9 g/dL (6.3-8.2)
[2020-05-19 13:45] LABS: INR 1.1 (<1.2); Partial Thromboplastin Time 28.9 sec (22.0-30.0)
[2020-05-19 14:09] LABS: C Reactive Protein 149.1 mg/L (<10.0)
[2020-05-19] MEDS ORDERED: SODIUM CHLORIDE 0.9% 500 ML 500 ML IV STA (14:11)
[2020-05-19] MEDS ORDERED: ACETAMINOPHEN TAB 325 MG TAB PO PRN (14:22)
[2020-05-19] MEDS ORDERED: NALOXONE 0.4 MG/ML 1 ML VIAL IV PRN (14:22)
--- NOTE | 2020-05-19 14:28 | XR ---
EXAMINATION TYPE: XR chest 1V portable DATE OF EXAM: 05/19/2020 COMPARISON: Chest x-ray 12/22/2019 HISTORY: Suspected Covid 19 pneumonia TECHNIQUE: Single frontal view of the chest is obtained. FINDINGS: Patchy basilar density is present. Cardiac mediastinal silhouette is stable. There is gene rated left pectoral region, lead is present within the right ventricle. No evident pneumothorax or pl eural effusion. Interstitium appears prominently. Lucency in the upper lobes likely due to underlying emphysema. Cardiac mediastinal silhouette, pulmonary vascular and seb are stable. There are overlyi ng cardiac leads. IMPRESSION: There may be some basilar atelectasis, interstitial changes, correlate for possible pneu monia
[2020-05-19] MEDS ORDERED: ZINC SULFATE 220 MG CAP PO SCH (14:30)
[2020-05-19] MEDS ORDERED: CHOLECALCIFEROL 1,000 UNIT TAB PO SCH ×2 (14:30→21:00)
[2020-05-19] MEDS: SODIUM CHLORIDE 0.9% 1,000 ML IV SCH (16:38)
[2020-05-19] MEDS: methylPREDNISolone SOD SUCCI 125 MG/2 ML VIAL IV SCH (17:31)
[2020-05-19] MEDS ORDERED: HYDROcodone/APAP 5-325MG 1 EACH TAB PO PRN (18:02)
[2020-05-19] MEDS ORDERED: MELATONIN 3 MG TABLET PO PRN (18:02)
[2020-05-19] MEDS ORDERED: NITROGLYCERIN SL TABS 0.4 MG TAB SUBLINGUAL PRN (18:07)
[2020-05-19] MEDS ORDERED: HYDROcodone/APAP 10-325MG 1 EACH TAB PO PRN (18:07)
[2020-05-19] MEDS ORDERED: ALBUTEROL HFA INHALER INHALATION PRN (18:07)
[2020-05-19] MEDS ORDERED: MELATONIN 5 MG TABLET PO PRN (18:13)
--- NOTE | 2020-05-19 19:39 | P.HPIM ---
History of Present Illness H&P Date: 05/19/20 Chief Complaint: shortness of breath Patient is a 74-year-old male with a history of systolic cardiomyopathy with ejection fraction 40%, permanent A. fib anticoagulated with Eliquis, COPD, hypertension, dyslipidemia, and multiple other comorbid conditions who presented to the ER with complaints of shortness of breath. He had been diagnosed with COVID 19 on 05/05/2020. He completed a dose of steroids and antibiotics from [facility] that he felt lasted about 7 days. He reports that he felt better initially but 2 days ago began feeling worse. In the emergency department he underwent an extensive evaluation. On arrival he was started on BiPAP secondary to increased work of breathing. He was 2. On visual laboratory analysis showed sodium of 134, BUN 59, creatinine 1.68 (appears baseline is between 1.4-1.8), total bilirubin 1.4, LDH 825, CRP 149. Initial chest x-ray showed interstitial infiltrates. EKG without ischemic changes. He was started on Solu-Medrol, b ronchodilators. Arrangements were made for admission. Patient seen and examined at bedside. He reports that he has had worsening shortness of breath over the last 2 days. It is worse with exertion and better with rest. He denies any orthopnea or lower STEMI edema. He has a nonproductive cough. He is not wheezing but just short of breath. He denies any nausea, vomiting, diarrhea. He denies any nasal congestion or postnasal drip. He has had chills at home but no documented fever. He lost his taste with Covid and has not regained it yet. He has chronic upper extremity weakness secondary to an autoimmune disease that he had 15 years ago. This is unchanged. He is feeling tired and rundown. Review of Systems Pertinent positives and negatives as discussed in HPI, a complete review of systems was performed and all other systems are negative. Past Medical History Past Medical History: Atrial Fibrillation, Coronary Artery Disease (CAD), Cancer, Heart Failure, COPD, CVA/TIA, GERD/Reflux, Hyperlipidemia, Hypertension, Myocardial Infarction ([place]), Osteoarthritis (OA) Additional Past Medical History / Comment(s): Autoimmune disorder with hx. 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 vision loss, covid pnemonia May 05, 2020 Last Myocardial Infarction Date:: 2015 History of Any Multi-Drug Resistant Organisms: None Reported Past Surgical History: AICD, Heart Catheterization, Heart Catheterization With Stent Additional Past Surgical History / Comment(s): PT STATED HE HAS A TOTAL OF 7 STENTS, colonoscopy, sinus sx, bilateral cataract removal with lens implants, L hydrocele surgery Past Anesthesia/Blood Transfusion Reactions: No Reported Reaction Date of Last Stent Placement:: 2015 Type of Cardiac Device: Permanent Pacemaker, AICD Device Placement Date:: 2014 [facility] Past Psychological History: No Psychological Hx Reported Additional Psychological History / Comment(s): EXPOSED TO [employer] Smoking Status: Former smoker Past Alcohol Use History: Rare Additional Past Alcohol Use History / Comment(s): STARTED SMOKING AGE 21 SMOKED 1 PPD QUIT IN 1996 Past Drug Use History: None Reported - Past Family History Sister(s) Family Medical History: Cancer Additional Family Medical History / Comment(s): Colon CA. Father Family Medical History: Myocardial Infarction ([place]) Additional Family Medical History / Comment(s): FATHER HAD MIs. Mother Family Medical History: Cancer Additional Family Medical History / Comment(s): COLON CANCER. Medications and Allergies Home Medications Medication Instructions Recorded Confirmed Type Budesonide-Formot 160-4.5 Mcg 2 puff INHALATION RT-BID 02/22/15 05/19/20 History [Symbicort 160-4.5 Mcg Inhaler] Cholecalciferol [Vitamin D3 (25 1,000 unit PO BID 02/22/15 05/19/20 History Mcg = 1000 Iu)] Folic Acid 1 mg PO DAILY 02/22/15 05/19/20 History Omeprazole [PriLOSEC] 20 mg PO AC-BRKFST 02/22/15 05/19/20 History Tiotropium [place] [Spiriva] 1 cap INHALATION RT-DAILY 02/22/15 05/19/20 History Nitroglycerin Sl Tabs [Nitrostat] 0.4 mg SUBLINGUAL Q5M PRN #25 tab 02/25/15 05/19/20 Rx Albuterol Sulfate [Proventil Hfa] 2 puff INHALATION RT-Q6H PRN 03/19/17 05/19/20 History Sotalol [Betapace] 80 mg PO BID #20 tab 03/21/17 05/19/20 Rx Albuterol Nebulized [Ventolin 2.5 mg INHALATION RT-BID 05/02/17 05/19/20 History Nebulized] Sacubitril/Valsartan [Entresto 24 1 tab PO BID 08/07/18 05/19/20 History mg-26 mg Tablet] Albuterol Nebulized [Ventolin 2.5 mg INHALATION RT-QID PRN 12/22/19 05/19/20 History Nebulized] Atorvastatin [Lipitor] 80 mg PO HS 12/22/19 05/19/20 History HYDROcodone/APAP 10-325MG [[place] 1 tab PO QID PRN 12/22/19 05/19/20 History 10-325] Spironolactone [Aldactone] 25 mg PO DAILY 12/22/19 05/19/20 History Apixaban [Eliquis] 5 mg PO BID 05/19/20 05/19/20 History Aspirin 81 mg PO DAILY 05/19/20 05/19/20 History Metoprolol Succinate (ER) [Toprol 12.5 mg PO HS 05/19/20 05/19/20 History Xl] Allergies Allergy/AdvReac Type Severity Reaction Status Date / Time amoxicillin Allergy Rash/Hives Verified 05/19/20 14:32 Penicillins Allergy Rash/Hives Verified 05/19/20 14:32 Physical Exam Osteopathic Statement: *. No significant issues noted on an osteopathic structural exam other than those noted in the History and Physical/Consult. Vitals: Vital Signs Temp Pulse Pulse Resp BP BP Pulse Ox 05/19/20 16:00 97.6 F 56 L 22 104/49 99 05/19/20 15:15 60 20 96/65 100 05/19/20 13:47 57 L 17 92/52 98 05/19/20 13:04 98.2 F 63 26 H 123/52 100 Intake and Output 05/19/20 05/19/20 05/19/20 06:59 14:59 22:59 Intake Total 130 Balance 130 Intake: Intake, IV Titration 130 Amount Sodium Chloride 0.9% 1, 130 000 ml @ 130 mls/hr IV . Q7H42M [facility] Rx#:[id number] Other: # Voids 0 # Bowel Movements 0 Weight 66.224 kg 66.224 kg General: ill appearing, mild , appears at stated age Derm: warm, dry Head: atraumatic, normocephalic, symmetric Eyes: EOMI, no lid lag, anicteric sclera, pupils equal round reactive to light ENT: Nose and ears atraumatic, no thrush, no pharyngeal erythema Neck: No thyromegaly, no cervical lymphadenopathy, trachea midline, supple Mouth: no lip lesion, mucus membranes moist Cardiovascular: S1S2 reg, no murmur, positive posterior tibial pulse bilateral, no edema, capillary refill less than 2 seconds Lungs: Decreased bs bilateral, no ronchi, no rales, no wheeze, no accessory muscle use Abdominal: soft, nontender to palpation, no guarding, no appreciable organomegaly, normal bowel sounds Ext: no gross muscle atrophy, muscle strength muscle strength 5 out of 5lower extremities, 5/5 in elbow and wrist/hand in bilateral upper extremities, and 2/5 in b/l upper extremities at shoulder, no contractures Neuro: CN II-XI grossly intact, light touch intact all 4 extremities, finger to nose within normal limits, Psych: Alert, oriented, appropriate affect Results CBC & Chem 7: 05/19/20 13:11 05/19/20 13:11 Labs: Abnormal Lab Results - Last 24 Hours (Table) 05/19/20 05/19/20 Range/Units 13:11 13:11 Lymphocytes # 0.7 L (1.0-4.8) k/uL Sodium 134 L (137-145) mmol/L BUN 59 H (9-20) mg/dL Creatinine 1.68 H (0.66-1.25) mg/dL Glucose 107 H (74-99) mg/dL Total Bilirubin 1.4 H (0.2-1.3) mg/dL Lactate Dehydrogenase 825 H (313-618) U/L C-Reactive Protein 149.1 H (<10.0) mg/L Total Protein 5.9 L (6.3-8.2) g/dL Albumin 3.3 L (3.5-5.0) g/dL Chest x-ray: report reviewed, image reviewed Thrombosis Risk Factor Assmnt - DVT/VTE Prophylaxis DVT/VTE Prophylaxis: Pharmacologic Prophylaxis ordered - Choose All That Apply Each Factor Represents 1 point: Medical pt on bed rest Each Risk Factor Represents 2 Points: Age 61-74 years Thrombosis Risk Factor Assessment Total Risk Factor Score: 3 Thrombosis Risk Factor Assessment Level: Moderate Risk Assessment and Plan Assessment: AE COPD with recent covid infection - possible RLL infiltrate - rocephin and doxycyline - steroids, BDs - repeat CXR in AM - Consult pulmonary - check influenza - check procalcitonin if normal stop abx Acute Hypoxic Respiratory Failure - Check ABG due to shaking - On Bipbp - Wean O2 as able Chronic systolic CHF with EF 40-45% - Entresto, metoprolol - Spironolactone Chronic A fib - Sotalol - ASA - Eliquis GINO vs CKD - due to severity of heart failure will keep enterestro for now - IVF - Follow Cr - Avoid additional nephrotoxic agents - Suspect Cr near baseline appears 1.3-1.8 Chronic: HTN HLD GERD CAD with myocardial infarction CVA with peripheral neuropathy The patient is admitted with an anticipated greater than 2 midnight stay for evaluation of AE COPD. Surrogate decision-maker: CODE STATUS:Full DVT prophylaxis: ELiquis Discussed with: patient, nursing, ed physician Anticipated discharge date: 3-[address]: home A total of 65 minutes was spent on the care of this complex patient more than 50% of the time was spent in counseling and care coordination.
[2020-05-19] MEDS ORDERED: ALBUTEROL HFA INHALER INHALATION SCH (20:00)
[2020-05-19] MEDS: SOTALOL 80 MG TAB PO SCH (20:11)
[2020-05-19] MEDS: SACUBITRIL/VALSARTAN 24 MG-26 MG TABLET PO SCH (20:11)
[2020-05-19] MEDS: APIXABAN 5 MG TAB PO SCH (20:12)
[2020-05-19] MEDS: METOPROLOL SUCCINATE (ER) 25 MG TAB.ER.24H PO SCH (20:12)
[2020-05-19] MEDS: ATORVASTATIN 80 MG TAB PO SCH (20:12)
[2020-05-19] MEDS: DOXYCYCLINE 100 MG CAP PO SCH (20:12)
[2020-05-19] MEDS ORDERED: ASCORBIC ACID 500 MG TAB PO SCH (21:00)
[2020-05-19] MEDS ORDERED: APIXABAN 2.5 MG TABLET PO SCH (21:00)
[2020-05-19 21:07] LABS: Ferritin 785.5 ng/mL (22.0-322.0)
[2020-05-19 21:35] LABS: ABG Base Excess -6.1 mmol/L; ABG HCO3 19 mmol/L (21-25); ABG Oxygen Saturation 99.5 % (94-97); ABG PCO2 33 mmHg (35-45); ABG PH 7.37 (7.35-7.45); ABG PO2 166 mmHg (83-108); ABG TCO2 20 mmol/L (19-24); Allen Test Performed? Yes
[2020-05-19] MEDS: SYMBICORT 160-4.5 MCG INHALER INHALATION SCH ×2 (21:44→22:07)
[2020-05-19] MEDS: ALBUTEROL HFA INHALER INHALATION PRN ×2 (21:58→22:08)
[2020-05-19] MEDS: TIOTROPIUM 2.5 MCG INHALER INHALATION SCH (22:07)
[2020-05-20] MEDS: methylPREDNISolone SOD SUCCI 125 MG/2 ML VIAL IV SCH ×5 (00:08→23:14)
[2020-05-20] MEDS: SODIUM CHLORIDE 0.9% 1,000 ML IV SCH ×2 (03:49→06:27)
[2020-05-20] MEDS: PANTOPRAZOLE 40 MG TABLET PO SCH (06:27)
--- NOTE | 2020-05-20 07:16 | XR ---
EXAMINATION TYPE: XR chest 1V portable DATE OF EXAM: 05/20/2020 CLINICAL HISTORY: Difficulty breathing progress study. Suspected covid 19 pneumonia. TECHNIQUE: Single AP portable upright view of the chest is obtained. COMPARISON: Chest x-ray from one day earlier and December 22, 2019. FINDINGS: Cardiac silhouette size stable and within normal limits with single lead pacemaker/defibri llator and atherosclerotic aorta are redemonstrated. Persistent high riding heads consistent with chr onic rotator cuff tears. Underlying emphysematous change with persistent increased opacity in the per iphery of the left lung base. Some improved aeration in the right lung base. New tiny left pleural ef fusion. No pneumothorax seen bilaterally. IMPRESSION: Chronic emphysematous change with left greater than right bibasilar acute infiltrates gre atest in the periphery of the left lung base redemonstrated. Tiny left pleural effusion noted. Some i mproved aeration right lung base felt present.
[2020-05-20 07:59] LABS: Basophils % (A) 1 %; Eosinophils % (A) 0 %; HCT 41.7 % (39.0-53.0); HGB 14.1 gm/dL (13.0-17.5); Lymphocytes # (A) 0.4 k/uL (1.0-4.8); Lymphocytes % (A) 21 %; MCH 29.7 pg (25.0-35.0); MCHC 33.8 g/dL (31.0-37.0); MCV 87.7 fL (80.0-100.0); Mean Platelet Volume 7.6; Monocytes # (A) 0.1 k/uL (0-1.0); Monocytes % (A) 4 %; Neutrophils # (A) 1.2 k/uL (1.3-7.7); Neutrophils % (A) 71 %; Platelet Count 148 k/uL (150-450); Poikilocytosis Slight; RBC 4.75 m/uL (4.30-5.90); WBC 1.8 k/uL (3.8-10.6)
[2020-05-20 08:22] LABS: Albumin 2.9 g/dL (3.5-5.0); Calcium 8.6 mg/dL (8.4-10.2); Potassium 4.1 mmol/L (3.5-5.1); Total Bilirubin 0.9 mg/dL (0.2-1.3); Total Protein 5.3 g/dL (6.3-8.2)
[2020-05-20 08:53] LABS: C Reactive Protein 87.8 mg/L (<10.0)
[2020-05-20] MEDS ORDERED: CHOLECALCIFEROL 1,000 UNIT TAB PO SCH (09:00)
[2020-05-20] MEDS: SPIRONOLACTONE 25 MG TAB PO SCH (09:13)
[2020-05-20] MEDS: FAMOTIDINE 20 MG TAB PO SCH (09:13)
[2020-05-20] MEDS: APIXABAN 5 MG TAB PO SCH ×2 (09:13→20:45)
[2020-05-20] MEDS: ASPIRIN 81 MG PO SCH (09:13)
[2020-05-20] MEDS: FOLIC ACID 1 MG TAB PO SCH (09:13)
[2020-05-20] MEDS: ASCORBIC ACID 500 MG TAB PO SCH (09:13)
[2020-05-20] MEDS: ZINC SULFATE 220 MG CAP PO SCH (09:13)
[2020-05-20] MEDS: SOTALOL 80 MG TAB PO SCH ×2 (09:14→20:45)
[2020-05-20] MEDS: SACUBITRIL/VALSARTAN 24 MG-26 MG TABLET PO SCH ×2 (09:14→20:45)
[2020-05-20] MEDS: DOXYCYCLINE 100 MG CAP PO SCH ×2 (09:15→20:45)
[2020-05-20] MEDS: ALBUTEROL HFA INHALER INHALATION PRN (09:20)
[2020-05-20] MEDS: SYMBICORT 160-4.5 MCG INHALER INHALATION SCH ×2 (09:20→20:21)
[2020-05-20] MEDS: TIOTROPIUM 2.5 MCG INHALER INHALATION SCH (09:20)
[2020-05-20 10:57] LABS: Appearance,Urine Clear (Clear); Bilirubin,Urine Negative (Negative); Blood,Urine Negative (Negative); Color,Urine Yellow; Glucose,Urine (UA) Negative (Negative); Ketones,Urine Trace (Negative); Leukocyte Esterase,Urine Negative (Negative); Nitrite,Urine Negative (Negative); PH, Urine 5.5 (5.0-8.0); Protein,Urine Trace (Negative); Urobilinogen,Urine <2.0 mg/dL (<2.0)
[2020-05-20] MEDS: ALBUTEROL HFA INHALER INHALATION SCH ×3 (12:37→20:21)
--- NOTE | 2020-05-20 13:07 | CONS ---
CONSULTATION PULMONARY/CRITICAL CARE CONSULTATION NOTE: DATE OF CONSULTATION: May 20, 2020 HISTORY OF PRESENT ILLNESS: This is a 74-year-old gentleman who sees Dr. Charles as a primary. He presented to the emergency room via EMS on May 19 at 12:56 complaining of increasing shortness of breath. He has been having increasing symptoms for a number of days now. He did test positive for COVID-19 infection back on May 05. He went to an outside clinic I believe [facility]. At that time, his symptoms were not too bad. He was apparently given a Medrol Dosepak and maybe a Z-Yo at that time. The patient was having shortness of breath, cough, chest congestion and some yellow phlegm production at that time. He seemed to initially do a little bit better but then over the last couple days have gotten worse. Because of worsening shortness of breath and just feeling fatigued and wiped out so to speak, he decided to come in to be evaluated. The patient does have a prior history of COPD. He used to see both my partners, including both Dr. Gaitan and Dr. Lara. He has not seen either of them for some time. He was diagnosed having COPD from previous heavy tobacco use. He does not use oxygen at home on a regular basis but does have a nebulizer machine. He also uses Symbicort. CURRENT HOME MEDICATIONS: Include Symbicort, vitamin D3, folic acid, Prilosec, Spiriva, albuterol inhaler, and albuterol updrafts. In addition, he is on Entresto, Lipitor, [place], Lidoderm patch, Aldactone, nitroglycerin tablets, Betapace, Eliquis, aspirin and metoprolol. ALLERGIES: Include AMOXICILLIN AND PENICILLIN. PAST MEDICAL HISTORY: CAD, heart failure, COPD, GERD, hyperlipidemia, hypertension, previous myocardial infarction, DJD, autoimmune hemolytic anemia, splenomegaly, ventricular tachycardia, cardiomyopathy with ejection fraction 30-35 percent, skin cancer, and Christensen's esophagus. SURGICAL HISTORY: Includes AICD placement, heart catheterization with stent, heart catheterization with a total of 7 stents, colonoscopy, sinus surgery, bilateral cataract surgery with lens implants, and left hydrocele repair. SOCIAL HISTORY: Positive for previous heavy tobacco use. Does not smoke currently. He drinks alcohol rarely. Does not use any illicit drugs. FAMILY HISTORY: Positive for sister with colon cancer, father with heart disease and myocardial infarction and mother with colon cancer. REVIEW OF SYSTEMS: CONSTITUTIONAL weakness and fatigue. NEUROLOGIC negative. HEENT negative. CARDIOVASCULAR negative. PULMONARY: Shortness of breath. Chest congestion, cough. GI negative. negative. RHEUMATOLOGIC negative. IMMUNOLOGIC negative. ENDOCRINOLOGIC negative. DERMATOLOGIC negative. PHYSICAL EXAMINATION: VITAL SIGNS: Current vital signs include: Temperature 97.5. Heart rate 70, respiratory rate 16, blood pressure 100/46, mean 64 and saturations are 92% on 10 L high flow. The patient has also been using BiPAP therapy. His BiPAP settings were 12/6 and 80% when he was using the BiPAP in place of a high-flow nasal cannula. HEENT: Examination is grossly unremarkable. Nasal cannula noted. NECK: Supple. Full range of motion. No adenopathy. Neck veins are flat. CARDIOVASCULAR: Examination reveals heart rate in the mid 70s. Heart sounds were distant. S1, S2 normal. LUNGS: Reveal some diffuse coarse rhonchi. No wheezes. No crackles. Breath sounds equal. ABDOMEN: Soft. Bowel sounds are heard. EXTREMITIES are intact. No edema. SKIN: Without rash. NEUROLOGIC: Examination is nonfocal. LABS: Reviewed. White count 1.8, hemoglobin 14.1, hematocrit 41.7, platelet count 148,000. The patient is lymphopenic. PT/INR, PTT normal. D-dimer was normal. Blood gases show pO2 of 166, pCO2 of 33 and a pH 7.37. Blood gases consistent with a mixed acid- base disturbance including combined respiratory alkalosis/metabolic acidosis. Sodium 135, potassium 4.1. Chloride 104, CO2 25, anion gap is 6. BUN and creatinine were 56 and 1.20. LDH 620. C-reactive protein 88. Procalcitonin 0.38. Urine shows trace protein and trace ketones. Influenza studies were negative. A Covid test appears not to have been done. Microbiology is negative. Chest x-ray shows some emphysematous changes, with left greater than right bibasilar infiltrates. Medications are reviewed. The patient is on Tylenol, albuterol inhaler, Eliquis, ascorbic acid, aspirin, Lipitor, Symbicort, Rocephin, doxycycline, famotidine, folic acid, [place], melatonin, Solu-Medrol, metoprolol, Narcan, nitroglycerin, Protonix, Entresto, sotalol, Aldactone, Spiriva, and zinc. ASSESSMENT: 1. COVID-19 pneumonitis with acute hypoxemic respiratory failure. 2. History of underlying chronic obstructive pulmonary disease from previous tobacco use. 3. History of coronary artery disease, with previous catheterization and 7 stents. 4. Ischemic cardiomyopathy with ejection fraction of 30-35 percent. 5. Gastroesophageal reflux disease. 6. Essential hypertension. 7. Hyperlipidemia. 8. Prior acute myocardial infarction. 9. Degenerative joint disease. 10.Autoimmune hemolytic anemia. 11.Splenomegaly. 12.History of ventricular tachycardia. 13.Skin cancer. 14.Christensen's esophagus. 15.Status post AICD placement. PLAN: The patient's prognosis is guarded. He is on appropriate medications. The patient tested positive back on May 05. He is beyond Remdesivir window. The other medications are appropriate. Given his age and multitude of other medical problems, the patient has a high risk for deterioration. We will continue to follow. MMODL / IJN: [id number] / BETY
--- NOTE | 2020-05-20 15:23 | P.PN ---
Subjective Progress Note Date: 05/20/20 (jayshree charting seen at 0945) Principal diagnosis: shortness of breath Patient is a 74-year-old male with a history of systolic cardiomyopathy with ejection fraction 40%, permanent A. fib anticoagulated with Eliquis, COPD, hypertension, dyslipidemia, and multiple other comorbid conditions who presented to the ER with complaints of shortness of breath. He had been diagnosed with COVID 19 on 05/05/2020. He completed a dose of steroids and antibiotics from [facility] that he felt lasted about 7 days. He reports that he felt better initially but 2 days ago began feeling worse. In the emergency department he underwent an extensive evaluation. On arrival he was started on BiPAP secondary to increased work of breathing. He was 2. On initial laboratory analysis showed sodium of 134, BUN 59, creatinine 1.68 (appears baseline is between 1.4- 1.8), total bilirubin 1.4, LDH 825, CRP 149. Initial chest x-ray showed interstitial infiltrates. EKG without ischemic changes. He was started on Solu-Medrol, bronchodilators. Arrangements were made for admission. Pulmonary was consulted. Initially he was started on antibiotics for prophylaxis and hematocrit 0.38 and antibiotics were discontinued. Influenza A and B were negative. He was able to be transitioned from BiPAP hyponasal cannula on the morning of 05/20/20. Patient seen and examined at bedside. He reports his breathing is somewhat better than yesterday. No nausea, no vomiting, no diarrhea. General: non toxic, no distress, appears at stated age Derm: warm, dry Head: atraumatic, normocephalic, symmetric Eyes: EOMI, no lid lag, anicteric sclera Mouth: no lip lesion, mucus membranes moist Cardiovascular: S1S2 reg, no murmur, positive posterior tibial pulse bilateral, Lungs: CTA bilateral, no rhonchi, no rales , no accessory muscle use Abdominal: soft, nontender to palpation, no guarding, no appreciable organomegaly Ext: no gross muscle atrophy, no edema, no contractures Neuro: CN II-XI grossly intact, no focal neuro deficits Psych: Alert, oriented, appropriate affect AE COPD with COVID 19 pneumonitis - Abx stopped as procalcitonin negative and bacteral PNA ruled out - steroids, BDs - Consult pulmonary recs appreciated - Influenza A/B negative - Out of the window for Remdesivir - Vit C, Vit D, Zinc Acute Hypoxic Respiratory Failure - Wean O2 as able Chronic systolic CHF with EF 40-45% - Entresto, metoprolol - Spironolactone Chronic A fib - Sotalol - ASA - Eliquis GINO, resolved Chronic: HTN HLD GERD CAD with myocardial infarction CVA with peripheral neuropathy DVT prophylaxis: Eliquis Discussed with: patient, nursing Anticipated discharge date: 3-[address]: home A total of 35 minutes was spent on the care of this complex patient more than 5 0% of the time was spent in counseling and care coordination. Objective - Vital Signs Vital signs: Vital Signs Temp 97.4 F L 05/20/20 12:00 Pulse 59 L 05/20/20 12:00 Resp 16 05/20/20 12:00 BP 98/45 05/20/20 12:00 Pulse Ox 94 L 05/20/20 12:00 Intake & Output 05/19/20 05/20/20 05/20/20 18:59 06:59 18:59 Intake Total 130 410 Output Total 800 Balance 130 -390 Weight 66.224 kg 65.5 kg Intake: IV 50 cefTRIAXone 1 gm In 50 Sodium Chloride 0.9% 50 ml @ 100 mls/hr IVPB Q24HR LYNDA Rx#:[id number] Intake, IV Titration 130 Amount Sodium Chloride 0.9% 1, 130 000 ml @ 130 mls/hr IV . Q7H42M LYNDA Rx#:[id number] Oral 0 360 Output: Urine 350 Straight 350 Post Void Residual 450 Other: Voiding Method Urinal Urinal # Voids 0 # Bowel Movements 0 - Labs CBC & Chem 7: 05/20/20 07:23 05/20/20 07:23 Labs: Abnormal Lab Results - Last 24 Hours (Table) 05/19/20 05/19/20 05/19/20 Range/Units 13:11 13:11 21:23 WBC (3.8-10.6) k/uL Plt Count (150-450) k/uL Neutrophils # (1.3-7.7) k/uL Lymphocytes # (1.0-4.8) k/uL ABG pCO2 33 L (35-45) mmHg ABG pO2 166 H (83-108) mmHg ABG HCO3 19 L (21-25) mmol/L ABG O2 Saturation 99.5 H (94-97) % Sodium (137-145) mmol/L BUN (9-20) mg/dL Glucose (74-99) mg/dL Ferritin 785.5 H (22.0-322.0) ng/mL Lactate Dehydrogenase (313-618) U/L C-Reactive Protein (<10.0) mg/L Total Protein (6.3-8.2) g/dL Albumin (3.5-5.0) g/dL Procalcitonin 0.38 H (0.02-0.09) ng/mL Urine Protein (Negative) Urine Ketones (Negative) 05/20/20 05/20/20 05/20/20 Range/Units 07:23 07:23 10:40 WBC 1.8 L (3.8-10.6) k/uL Plt Count 148 L (150-450) k/uL Neutrophils # 1.2 L (1.3-7.7) k/uL Lymphocytes # 0.4 L (1.0-4.8) k/uL ABG pCO2 (35-45) mmHg ABG pO2 (83-108) mmHg ABG HCO3 (21-25) mmol/L ABG O2 Saturation (94-97) % Sodium 135 L (137-145) mmol/L BUN 56 H (9-20) mg/dL Glucose 170 H (74-99) mg/dL Ferritin (22.0-322.0) ng/mL Lactate Dehydrogenase 620 H (313-618) U/L C-Reactive Protein 87.8 H (<10.0) mg/L Total Protein 5.3 L (6.3-8.2) g/dL Albumin 2.9 L (3.5-5.0) g/dL Procalcitonin (0.02-0.09) ng/mL Urine Protein Trace H (Negative) Urine Ketones Trace H (Negative)
[2020-05-20 17:42] LABS: Ferritin 777.4 ng/mL (22.0-322.0)
[2020-05-20] MEDS: METOPROLOL SUCCINATE (ER) 25 MG TAB.ER.24H PO SCH (20:45)
[2020-05-20] MEDS: ATORVASTATIN 80 MG TAB PO SCH (20:45)
[2020-05-21] MEDS: methylPREDNISolone SOD SUCCI 125 MG/2 ML VIAL IV SCH ×4 (06:32→23:24)
[2020-05-21] MEDS: PANTOPRAZOLE 40 MG TABLET PO SCH (06:32)
[2020-05-21 07:14] LABS: Basophils % (A) 0 %; Eosinophils % (A) 0 %; HCT 42.6 % (39.0-53.0); HGB 14.9 gm/dL (13.0-17.5); Lymphocytes # (A) 0.4 k/uL (1.0-4.8); Lymphocytes % (A) 5 %; MCH 30.6 pg (25.0-35.0); MCHC 35.1 g/dL (31.0-37.0); MCV 87.3 fL (80.0-100.0); Mean Platelet Volume 8.2; Monocytes # (A) 0.2 k/uL (0-1.0); Monocytes % (A) 3 %; Neutrophils # (A) 6.3 k/uL (1.3-7.7); Neutrophils % (A) 90 %; Platelet Count 190 k/uL (150-450); Poikilocytosis Slight; RBC 4.88 m/uL (4.30-5.90); RDW 13.9 % (11.5-15.5)
[2020-05-21 07:26] LABS: Albumin 2.9 g/dL (3.5-5.0); Calcium 8.9 mg/dL (8.4-10.2); Potassium 4.4 mmol/L (3.5-5.1); Total Bilirubin 0.9 mg/dL (0.2-1.3); Total Protein 5.4 g/dL (6.3-8.2)
[2020-05-21] MEDS: ALBUTEROL HFA INHALER INHALATION SCH ×4 (08:03→20:35)
[2020-05-21] MEDS: SYMBICORT 160-4.5 MCG INHALER INHALATION SCH (08:03)
[2020-05-21] MEDS: TIOTROPIUM 2.5 MCG INHALER INHALATION SCH (08:03)
[2020-05-21] MEDS: FAMOTIDINE 20 MG TAB PO SCH (08:37)
[2020-05-21] MEDS: ASCORBIC ACID 500 MG TAB PO SCH (08:37)
[2020-05-21] MEDS: ASPIRIN 81 MG PO SCH (08:37)
[2020-05-21] MEDS: APIXABAN 5 MG TAB PO SCH ×2 (08:37→21:08)
[2020-05-21] MEDS: SPIRONOLACTONE 25 MG TAB PO SCH (08:38)
[2020-05-21] MEDS: DOXYCYCLINE 100 MG CAP PO SCH ×2 (08:38→21:08)
[2020-05-21] MEDS: FOLIC ACID 1 MG TAB PO SCH (08:38)
[2020-05-21] MEDS: CHOLECALCIFEROL 1,000 UNIT TAB PO SCH (08:38)
[2020-05-21] MEDS: SOTALOL 80 MG TAB PO SCH ×2 (08:38→21:08)
[2020-05-21] MEDS: SACUBITRIL/VALSARTAN 24 MG-26 MG TABLET PO SCH ×2 (08:38→21:08)
[2020-05-21] MEDS: ZINC SULFATE 220 MG CAP PO SCH (08:38)
--- NOTE | 2020-05-21 10:52 | P.CRDCN ---
History of Present Illness Consult date: 05/21/20 Chief complaint: Increasing shortness of breath History of present illness: This is a very pleasant 74-year-old gentleman who sees Dr. Farmer in the office on regular basis with a past medical history significant for coronary artery disease and prior multiple stenting of the RCA, ischemic cardiomyopathy with known ejection fraction between 40-45%, status post AICD, history of V. tach with prior EP study with possible VT ablation at that point as well, as well as multiple comorbid conditions who was admitted to the hospital with increasing shortness of breath and he was diagnosed with COVID-19 in pneumonia. We consulted to see the patient mainly because of abnormal ECG. The patient clinically did not have any symptoms of chest pain or chest discomfort but he was experiencing increasing into shortness of breath. Which did not get better on antibiotic was prescribed by an urgent care. No dizziness or lightheadedness and no feeling of heart racing or fluttering or syncope. His EKG today showed sinus rhythm with a prolongation in the QT interval from below for 18-514 ms. The patient is on sotalol. The dose of sotalol was reduced into half. He was receiving 80 mg by mouth twice a day and that was decreased to 40 mg by mouth twice a day. The chest x-ray showed bilateral infiltrate. The rest of his blood work overall came in to be unremarkable. His electrolytes are within normal limits sprayed his kidney function is within normal limits as well. He stated that the shortness of breath has improved overall. Past Medical History Past Medical History: Atrial Fibrillation, Coronary Artery Disease (CAD), Cancer, Heart Failure, COPD, CVA/TIA, GERD/Reflux, Hyperlipidemia, Hypertension, Myocardial Infarction ([place]), Osteoarthritis (OA) Additional Past Medical History / Comment(s): Autoimmune disorder with hx. 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 vision loss, covid pnemonia May 05, 2020 Last Myocardial Infarction Date:: 2015 History of Any Multi-Drug Resistant Organisms: None Reported Past Surgical History: AICD, Heart Catheterization, Heart Catheterization With Stent Additional Past Surgical History / Comment(s): PT STATED HE HAS A TOTAL OF 7 STENTS, colonoscopy, sinus sx, bilateral cataract removal with lens implants, L hydrocele surgery Past Anesthesia/Blood Transfusion Reactions: No Reported Reaction Date of Last Stent Placement:: 2015 Type of Cardiac Device: Permanent Pacemaker, AICD Device Placement Date:: 2014 SimulScribe Past Psychological History: No Psychological Hx Reported Additional Psychological History / Comment(s): EXPOSED TO [employer] Smoking Status: Former smoker Past Alcohol Use History: Rare Additional Past Alcohol Use History / Comment(s): STARTED SMOKING AGE 21 SMOKED 1 PPD QUIT IN 1996 Past Drug Use History: None Reported - Past Family History Sister(s) Family Medical History: Cancer Additional Family Medical History / Comment(s): Colon CA. Father Family Medical History: Myocardial Infarction ([place]) Additional Family Medical History / Comment(s): FATHER HAD MIs. Mother Family Medical History: Cancer Additional Family Medical History / Comment(s): COLON CANCER. Medications and Allergies Home Medications Medication Instructions Recorded Confirmed Type Budesonide-Formot 160-4.5 Mcg 2 puff INHALATION RT-BID 02/22/15 05/19/20 History [Symbicort 160-4.5 Mcg Inhaler] Cholecalciferol [Vitamin D3 (25 1,000 unit PO BID 02/22/15 05/19/20 History Mcg = 1000 Iu)] Folic Acid 1 mg PO DAILY 02/22/15 05/19/20 History Omeprazole [PriLOSEC] 20 mg PO AC-BRKFST 02/22/15 05/19/20 History Tiotropium [place] [Spiriva] 1 cap INHALATION RT-DAILY 02/22/15 05/19/20 History Nitroglycerin Sl Tabs [Nitrostat] 0.4 mg SUBLINGUAL Q5M PRN #25 tab 02/25/15 Rx Albuterol Sulfate [Proventil Hfa] 2 puff INHALATION RT-Q6H PRN 03/19/17 05/19/20 History Sotalol [Betapace] 80 mg PO BID #20 tab 03/21/17 05/19/20 Rx Albuterol Nebulized [Ventolin 2.5 mg INHALATION RT-BID 05/02/17 05/19/20 History Nebulized] Sacubitril/Valsartan [Entresto 24 1 tab PO BID 08/07/18 05/19/20 History mg-26 mg Tablet] Albuterol Nebulized [Ventolin 2.5 mg INHALATION RT-QID PRN 12/22/19 05/19/20 History Nebulized] Atorvastatin [Lipitor] 80 mg PO HS 12/22/19 05/19/20 History HYDROcodone/APAP 10-325MG [[place] 1 tab PO QID PRN 12/22/19 05/19/20 History 10-325] Spironolactone [Aldactone] 25 mg PO DAILY 12/22/19 05/19/20 History Apixaban [Eliquis] 5 mg PO BID 05/19/20 05/19/20 History Aspirin 81 mg PO DAILY 05/19/20 05/19/20 History Metoprolol Succinate (ER) [Toprol 12.5 mg PO HS 05/19/20 05/19/20 History Xl] Allergies Allergy/AdvReac Type Severity Reaction Status Date / Time amoxicillin Allergy Rash/Hives Verified 05/19/20 14:32 Penicillins Allergy Rash/Hives Verified 05/19/20 14:32 Physical Exam Vitals: Vital Signs Temp Pulse Resp BP Pulse Ox 05/21/20 08:00 97.4 F L 49 L 19 93/56 92 L 05/21/20 06:10 19 94 L 05/21/20 04:55 96 05/21/20 04:00 97.6 F 48 L 19 107/42 96 05/21/20 01:19 94 L 05/21/20 00:00 97.9 F 63 20 95/54 94 L 05/20/20 20:00 97.4 F L 51 L 17 100/54 94 L 05/20/20 15:06 97.5 F L 50 L 16 110/58 94 L 05/20/20 12:00 97.4 F L 59 L 16 98/45 94 L Intake and Output 05/20/20 05/21/20 05/21/20 22:59 06:59 14:59 Intake Total 240 120 Output Total 760 300 Balance -520 -300 120 Intake: Oral 240 120 Output: Urine 760 300 Other: Voiding Method Urinal Urinal Urinal # Voids 1 Weight 62.5 kg - Constitutional General appearance: no acute distress - Respiratory Respiratory: bilateral: rales - Cardiovascular Rhythm: regular Heart sounds: normal: S1, S2 Results 05/21/20 06:29 05/21/20 06:29 Cardiac Enzymes 05/21/20 Range/Units 06:29 AST 54 (17-59) U/L Lactate Dehydrogenase 673 H (313-618) U/L CBC 05/21/20 Range/Units 06:29 WBC 7.0 (3.8-10.6) k/uL RBC 4.88 (4.30-5.90) m/uL Hgb 14.9 (13.0-17.5) gm/dL Hct 42.6 (39.0-53.0) % Plt Count 190 (150-450) k/uL Comprehensive Metabolic Panel 05/21/20 Range/Units 06:29 Sodium 138 (137-145) mmol/L Potassium 4.4 (3.5-5.1) mmol/L Chloride 107 (98-107) mmol/L Carbon Dioxide 28 (22-30) mmol/L BUN 48 H (9-20) mg/dL Creatinine 1.03 (0.66-1.25) mg/dL Glucose 182 H (74-99) mg/dL Calcium 8.9 (8.4-10.2) mg/dL AST 54 (17-59) U/L ALT 56 H (4-49) U/L Alkaline Phosphatase 62 (38-126) U/L Total Protein 5.4 L (6.3-8.2) g/dL Albumin 2.9 L (3.5-5.0) g/dL Current Medications Generic Name Dose Route Start Last Admin Trade Name Freq PRN Reason Stop Dose Admin Acetaminophen 650 mg 05/19/20 14:22 Acetaminophen Tab 325 Mg Tab PO Q6HR PRN Mild Pain or Fever > 100.5 Hydrocodone Bitart/Acetaminophen 1 each 05/19/20 18:07 Hydrocodone/Apap 10-325mg 1 Each Tab PO QID PRN Pain Albuterol Sulfate 2 puff 05/19/20 18:07 Albuterol Hfa Inhaler INHALATION RT-Q6H PRN Shortness Of Breath Albuterol Sulfate 2 puff 05/20/20 12:00 05/21/20 08:03 Albuterol Hfa Inhaler INHALATION 2 puff RT-QID LYNDA Administration Apixaban 5 mg 05/19/20 21:00 05/21/20 08:37 Apixaban 5 Mg Tab PO 5 mg BID LYNDA Administration Ascorbic Acid 1,000 mg 05/20/20 09:00 05/21/20 08:37 Ascorbic Acid 500 Mg Tab PO 1,000 mg DAILY LYNDA Administration Aspirin 81 mg 05/20/20 09:00 05/21/20 08:37 Aspirin 81 Mg PO 81 mg DAILY [facility] Administration Atorvastatin Calcium 80 mg 05/19/20 21:00 05/20/20 20:45 Atorvastatin 80 Mg Tab PO 80 mg HS [facility] Administration Cholecalciferol 1,000 unit 05/21/20 09:00 05/21/20 08:38 Cholecalciferol 1,000 Unit Tab PO 1,000 unit DAILY [facility] Administration Doxycycline Monohydrate 100 mg 05/19/20 21:00 05/21/20 08:38 Doxycycline 100 Mg Cap PO 100 mg BID [facility] Administration Famotidine 40 mg 05/20/20 09:00 05/21/20 08:37 Famotidine 20 Mg Tab PO 40 mg DAILY [facility] Administration Folic Acid 1 mg 05/20/20 09:00 05/21/20 08:38 Folic Acid 1 Mg Tab PO 1 mg DAILY [facility] Administration Melatonin 5 mg 05/19/20 18:13 Melatonin 5 Mg Tablet PO HS PRN Insomnia Methylprednisolone Sodium Succinate 60 mg 05/19/20 18:00 05/21/20 06:32 Methylprednisolone Sod Succi 125 Mg/2 Ml Vial IV 60 mg Q6HR [facility] Administration Metoprolol Succinate 12.5 mg 05/19/20 21:00 05/20/20 20:45 Metoprolol Succinate (Er) 25 Mg Tab.Er.24h PO 12.5 mg HS [facility] Administration Naloxone HCl 0.2 mg 05/19/20 14:22 Naloxone 0.4 Mg/Ml 1 Ml Vial IV Q2M PRN Opioid Reversal Nitroglycerin 0.4 mg 05/19/20 18:07 Nitroglycerin Sl Tabs 0.4 Mg Tab SUBLINGUAL Q5M PRN Chest Pain Pantoprazole Sodium 40 mg 05/20/20 07:30 05/21/20 06:32 Pantoprazole 40 Mg Tablet PO 40 mg AC-BRKFST [facility] Administration Sacubitril/Valsartan 1 each 05/19/20 21:00 05/21/20 08:38 Sacubitril/Valsartan 24 Mg-26 Mg Tablet PO 1 each BID [facility] Administration Sotalol HCl 40 mg 05/21/20 21:00 Sotalol 80 Mg Tab PO BID [facility] Spironolactone 25 mg 05/20/20 09:00 05/21/20 08:38 Spironolactone 25 Mg Tab PO 25 mg DAILY LYNDA Administration Tiotropium [place] 2 puff 05/20/20 08:00 05/21/20 08:03 Tiotropium 2.5 Mcg Inhaler INHALATION 2 puff RT-DAILY LYNDA Administration Zinc Sulfate 220 mg 05/20/20 09:00 05/21/20 08:38 Zinc Sulfate 220 Mg Cap PO 220 mg DAILY LYNDA Administration Intake and Output 05/20/20 05/21/20 05/21/20 22:59 06:59 14:59 Intake Total 240 120 Output Total 760 300 Balance -520 -300 120 Intake: Oral 240 120 Output: Urine 760 300 Other: Voiding Method Urinal Urinal Urinal # Voids 1 Weight 62.5 kg 05/21/20 06:29 05/21/20 06:29 Assessment and Plan Assessment: Assessment #1 COVID-19 infection #2 prolonged QT interval related to sotalol #3 history of V. tach #4 cardiomyopathy, ischemic #5 coronary artery disease and prior stenting of the RCA #6 cardiomyopathy was EF around 40-45% Plan #1 agree about decreasing the dose of sotalol into half #2 continue monitoring the QT interval and discontinue the sotalol if the QT continues to be prolonged #3 continue beta kim #4 keep the magnesium and potassium within normal limits #5 avoid any electrolytes imbalance #6 the patient's creatinine is within normal limits.
--- NOTE | 2020-05-21 12:08 | P.PN ---
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 fib anticoagulated with Eliquis, COPD, hypertension, dyslipidemia, and multiple other comorbid conditions who presented to the ER with complaints of shortness of breath. He had been di agnosed with COVID 19 on 05/05/2020. He completed a dose of steroids and antibiotics from [facility] [facility] that he felt lasted about 7 days. He reports that he felt better initially but 2 days ago began feeling worse. In the emergency department he underwent an extensive evaluation. On arrival he was started on BiPAP secondary to increased work of breathing. He was started on BiPap. On initial laboratory analysis showed sodium of 134, BUN 59, creatinine 1.68 (appears baseline is between 1.4-1.8), total bilirubin 1.4, LDH 825, CRP 149. Initial chest x-ray showed interstitial infiltrates. EKG without ischemic changes. He was started on Solu-Medrol, bronchodilators. Arrangements were made for admission. Pulmonary was consulted. Initially he was started on antibiotics for prophylaxis and procalcitonin 0.38 and antibiotics were discontinued. Influenza A and B were negative. He was able to be transitioned from BiPAP hyponasal cannula on the morning of 05/20/20. He was noted to have prolonging Qt and cardio was consulted. Patient seen and examined at bedside. He is feeling much better today. He states his breathing is better, no chest pain, no nausea, no vomiting, no diarrhea with last bowel movement this morning. General: non toxic, no distress, appears at stated age Derm: warm, dry Head: atraumatic, normocephalic, symmetric Eyes: EOMI, no lid lag, anicteric sclera Mouth: no lip lesion, mucus membranes moist Cardiovascular: S1S2 reg, no murmur, positive posterior tibial pulse bilateral, Lungs: Coarse breath sounds bilateral, no rhonchi, no rales , no accessory muscle use, 3 word conversational dyspnea Abdominal: soft, nontender to palpation, no guarding, no appreciable organomegaly Ext: no gross muscle atrophy, no edema, no contractures Neuro: CN II-XI grossly intact, no focal neuro deficits Psych: Alert, oriented, appropriate affect AE COPD with COVID 19 pneumonitis - Abx stopped as procalcitonin negative and bacteral PNA ruled out - steroids, BDs - Consult pulmonary recs appreciated - Influenza A/B negative - Out of the window for Remdesivir - Vit C, Vit D, Zinc Prolonged Qt - consult cardio, Sotalol decreased - stop symbicort - elctrolytes reviewed and normal Acute Hypoxic Respiratory Failure - Wean O2 as able Chronic systolic CHF with EF 40-45% - Entresto, metoprolol - Spironolactone Chronic A fib - Sotalol - ASA - Eliquis GINO, resolved Chronic: HTN HLD GERD CAD with myocardial infarction CVA with peripheral neuropathy DVT prophylaxis: Eliquis Discussed with: patient, nursing Anticipated discharge date: 3-[address]: home A total of 35 minutes was spent on the care of this complex patient more than 5 0% of the time was spent in counseling and care coordination. Objective - Vital Signs Vital signs: Vital Signs Temp 97.4 F L 05/21/20 11:11 Pulse 53 L 05/21/20 11:11 Resp 20 05/21/20 11:11 BP 91/48 05/21/20 11:11 Pulse Ox 95 05/21/20 11:11 Intake & Output 05/20/20 05/21/20 05/21/20 18:59 06:59 18:59 Intake Total 650 120 Output Total 1150 710 Balance -500 -710 120 Weight 62.5 kg Intake: IV 50 cefTRIAXone 1 gm In 50 Sodium Chloride 0.9% 50 ml @ 100 mls/hr IVPB Q24HR [facility] Rx#:[id number] Oral 600 120 Output: Urine 700 710 Straight 350 Post Void Residual 450 Other: Voiding Method Urinal Urinal Urinal # Voids 1 - Labs CBC & Chem 7: 05/21/20 06:29 05/21/20 06:29 Labs: Abnormal Lab Results - Last 24 Hours (Table) 05/20/20 05/21/20 05/21/20 Range/Units 07:23 06:29 06:29 Lymphocytes # 0.4 L (1.0-4.8) k/uL BUN 48 H (9-20) mg/dL Glucose 182 H (74-99) mg/dL Ferritin 777.4 H (22.0-322.0) ng/mL ALT 56 H (4-49) U/L Lactate Dehydrogenase 673 H (313-618) U/L Total Protein 5.4 L (6.3-8.2) g/dL Albumin 2.9 L (3.5-5.0) g/dL Microbiology - Last 24 Hours (Table) 05/19/20 13:37 Blood Culture - Preliminary Blood No Growth after 24 hours
--- NOTE | 2020-05-21 14:10 | PN ---
PROGRESS NOTE PULMONARY/CRITICAL CARE PROGRESS NOTE: DATE OF SERVICE: 05/21/2020 74-year-old gentleman seen yesterday in consultation. He was admitted with diagnosis of COVID-19 pneumonitis/pneumonia with acute hypoxemic respiratory failure. The patient also has a history of underlying COPD from previous heavy tobacco use. The patient has a number of other major issues including CAD with previous stenting x7, ischemic cardiomyopathy with ejection fraction of 30-35%, gastroesophageal reflux disease, essential hypertension, hyperlipidemia, prior acute myocardial infarction, DJD, autoimmune hemolytic anemia, splenomegaly, ventricular tachycardia, skin cancer, Christensen's esophagus, and status post AICD placement. The patient was not a candidate for Remdesivir as he was beyond the window. Currently, the patient is feeling better today than he did yesterday. PHYSICAL EXAMINATION: Currently, his vital signs include a temperature 97.4, heart rate 53, respiratory rate 20, blood pressure 91/48, mean 62 and a saturation of 95-96% on 6 L. That is improved. HEENT: Examination is grossly unremarkable. NECK: Supple. CARDIOVASCULAR: Examination reveals regular rhythm and rate. Heart rate in the mid 50s. S1, S2 normal. Heart sounds are distant. LUNGS: Reveal coarse bilateral rhonchi. Some crackles noted. No wheezes. ABDOMEN: Soft. Bowel sounds are heard. EXTREMITIES are intact. No cyanosis, clubbing, or edema. SKIN: Without rash. NEUROLOGIC: Examination is nonfocal. White count 7 up from 1.8, hemoglobin 14.9, hematocrit 42.6, platelet count 190,000. Sodium 138, potassium 4.4, chloride 107, CO2 28, anion gap is 3. BUN and creatinine were 48 and 1.03. LDH was 673. C-reactive protein 88. Urine was negative. COVID testing was not performed. Influenza studies were negative. Microbiology is currently negative. A chest x-ray from the 1st shows changes of emphysema and bilateral basilar infiltrates, left greater than right. CURRENT MEDICATIONS: Reviewed. The patient is on Tylenol, albuterol inhaler, Eliquis, vitamin C, aspirin, Lipitor, vitamin D3, doxycycline, famotidine, folic acid, [place], melatonin, Solu- Medrol, metoprolol, Narcan, sublingual nitroglycerin, Protonix, Entresto, Betapace, Aldactone, Spiriva, and zinc. ASSESSMENT: 1. COVID-19 pneumonitis with acute hypoxemic respiratory failure. 2. History of underlying chronic obstructive pulmonary disease from previous heavy tobacco use. 3. History of coronary artery disease with previous catheterization and stenting x7. 4. Ischemic cardiomyopathy with ejection fraction of 30-35%. 5. Gastroesophageal reflux disease. 6. Benign essential hypertension. 7. Hyperlipidemia. 8. History of myocardial infarction. 9. Degenerative joint disease. 10.Autoimmune hemolytic anemia. 11.History of splenomegaly. 12.History of ventricular tachycardia. 13.Skin cancer. 14.Christensen's esophagus. 15.Status post AICD placement. PLAN: Overall, the patient seems to be doing relatively well. He is on the COVID cocktail including vitamin C, vitamin D3, and zinc. In addition, he is on Solu-Medrol. This is helping his underlying COPD as much as it is helping his COVID infection. We will continue to follow. He was beyond the Remdesivir window. No additional recommendations are made. MMODL / IJN: [id number] /
[2020-05-21 17:40] LABS: Ferritin 685.4 ng/mL (22.0-322.0)
[2020-05-21] MEDS: ATORVASTATIN 80 MG TAB PO SCH (21:08)
[2020-05-21] MEDS: METOPROLOL SUCCINATE (ER) 25 MG TAB.ER.24H PO SCH (21:08)
[2020-05-22] MEDS: methylPREDNISolone SOD SUCCI 125 MG/2 ML VIAL IV SCH ×2 (06:43→10:31)
[2020-05-22] MEDS: PANTOPRAZOLE 40 MG TABLET PO SCH (06:43)
[2020-05-22 06:48] LABS: Albumin 2.9 g/dL (3.5-5.0); Potassium 4.3 mmol/L (3.5-5.1); Total Bilirubin 0.9 mg/dL (0.2-1.3); Total Protein 5.4 g/dL (6.3-8.2)
[2020-05-22 06:54] LABS: Basophils % (A) 0 %; Eosinophils % (A) 0 %; HGB 14.5 gm/dL (13.0-17.5); Lymphocytes # (A) 0.4 k/uL (1.0-4.8); Lymphocytes % (A) 5 %; MCH 28.9 pg (25.0-35.0); MCHC 32.9 g/dL (31.0-37.0); MCV 87.8 fL (80.0-100.0); Mean Platelet Volume 7.9; Monocytes # (A) 0.3 k/uL (0-1.0); Monocytes % (A) 4 %; Neutrophils # (A) 6.8 k/uL (1.3-7.7); Neutrophils % (A) 90 %; Platelet Count 220 k/uL (150-450); Poikilocytosis Slight; RBC 5.02 m/uL (4.30-5.90); RDW 14.3 % (11.5-15.5); WBC 7.5 k/uL (3.8-10.6)
--- NOTE | 2020-05-22 07:06 | XR ---
EXAMINATION TYPE: XR chest 1V portable DATE OF EXAM: 05/22/2020 CLINICAL HISTORY: Difficulty breathing and covid pneumonia progress study. TECHNIQUE: Single AP portable upright view of the chest is obtained. COMPARISON: Chest x-ray from 2 days earlier and older studies. FINDINGS: Cardiac silhouette size stable and within normal limits with single lead pacemaker/defibri llator and atherosclerotic aorta are all redemonstrated. Persistent high riding heads consistent with chronic rotator cuff tears. Underlying chronic emphysematous change with persistent increased opacit y in the bases left more prominent than right. No pneumothorax seen bilaterally. IMPRESSION: Chronic emphysematous change with left greater than right bibasilar acute infiltrates red emonstrated.
[2020-05-22] MEDS: SOTALOL 80 MG TAB PO SCH ×2 (08:06→21:41)
[2020-05-22] MEDS: CHOLECALCIFEROL 1,000 UNIT TAB PO SCH (08:06)
[2020-05-22] MEDS: SPIRONOLACTONE 25 MG TAB PO SCH (08:06)
[2020-05-22] MEDS: ASCORBIC ACID 500 MG TAB PO SCH (08:06)
[2020-05-22] MEDS: ZINC SULFATE 220 MG CAP PO SCH (08:06)
[2020-05-22] MEDS: APIXABAN 5 MG TAB PO SCH ×2 (08:06→21:41)
[2020-05-22] MEDS: FAMOTIDINE 20 MG TAB PO SCH (08:06)
[2020-05-22] MEDS: FOLIC ACID 1 MG TAB PO SCH (08:06)
[2020-05-22] MEDS: ASPIRIN 81 MG PO SCH (08:06)
[2020-05-22] MEDS: SACUBITRIL/VALSARTAN 24 MG-26 MG TABLET PO SCH ×2 (08:06→21:41)
[2020-05-22] MEDS: DOXYCYCLINE 100 MG CAP PO SCH ×2 (08:07→21:41)
[2020-05-22] MEDS: TIOTROPIUM 2.5 MCG INHALER INHALATION SCH (08:15)
[2020-05-22] MEDS: ALBUTEROL HFA INHALER INHALATION SCH ×4 (08:15→20:45)
--- NOTE | 2020-05-22 10:20 | P.PN ---
Subjective Progress Note Date: 05/22/20 Principal diagnosis: Prolonged QT This is a very pleasant 74-year-old gentleman who sees Dr. Farmer in the office on regular basis with a past medical history significant for coronary artery disease and prior multiple stenting of the RCA, ischemic cardiomyopathy with known ejection fraction between 40-45%, status post AICD, history of V. tach with prior EP study with possible VT ablation at that point as well, as well as multiple comorbid conditions who was admitted to the hospital with increasing shortness of breath and he was diagnosed with COVID-19 in pneumonia. We c onsulted to see the patient mainly because of abnormal ECG. The patient clinically did not have any symptoms of chest pain or chest discomfort but he was experiencing increasing into shortness of breath. Which did not get better on antibiotic was prescribed by an urgent care. No dizziness or lightheadedness and no feeling of heart racing or fluttering or syncope. An EKG was performed yesterday and revealed a corrected QT of 4500 ms. The patient was receiving sotalol. The dose of sotalol was decreased into half. The patient was seen today May 222020. The repeat EKG showed significant improvement in the corrected QT to about 418 ms. Clinically the patient continues to be stable from a cardiovascular standpoint of view. His pressure has been marginal in all and because of that I am going to decrease the dose of Aldactone to 12.5 mg by mouth daily. Objective - Vital Signs Vital signs: Vital Signs Temp 97.4 F L 05/22/20 08:00 Pulse 56 L 05/22/20 08:00 Resp 18 05/22/20 08:00 BP 94/41 05/22/20 08:00 Pulse Ox 95 05/22/20 08:00 Intake & Output 05/21/20 05/22/20 05/22/20 18:59 06:59 18:59 Intake Total 650 240 Output Total 360 Balance 650 -360 240 Weight 59.9 kg Intake: IV 50 cefTRIAXone 1 gm In 50 Sodium Chloride 0.9% 50 ml @ 100 mls/hr IVPB Q24HR [facility] Rx#:[id number] Oral 600 240 Output: Urine 360 Other: Voiding Method Urinal Urinal # Voids 1 - Constitutional General appearance: Present: no acute distress - Labs CBC & Chem 7: 05/22/20 06:15 05/22/20 06:15 Labs: Abnormal Lab Results - Last 24 Hours (Table) 05/21/20 05/22/20 05/22/20 Range/Units 06:29 06:15 06:15 Lymphocytes # 0.4 L (1.0-4.8) k/uL Chloride 109 H (98-107) mmol/L BUN 43 H (9-20) mg/dL Glucose 167 H (74-99) mg/dL Ferritin 685.4 H (22.0-322.0) ng/mL ALT 69 H (4-49) U/L Total Protein 5.4 L (6.3-8.2) g/dL Albumin 2.9 L (3.5-5.0) g/dL Microbiology - Last 24 Hours (Table) 05/19/20 13:37 Blood Culture - Preliminary Blood No Growth after 48 hours Assessment and Plan Assessment: Assessment #1 COVID-19 infection #2 prolonged QT interval related to sotalol #3 history of V. tach #4 cardiomyopathy, ischemic #5 coronary artery disease and prior stenting of the RCA #6 cardiomyopathy was EF around 40-45% Plan #1 continue the current medical regimen #2 continue monitoring the QT interval #3 monitor electrolytes and try to keep the potassium and magnesium within normal limits #4 continue beta kim
--- NOTE | 2020-05-22 11:08 | P.PN ---
Subjective Progress Note Date: 05/22/20 Principal diagnosis: shortness of breath Patient is a 74-year-old male with a history of systolic cardiomyopathy with ejection fraction 40% s/p AICD, permanent A. fib anticoagulated with Eliquis, COPD, hypertension, dyslipidemia, and multiple other comorbid conditions who presented to the ER with complaints of shortness of breath. He had been diagnosed with COVID 19 on 05/05/2020. He completed a dose [facility] that he felt lasted about 7 days. He reports that he felt better initially but 2 days ago began feeling worse. In the emergency de partment he underwent an extensive evaluation. On arrival he was started on BiPAP secondary to increased work of breathing. He was started on BiPap. On initial laboratory analysis showed sodium of 134, BUN 59, creatinine 1.68 (appears baseline is between 1.4-1.8), total bilirubin 1.4, LDH 825, CRP 149. Initial chest x-ray showed interstitial infiltrates. EKG without ischemic changes. He was started on Solu-Medrol, bronchodilators. Arrangements were made for admission. Pulmonary was consulted. Initially he was started on antibiotics for prophylaxis and procalcitonin 0.38 and antibiotics were discontinued. Influenza A and B were negative. He was able to be transitioned from BiPAP hyponasal cannula on the morning of 05/20/20. He was noted to have prolonging Qt and cardio was consulted. His Sotalol was decreased and he was taken off symbicort. By the next morning his QTc was 438. He was still requiring 6L NC Patient seen and examined at bedside. General: non toxic, no distress, appears at stated age Derm: warm, dry Head: atraumatic, normocephalic, symmetric Eyes: EOMI, no lid lag, anicteric sclera Mouth: no lip lesion, mucus membranes moist Cardiovascular: S1S2 reg, no murmur, positive posterior tibial pulse bilateral, Lungs: ROnchi Bilateral bases, no rhonchi, no rales , no accessory muscle use, no conversational dyspnea Abdominal: soft, nontender to palpation, no guarding, no appreciable organomegaly Ext: no gross muscle atrophy, no edema, no contractures Neuro: CN II-XI grossly intact, no focal neuro deficits Psych: Alert, oriented, appropriate affect AE COPD with COVID 19 pneumonitis - Abx stopped as procalcitonin negative and bacterial PNA ruled out - steroids to oral, BDs, solumedrol resumed - Consult pulmonary recs appreciated - Influenza A/B negative - Out of the window for Remdesivir - Vit C, Vit D, Zinc Prolonged Qt, resolved - consult cardio, Sotalol decreased Acute Hypoxic Respiratory Failure - Wean O2 as able - home in AM if O2 4L of less Chronic systolic CHF with EF 40-45% - Entresto, metoprolol - Spironolactone Chronic A fib - Sotalol - ASA - Eliquis GINO, resolved Chronic: HTN HLD GERD CAD with myocardial infarction CVA with peripheral neuropathy DVT prophylaxis: Eliquis Discussed with: patient, nursing Anticipated discharge date: in AM Anticipated discharge place: home A total of 25 minutes was spent on the care of this complex patient more than 50% of the time was spent in counseling and care coordination. Objective - Vital Signs Vital signs: Vital Signs Temp 97.4 F L 05/22/20 08:00 Pulse 56 L 05/22/20 08:00 Resp 18 05/22/20 08:00 BP 94/41 05/22/20 08:00 Pulse Ox 95 05/22/20 08:00 Intake & Output 05/21/20 05/22/20 05/22/20 18:59 06:59 18:59 Intake Total 650 240 Output Total 360 Balance 650 -360 240 Weight 59.9 kg Intake: IV 50 cefTRIAXone 1 gm In 50 Sodium Chloride 0.9% 50 ml @ 100 mls/hr IVPB Q24HR [facility] Rx#:[id number] Oral 600 240 Output: Urine 360 Other: Voiding Method Urinal Urinal # Voids 1 - Labs CBC & Chem 7: 05/22/20 06:15 05/22/20 06:15 Labs: Abnormal Lab Results - Last 24 Hours (Table) 05/21/20 05/22/20 05/22/20 Range/Units 06:29 06:15 06:15 Lymphocytes # 0.4 L (1.0-4.8) k/uL Chloride 109 H (98-107) mmol/L BUN 43 H (9-20) mg/dL Glucose 167 H (74-99) mg/dL Ferritin 685.4 H (22.0-322.0) ng/mL ALT 69 H (4-49) U/L Total Protein 5.4 L (6.3-8.2) g/dL Albumin 2.9 L (3.5-5.0) g/dL Microbiology - Last 24 Hours (Table) 05/19/20 13:37 Blood Culture - Preliminary Blood No Growth after 48 hours
[2020-05-22] MEDS: predniSONE 20 MG TAB PO SCH (11:28)
--- NOTE | 2020-05-22 12:47 | PN ---
PROGRESS NOTE PULMONARY/CRITICAL CARE PROGRESS NOTE: DATE OF SERVICE: May 22, 2020 A 74-year-old gentleman seen 2 days ago in consultation. He was admitted on May 19 with a diagnosis of COVID-19 pneumonitis, with acute hypoxemic respiratory failure. The patient also has a history of underlying COPD from previous heavy tobacco use and sees one of my partners in the office. The patient has a number of other major medical issues including CAD with previous stenting x7, ischemic cardiomyopathy with ejection fraction 30-35%, GERD, essential hypertension, hyperlipidemia, prior acute myocardial infarction, DJD, autoimmune hemolytic anemia, splenomegaly, ventricular tachycardia, skin cancer, Christensen's esophagus, and status post AICD placement. The patient was not a candidate for Remdesivir as he was beyond the window. Currently, the patient is feeling better. He is down to 6 L nasal cannula. He still has some shortness of breath with exertion. He is still coughing a bit. Not producing any phlegm. There is no fever or chills. PHYSICAL EXAMINATION: VITAL SIGNS: Current vital signs are reviewed. Temperature is 97.5, heart rate 56, respiratory rate 16, blood pressure 91/43, mean 59, 4 L saturation 93%. Appears in no acute distress. HEENT: Examination is grossly unremarkable. NECK: Supple. CARDIOVASCULAR: Examination reveals regular rhythm rate. Heart rate mid to high 50s. S1, S2 normal. No murmur. Heart sounds are a bit distant. LUNGS: A few scattered mild rhonchi. No wheezes or crackles. ABDOMEN: Soft, bowel sounds are heard. EXTREMITIES: Intact. No cyanosis, clubbing, or edema. SKIN: Without rash. NEUROLOGIC: Examination is brief but nonfocal. LABORATORY DATA: White count 7.5, hemoglobin 14.5, hematocrit 44.0, platelet count normal. D-dimer was 0.39. Sodium 141, potassium 4.3, chloride 109, CO2 28, anion gap is 4. BUN and creatinine were 43 and 1.05. ALT 69, albumin 2.9. Microbiology was negative. IMAGING: A chest x-ray from today shows minimal left greater than right basilar infiltrates. CURRENT MEDICATIONS: Reviewed. The patient is currently on Tylenol, albuterol inhaler, Eliquis, vitamin C, aspirin, Lipitor, Symbicort, vitamin D3, Vibramycin, Pepcid, folic acid, [place], melatonin, metoprolol, Narcan, nitroglycerin tablets, Protonix, prednisone, Entresto, Betapace, Aldactone, Spiriva, and zinc. ASSESSMENT: 1. COVID-19 pneumonitis with acute hypoxemic respiratory failure. 2. History of underlying chronic obstructive pulmonary disease, from previous heavy tobacco use. 3. History of coronary artery disease with previous catheterization and stenting x7. 4. Ischemic cardiomyopathy, with ejection fraction of 30-35%. 5. Gastroesophageal reflux disease. 6. Benign essential hypertension. 7. Hyperlipidemia. 8. Prior history of myocardial infarction. 9. Degenerative joint disease. 10.Autoimmune hemolytic anemia. 11.History of splenomegaly. 12.History of ventricular tachycardia. 13.Skin cancer. 14.Christensen's esophagus. 15.Status post AICD placement. PLAN: Overall, the patient seems to be doing reasonably well. He is down to 6 L. He states his breathing is improved. He does get short of breath on exertion. He has minimal cough. No phlegm production. No fever or chills. No chest pain. MMODL / IJN: [id number] /
[2020-05-22] MEDS: SYMBICORT 160-4.5 MCG INHALER INHALATION SCH (20:45)
[2020-05-22] MEDS: METOPROLOL SUCCINATE (ER) 25 MG TAB.ER.24H PO SCH (21:40)
[2020-05-22] MEDS: ATORVASTATIN 80 MG TAB PO SCH (21:41)
[2020-05-23] MEDS: PANTOPRAZOLE 40 MG TABLET PO SCH (06:38)
[2020-05-23 07:00] LABS: C Reactive Protein 3.8 mg/dL (0.0-0.8)
[2020-05-23] MEDS: TIOTROPIUM 2.5 MCG INHALER INHALATION SCH (07:48)
[2020-05-23] MEDS: ALBUTEROL HFA INHALER INHALATION SCH ×2 (07:48→11:53)
[2020-05-23] MEDS: SYMBICORT 160-4.5 MCG INHALER INHALATION SCH (07:48)
[2020-05-23] MEDS: predniSONE 20 MG TAB PO SCH (08:14)
[2020-05-23] MEDS: ASCORBIC ACID 500 MG TAB PO SCH (08:14)
[2020-05-23] MEDS: ZINC SULFATE 220 MG CAP PO SCH (08:14)
[2020-05-23] MEDS: SACUBITRIL/VALSARTAN 24 MG-26 MG TABLET PO SCH (08:15)
[2020-05-23] MEDS: ASPIRIN 81 MG PO SCH (08:15)
[2020-05-23] MEDS: FAMOTIDINE 20 MG TAB PO SCH (08:15)
[2020-05-23] MEDS: APIXABAN 5 MG TAB PO SCH (08:15)
[2020-05-23] MEDS: DOXYCYCLINE 100 MG CAP PO SCH (08:15)
[2020-05-23] MEDS: CHOLECALCIFEROL 1,000 UNIT TAB PO SCH (08:15)
[2020-05-23] MEDS: SOTALOL 80 MG TAB PO SCH (08:15)
[2020-05-23] MEDS: FOLIC ACID 1 MG TAB PO SCH (08:15)
[2020-05-23] MEDS ORDERED: SPIRONOLACTONE 25 MG TAB PO SCH (09:00)
[2020-05-23 10:04] VITALS: BP 108/61; PULSE 63; RESP 20; TEMP 97.4
--- NOTE | 2020-05-23 10:20 | P.DS ---
Providers Date of admission: 05/19/20 14:22 Expected date of discharge: 05/23/20 Attending physician: Mita Heredia DO Consults: 05/19/20 14:23 Consult Physician Urgent Consulting Provider: Byron Gaitan Consult Reason/Comments: Respiratory failure, COPD, Covid Do you want consulting provider notified?: Yes 05/21/20 09:01 Consult Physician Routine Consulting Provider: Augustus Higuera Consult Reason/Comments: prolonged Qt on sotalol Do you want consulting provider notified?: Yes Primary care physician: Rafael Charles MD Hospital Course: Discharge Diagnosis: Acute exacerbation of COPD COVID 19 pneumonitis Prolonged Qt resolved- Sotalol dose decreased Acute on chronic hypoxic respiratory failure Chorinc systolic CHF, EF 40-45% Chronic A fib GINO HTN HLD GERD CAD with myocardial infarction CVA with peripheral neuropathy Hospital Course: Patient is a 74-year-old male with a history of systolic cardiomyopathy with ejection fraction 40% s/p AICD, permanent A. fib anticoagulated with Eliquis, COPD, hypertension, dyslipidemia, and multiple other comorbid conditions who presented to the ER with complaints of shortness of breath. He had been diagnosed with COVID 19 on 05/05/2020. He completed a dose of steroids and antibiotics from [facility] that he felt lasted about 7 days. He reports that he felt better initially but 2 days ago began feeling worse. In the emergency department he underwent an extensive evaluation. On arrival he was started on BiPAP secondary to increased work of breathing. He was started on BiPap. On initial laboratory analysis showed sodium of 134, BUN 59, creatinine 1.68 (appears baseline is between 1.4-1.8), total bilirubin 1.4, LDH 825, CRP 149. Initial chest x-ray showed interstitial infiltrates. EKG without ischemic changes. He was started on Solu-Medrol, bronchodilators. Arrangements were made for admission. Pulmonary was consulted. Initially he was started on antibiotics for prophylaxis and procalcitonin 0.38 and antibiotics were discontinued. Influenza A and B were negative. He was able to be transitioned from BiPAP hyponasal cannula on the morning of 05/20/20. He was noted to have prolonging Qt and cardio was consulted. His Sotalol was decreased and he was taken off symbicort. By the next morning his QTc was 438. He was still requiring 6L NC which was able to be decreased. While walking SpO2 was 87% and he will need home O2 with ambulation. He will follow with Dr. Charles in 1-2 days, Dr. Gaitan in [address] Farmer in 2 weeks. Patient seen and examined at bedside. Breathing near baseline, No chest pain, No nausea, no vomiting, no diarreha. Vital signs reviewed and stable. General: non toxic, no distress, appears at stated age Derm: warm, dry Head: atraumatic, normocephalic, symmetric Eyes: EOMI, no lid lag, anicteric sclera Mouth: no lip lesion, mucus membranes moist Cardiovascular: S1S2 reg, no murmur, positive posterior tibial pulse bilateral, Lungs: Course bs bilateral, no rhonchi, no rales , no accessory muscle use Abdominal: soft, nontender to palpation, no guarding, no appreciable organomegaly Ext: no gross muscle atrophy, no edema, no contractures Neuro: CN II-XI grossly intact, no focal neuro deficits Psych: Alert, oriented, appropriate affect A total of 35 minutes of time were spent preparing this complex discharge summary . Patient Condition at Discharge: Stable Plan - Discharge Summary Discharge Rx Participant: No New Discharge Prescriptions: New Sotalol [Betapace] 40 mg PO BID #30 tab predniSONE [Deltasone] 60 mg PO DAILY #5 tab Zinc Sulfate [Orazinc] 220 mg PO DAILY #15 cap Doxycycline [Vibramycin] 100 mg PO BID #4 cap Ascorbic Acid [Vitamin C] 1,000 mg PO DAILY #15 tab Continue Omeprazole [PriLOSEC] 20 mg PO AC-BRKFST Folic Acid 1 mg PO DAILY Cholecalciferol [Vitamin D3 (25 Mcg = 1000 Iu)] 1,000 unit PO BID Budesonide-Formot 160-4.5 Mcg [Symbicort 160-4.5 Mcg Inhaler] 2 puff INHALATION RT-BID Tiotropium [place] [Spiriva] 1 cap INHALATION RT-DAILY Nitroglycerin Sl Tabs [Nitrostat] 0.4 mg SUBLINGUAL Q5M PRN #25 tab PRN Reason: Chest Pain Albuterol Sulfate [Proventil Hfa] 2 puff INHALATION RT-Q6H PRN PRN Reason: Shortness Of Breath Albuterol Nebulized [Ventolin Nebulized] 2.5 mg INHALATION RT-BID Sacubitril/Valsartan [Entresto 24 mg-26 mg Tablet] 1 tab PO BID Atorvastatin [Lipitor] 80 mg PO HS Spironolactone [Aldactone] 25 mg PO DAILY Albuterol Nebulized [Ventolin Nebulized] 2.5 mg INHALATION RT-QID PRN PRN Reason: Shortness Of Breath HYDROcodone/APAP 10-325MG [[place] 10-325] 1 tab PO QID PRN PRN Reason: Pain Metoprolol Succinate (ER) [Toprol XL] 12.5 mg PO HS Apixaban [Eliquis] 5 mg PO BID Aspirin 81 mg PO DAILY Discontinued Sotalol [Betapace] 80 mg PO BID #20 tab Discharge Medication List Budesonide-Formot 160-4.5 Mcg [Symbicort 160-4.5 Mcg Inhaler] 2 puff INHALATION RT-BID 02/22/15 [History] Cholecalciferol [Vitamin D3 (25 Mcg = 1000 Iu)] 1,000 unit PO BID 02/22/15 [History] Folic Acid 1 mg PO DAILY 02/22/15 [History] Omeprazole [PriLOSEC] 20 mg PO AC-BRKFST 02/22/15 [History] Tiotropium [place] [Spiriva] 1 cap INHALATION RT-DAILY 02/22/15 [History] Nitroglycerin Sl Tabs [Nitrostat] 0.4 mg SUBLINGUAL Q5M PRN #25 tab 02/25/15 [Rx] Albuterol Sulfate [Proventil Hfa] 2 puff INHALATION RT-Q6H PRN 03/19/17 [History] Albuterol Nebulized [Ventolin Nebulized] 2.5 mg INHALATION RT-BID 05/02/17 [History] Sacubitril/Valsartan [Entresto 24 mg-26 mg Tablet] 1 tab PO BID 08/07/18 [History] Albuterol Nebulized [Ventolin Nebulized] 2.5 mg INHALATION RT-QID PRN 12/22/19 [History] Atorvastatin [Lipitor] 80 mg PO HS 12/22/19 [History] HYDROcodone/APAP 10-325MG [[place] 10-325] 1 tab PO QID PRN 12/22/19 [History] Spironolactone [Aldactone] 25 mg PO DAILY 12/22/19 [History] Apixaban [Eliquis] 5 mg PO BID 05/19/20 [History] Aspirin 81 mg PO DAILY 05/19/20 [History] Metoprolol Succinate (ER) [Toprol XL] 12.5 mg PO HS 05/19/20 [History] Ascorbic Acid [Vitamin C] 1,000 mg PO DAILY #15 tab 05/23/20 [Rx] Doxycycline [Vibramycin] 100 mg PO BID #4 cap 05/23/20 [Rx] Sotalol [Betapace] 40 mg PO BID #30 tab 05/23/20 [Rx] Zinc Sulfate [Orazinc] 220 mg PO DAILY #15 cap 05/23/20 [Rx] predniSONE [Deltasone] 60 mg PO DAILY #5 tab 05/23/20 [Rx] Follow up Appointment(s)/Referral(s): Byron Gaitan MD [STAFF PHYSICIAN] - 2 Weeks Viet Farmer MD [STAFF PHYSICIAN] - 2 Weeks Rafael Charles MD [Primary Care Provider] - 1-2 Days ([facility] ) [facility] [NON-STAFF] - None,Stated [REFERRING] - 1-2 days Activity/Diet/Wound Care/Special Instructions: Activity: as tolerated Diet: heart healthy Special Instructions: Patient will require home oxygen at discharge secondary to dx: COVID-19 You need oxygen when up and walking Discharge Disposition: HOME SELF-CARE
[2020-05-23 12:47] VITALS: BMI 17.5
== END 2020-05-23 14:36 | disposition home or self-care (01) | DRG 177 ==
LOC: EC 12:56 → 3SCARD 14:22
PROVIDERS: ADMIT Internal Medicine; ATTEND Internal Medicine
PROC: 5A09357 Assistance with Respiratory Ventilation, Less than 24 Consecutive Hours, Continuous Positive Airway Pressure (ICD-10-PCS; principal; 2020-05-19)
DX: U07.1 COVID-19 (principal); J96.21 Acute and chronic respiratory failure with hypoxia; J12.82 Pneumonia due to coronavirus disease 2019; D59.10 Autoimmune hemolytic anemia, unspecified; I48.21 Permanent atrial fibrillation; I50.22 Chronic systolic (congestive) heart failure; N17.9 Acute kidney failure, unspecified; J44.0 Chronic obstructive pulmonary disease with (acute) lower respiratory infection; J44.1 Chronic obstructive pulmonary disease with (acute) exacerbation; C44.90 Unspecified malignant neoplasm of skin, unspecified; E78.5 Hyperlipidemia, unspecified; G62.9 Polyneuropathy, unspecified; H54.7 Unspecified visual loss; I11.0 Hypertensive heart disease with heart failure; I25.2 Old myocardial infarction; I25.10 Atherosclerotic heart disease of native coronary artery without angina pectoris; I25.5 Ischemic cardiomyopathy; K21.9 Gastro-esophageal reflux disease without esophagitis; M19.90 Unspecified osteoarthritis, unspecified site; K22.70 Barrett's esophagus without dysplasia; Z79.01 Long term (current) use of anticoagulants; Z79.51 Long term (current) use of inhaled steroids; Z79.82 Long term (current) use of aspirin; Z79.899 Other long term (current) drug therapy; Z80.0 Family history of malignant neoplasm of digestive organs; Z82.49 Family history of ischemic heart disease and other diseases of the circulatory system; Z85.828 Personal history of other malignant neoplasm of skin; Z86.73 Personal history of transient ischemic attack (TIA), and cerebral infarction without residual deficits; Z87.891 Personal history of nicotine dependence; Z95.5 Presence of coronary angioplasty implant and graft; Z95.810 Presence of automatic (implantable) cardiac defibrillator; Z96.1 Presence of intraocular lens; Z98.41 Cataract extraction status, right eye; Z98.42 Cataract extraction status, left eye; Z57.4 Occupational exposure to toxic agents in agriculture; R94.31 Abnormal electrocardiogram [ECG] [EKG]
CPT/HCPCS: 36415; 36600; 71045; 80053; 81003; 82728; 82805; 83605; 83615; 83735; 84145; 85025; 85379; 85610; 85730; 86140; 87040; 87502; 93005; 94640; 94660; 94760; 96361; 96374; 99291

== ENCOUNTER → 2020-08-08 | Outpatient (CLI) | payer BC, OTHER | END | disposition home or self-care (01) | LOC: RADMRIMAIN 13:05 | PROVIDERS: ATTEND Ophthalmology | DX: Z53.9 Procedure and treatment not carried out, unspecified reason (principal) ==

== ENCOUNTER → 2020-08-19 | Outpatient (CLI) | payer OTHER ==
--- NOTE | 2020-08-19 15:30 | CT ---
EXAMINATION TYPE: CT brain w con DATE OF EXAM: 08/19/2020 COMPARISON: 12/22/2019 INDICATION: Follow up CVA. DLP: 1199 mGycm, Automated exposure control for dose reduction was used. CONTRAST: 100 mL Isovue-300 CT of the brain is performed utilizing 3 mm thick sections through the posterior fossa and 3 mm thick sections through the remaining calvarium. Study is performed within 24 hours of arrival to the hosp ital. No abnormal hyperdensity is present to suggest an acute intracranial hemorrhage. No mass lesion is evident. No suspicious enhancement is evident. No acute infarcts are evident. The old left medial inferior occipital lobe infarct is evident and sta ble. Periventricular white matter hypodensity is present, likely on the basis of chronic white matter ischemic changes. Ventricles and sulci are appropriate for the patient age. Some mild mucosal thickening with air-fluid levels are within the maxillary sinuses. Air-fluid levels are noted within the sphenoid sinuses. Correlate for acute maxillary and sphenoid sinusitis. There i s retention cyst or mucosal thickening through the right ethmoid air cells and cribriform plate defec t may be present. Prior uncinectomies been performed. Prior ethmoidectomies are evident. Mastoid air cells are clear. IMPRESSIONS: 1. Old left occipital lobe infarct. 2. Periventricular white matter ischemic type changes. 3. Postsurgical changes within the sinuses. Defect along the cribriform plate over the opacified mid right ethmoid air cells may be present. 4. Clinical correlation recommended for acute maxillary and sphenoid sinusitis.
== END | disposition home or self-care (01) ==
LOC: RADCTMAIN 13:31
DX: I67.82 Cerebral ischemia (principal); I63.9 Cerebral infarction, unspecified; Z88.1 Allergy status to other antibiotic agents; Z88.0 Allergy status to penicillin; Z98.890 Other specified postprocedural states; Z86.73 Personal history of transient ischemic attack (TIA), and cerebral infarction without residual deficits
CPT/HCPCS: 82565; 84520; 70460; 36415; Q9967

== ENCOUNTER 2022-09-04 13:41 | Emergency (ER) | payer MEDICARE, OTHER ==
[2022-09-04 14:00] VITALS: TEMP 98.3
--- NOTE | 2022-09-04 14:39 | ED ---
General Adult HPI - General Source: patient Mode of arrival: ambulatory Limitations: no limitations <Renea Lombardo - Last Filed: 09/04/22 14:39> - History of Present Illness -: hour(s) Location: chest Severity scale (1-10): 0 Consistency: now resolved Improves with: none Worsens with: none Associated Symptoms: other (Palpitations) Treatments Prior to Arrival: none <Dexter Iraheta - Last Filed: 09/16/22 23:30> - General Chief complaint: Recheck/Abnormal Lab/Rx Stated complaint: defibrillator sent by Dr Akins Seen by Provider: 09/04/22 14:39 - History of Present Illness Initial comments: 76-year-old male presents to the emergency department with a chief co mplaint of his defibrillator went off earlier today. He called his medical biller/coder who is Dr. Rahman who recommended he be evaluated in the emergency department. Patient denies any active chest pain or shortness breath this time. However he does report feeling like his heart is skipping a beat. (Renea Lombardo) As above, this occurred around 11:30 this morning, after he had gone up and down the stairs in his home. Patient had no premonitory symptoms. No chest pain dyspnea. (Dexter Iraheta) - Related Data Home Medications Medication Instructions Recorded Confirmed Folic Acid 1 mg PO DAILY 02/22/15 09/04/22 Omeprazole [PriLOSEC] 20 mg PO AC-BRKFST 02/22/15 09/04/22 Albuterol Sulfate [Proventil Hfa] 2 puff INHALATION RT-Q6H PRN 03/19/17 09/04/22 Albuterol Nebulized [Ventolin 2.5 mg INHALATION RT-BID 05/02/17 09/04/22 Nebulized] Sacubitril/Valsartan [Entresto 24 1 tab PO BID 08/07/18 09/04/22 mg-26 mg Tablet] Atorvastatin [Lipitor] 80 mg PO HS 12/22/19 09/04/22 Spironolactone [Aldactone] 25 mg PO DAILY 12/22/19 09/04/22 Apixaban [Eliquis] 5 mg PO BID 05/19/20 09/04/22 Aspirin 81 mg PO DAILY 05/19/20 09/04/22 Cholecalciferol [Vitamin D3 (25 25 mcg PO BID 09/04/22 09/04/22 Mcg = 1000 Iu)] Fluticasone Propion/Salmeterol 1 puff INHALATION RT-BID 09/04/22 09/04/22 [[place] 250-50 Inhub] HYDROcodone/APAP 10-325MG [[place] 1 tab PO QID PRN 09/04/22 09/04/22 10-325] Magnesium Chloride [Mag64] 64 mg PO DAILY 09/04/22 09/04/22 Sotalol [Betapace] 80 mg PO BID 09/04/22 09/04/22 Previous Rx's Medication Instructions Recorded Nitroglycerin Sl Tabs [Nitrostat] 0.4 mg SUBLINGUAL Q5M PRN #25 tab 02/25/15 Allergies Allergy/AdvReac Type Severity Reaction Status Date / Time amoxicillin Allergy Rash/Hives Verified 09/04/22 17:18 Penicillins Allergy Rash/Hives Verified 09/04/22 17:18 Review of Systems ROS Other: All systems not noted in ROS Statement are negative. <Renea Lombardo - Last Filed: 09/04/22 14:39> ROS Other: All systems not noted in ROS Statement are negative. <Dexter Iraheta - Last Filed: 09/16/22 23:30> ROS Statement: Those systems with pertinent positive or pertinent negative responses have been documented in the HPI. Past Medical History Past Medical History: Atrial Fibrillation, Coronary Artery Disease (CAD), Cancer, Heart Failure, COPD, CVA/TIA, GERD/Reflux, Hyperlipidemia, Hypertension, Myocardial Infarction (CT), Osteoarthritis (OA) Additional Past Medical History / Comment(s): Autoimmune disorder with hx. 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 vision loss, covid pnemonia May 05, 2020 Last Myocardial Infarction Date:: 2016 History of Any Multi-Drug Resistant Organisms: None Reported Past Surgical History: AICD, Heart Catheterization, Heart Catheterization With Stent Additional Past Surgical History / Comment(s): PT STATED HE HAS A TOTAL OF 7 STENTS, colonoscopy, sinus sx, bilateral cataract removal with lens implants, L hydrocele surgery Past Anesthesia/Blood Transfusion Reactions: No Reported Reaction Date of Last Stent Placement:: 2015 Type of Cardiac Device: Permanent Pacemaker, AICD Device Placement Date:: 2014 [employer] Past Psychological History: No Psychological Hx Reported Smoking Status: Former smoker Past Alcohol Use History: Rare Past Drug Use History: None Reported - Past Family History Sister(s) Family Medical History: Cancer Additional Family Medical History / Comment(s): Colon CA. Father Family Medical History: Myocardial Infarction (CT) Additional Family Medical History / Comment(s): FATHER HAD MIs. Mother Family Medical History: Cancer Additional Family Medical History / Comment(s): COLON CANCER. <Renea Lombardo - Last Filed: 09/04/22 14:39> General Exam Limitations: no limitations <Renea Lombardo - Last Filed: 09/04/22 14:39> Limitations: no limitations General appearance: alert, in no apparent distress Head exam: Present: atraumatic, normocephalic Eye exam: Present: normal appearance Neck exam: Present: normal inspection Respiratory exam: Present: normal lung sounds bilaterally. Absent: respiratory distress, wheezes, rales, rhonchi, stridor, accessory muscle use Cardiovascular Exam: Present: regular rate, normal rhythm, normal heart sounds. Absent: systolic murmur, diastolic murmur, rubs, gallop GI/Abdominal exam: Present: soft. Absent: distended, tenderness, guarding, rebound, rigid, mass Extremities exam: Present: normal inspection, normal capillary refill. Absent: pedal edema, calf tenderness Back exam: Present: normal inspection. Absent: CVA tenderness (R), CVA tenderness (L) Neurological exam: Present: alert Skin exam: Present: warm, dry, intact, normal color. Absent: rash <Dexter Iraheta - Last Filed: 09/16/22 23:30> - General Exam Comments Initial Comments: Visual Physical Exam Vital signs reviewed General: Well-appearing, nontoxic, no acute distress. Head: Normocephalic, atraumatic Eyes: PERRLA, EOMI ENT: Airway patent Chest: Nonlabored breathing Skin: No visual rash, normal skin tone Neuro: Alert and oriented 3 Musculoskeletal: No gross abnormalities (Renea Lombardo) Course Vital Signs 09/04/22 09/04/22 09/04/22 13:58 15:17 19:30 Temperature 98.3 F Pulse Rate 82 76 71 Respiratory 18 18 16 Rate Blood Pressure 153/80 142/77 145/72 O2 Sat by Pulse 96 99 99 Oximetry Medical Decision Making - Lab Data Result diagrams: 09/04/22 14:04 09/04/22 14:04 <Dexter Iraheta - Last Filed: 09/16/22 23:30> - Medical Decision Making 's patient is 76-year-old man who presents after having had a defibrillator discharge. The device is interrogated in the department showing that the patient did have episode of ventricular fibrillation and the defibrillator discharge shock the patient back into sinus rhythm. The patient remains asymptomatic here was found to have hypomagnesemia at 1.3. The magnesium is supplemented 2 g by IV. I discussed the case with Dr. Cherry cardiology, [place] over the labs, x-ray, history and physical, and they will see the patient in clinic this week. Should the patient develop any symptoms that he is to return to the hospital for admission. The patient had a chest x-ray as part of a workup which I interpreted as not showing pneumothorax, infiltrates, or congestive heart failure. Was pt. sent in by a medical professional or institution (, PA, CORPORATE SECURITIES RESEARCH ANALYST, urgent care, hospital, or [facility]...) When possible be specific @ -[No] Did you speak to anyone other than the patient for history (EMS, parent, family, police, friend...)? What history was obtained from this source @ -[No] Did you review nursing and triage notes (agree or disagree)? Why? @ -[I reviewed and agree with nursing and triage notes] Were old charts reviewed (outside hosp., previous admission, EMS record, old EKG, old radiological studies, urgent care reports/EKG's, ch[facility] records)? Report findings @ -[ old charts were reviewed] Differential Diagnosis (chest pain, altered mental status, abdominal pain women, abdominal pain men, vaginal bleeding, weakness, fever, dyspnea, syncope, headache, dizziness, GI bleed, back pain, seizure, CVA, palpatations, mental health, musculoskeletal)? @ -[Differential Chest Pain: Stable Angina, Unstable Angina, STEMI, NSTEMI Aortic Dissection, Pneumothorax, Musculoskeletal, Esophageal Spasm GERD, Cholecystitis, Pancreatitis, Zoster, this is not meant to be an all-inclusive list. EKG interpreted by me (3pts min.). @ -[As above] X-rays interpreted by me (1pt min.). @ -[As above CT interpreted by me (1pt min.). @ -[None done] U/S interpreted by me (1pt. min.). @ -[None done] What testing was considered but not performed or refused? (CT, X-rays, U/S, labs)? Why? @ -[None] What meds were considered but not given or refused? Why? @ -[None] Did you discuss the management of the patient with other professionals (professionals i.e. DrRandy, PA, CORPORATE SECURITIES RESEARCH ANALYST, lab, RT, psych nurse, drug abuse social worker, information security associate, teacher, credit products officer, returned case inspector)? Give summary @ -[Case was discussed with the medical biller/coder Was smoking cessation discussed for >3mins.? @ -[No] Was critical care preformed (if so, how long)? @ -[No] Were there social determinants of health that impacted care today? How? (Homelessness, low income, unemployed, alcoholism, drug addiction, transportation, low edu. Level, literacy, decrease access to med. care, skilled nursing, rehab)? @ -[No] Was there de-escalation of care discussed even if they declined (Discuss DNR or withdrawal of care, Hospice)? DNR status @ -[No] What co-morbidities impacted this encounter? (DM, HTN, Smoking, COPD, CAD, Can cer, CVA, ARF, Chemo, Hep., AIDS, mental health diagnosis, sleep apnea, morbid obesity)? @ -[CAD Was patient admitted / discharged? Hospital course, mention meds given and route, prescriptions, significant lab abnormalities, going to OR and other pertinent info. @ -[Discharged Undiagnosed new problem with uncertain prognosis? @ -[No] Drug Therapy requiring intensive monitoring for toxicity (Heparin, Nitro, Insulin, Cardizem)? @ -[No] Were any procedures done? @ -[No] Diagnosis/symptom? @ -[Acute defibrillator discharge Acute ventricular fibrillation, resolved Acute, or Chronic, or Acute on Chronic? @ -[default] Uncomplicated (without systemic symptoms) or Complicated (systemic symptoms)? @ -[default] Side effects of treatment? @ -[No] Exacerbation, Progression, or Severe Exacerbation? @ -[No] Poses a threat to life or bodily function? How? (Chest pain, USA, CT, pneumonia, PE, COPD, DKA, ARF, appy, cholecystitis, CVA, Diverticulitis, Homicidal, Suicidal, threat to staff... and all critical care pts) @ -[No] (Dexter Iraheta) - Lab Data Lab Results 09/04/22 09/04/22 09/04/22 Range/Units 14:04 14:04 14:04 WBC 6.3 (3.8-10.6) k/uL RBC 4.85 (4.30-5.90) m/uL Hgb 14.6 (13.0-17.5) gm/dL Hct 42.5 (39.0-53.0) % MCV 87.6 (80.0-100.0) fL MCH 30.2 (25.0-35.0) pg MCHC 34.4 (31.0-37.0) g/dL RDW 13.5 (11.5-15.5) % Plt Count 156 (150-450) k/uL MPV 7.1 Neutrophils % 70 % Lymphocytes % 20 % Monocytes % 5 % Eosinophils % 3 % Basophils % 1 % Neutrophils # 4.4 (1.3-7.7) k/uL Lymphocytes # 1.3 (1.0-4.8) k/uL Monocytes # 0.3 (0-1.0) k/uL Eosinophils # 0.2 (0-0.7) k/uL Basophils # 0.0 (0-0.2) k/uL Poikilocytosis Slight PT 12.5 H (9.0-12.0) sec INR 1.2 H (<1.2) APTT 25.7 (22.0-30.0) sec Sodium 142 (137-145) mmol/L Potassium 3.6 (3.5-5.1) mmol/L Chloride 106 (98-107) mmol/L Carbon Dioxide 28 (22-30) mmol/L Anion Gap 8 mmol/L BUN 11 (9-20) mg/dL Creatinine 0.94 (0.66-1.25) mg/dL Est GFR (CKD-EPI)AfAm >90 (>60 ml/min/1.73 sqM) Est GFR (CKD-EPI)NonAf 79 (>60 ml/min/1.73 sqM) Glucose 74 (74-99) mg/dL Calcium 9.2 (8.4-10.2) mg/dL Magnesium 1.3 L (1.6-2.3) mg/dL Total Bilirubin 1.2 (0.2-1.3) mg/dL AST 25 (17-59) U/L ALT 16 (4-49) U/L Alkaline Phosphatase 62 (38-126) U/L Troponin I (0.000-0.034) ng/mL Total Protein 6.4 (6.3-8.2) g/dL Albumin 4.0 (3.5-5.0) g/dL TSH 4.270 (0.465-4.680) mIU/L 09/04/22 Range/Units 14:04 WBC (3.8-10.6) k/uL RBC (4.30-5.90) m/uL Hgb (13.0-17.5) gm/dL Hct (39.0-53.0) % MCV (80.0-100.0) fL MCH (25.0-35.0) pg MCHC (31.0-37.0) g/dL RDW (11.5-15.5) % Plt Count (150-450) k/uL MPV Neutrophils % % Lymphocytes % % Monocytes % % Eosinophils % % Basophils % % Neutrophils # (1.3-7.7) k/uL Lymphocytes # (1.0-4.8) k/uL Monocytes # (0-1.0) k/uL Eosinophils # (0-0.7) k/uL Basophils # (0-0.2) k/uL Poikilocytosis PT (9.0-12.0) sec INR (<1.2) APTT (22.0-30.0) sec Sodium (137-145) mmol/L Potassium (3.5-5.1) mmol/L Chloride (98-107) mmol/L Carbon Dioxide (22-30) mmol/L Anion Gap mmol/L BUN (9-20) mg/dL Creatinine (0.66-1.25) mg/dL Est GFR (CKD-EPI)AfAm (>60 ml/min/1.73 sqM) Est GFR (CKD-EPI)NonAf (>60 ml/min/1.73 sqM) Glucose (74-99) mg/dL Calcium (8.4-10.2) mg/dL Magnesium (1.6-2.3) mg/dL Total Bilirubin (0.2-1.3) mg/dL AST (17-59) U/L ALT (4-49) U/L Alkaline Phosphatase (38-126) U/L Troponin I 0.053 H* (0.000-0.034) ng/mL Total Protein (6.3-8.2) g/dL Albumin (3.5-5.0) g/dL TSH (0.465-4.680) mIU/L Disposition <Renea Lombardo - Last Filed: 09/04/22 14:39> Is patient prescribed a controlled substance at d/c from ED?: No <Dexter Iraheta - Last Filed: 09/16/22 23:30> Clinical Impression: Hypomagnesemia, Defibrillator discharge Disposition: HOME SELF-CARE Condition: Good Instructions (If sedation given, give patient instructions): Hypomagnesemia (ED), Implantable Cardioverter Defibrillator (DC) Additional Instructions: As we discussed, call the cardiology clinic to have follow-up this week. Should any symptoms develop return to the emergency department read Referrals: Padma Lincoln MD [Primary Care Provider] - 1-2 days Viet Farmer MD [STAFF PHYSICIAN] - 1-2 days
[2022-09-04 15:02] LABS: Basophils % (A) 1 %; Eosinophils # (A) 0.2 k/uL (0-0.7); Eosinophils % (A) 3 %; HCT 42.5 % (39.0-53.0); HGB 14.6 gm/dL (13.0-17.5); Lymphocytes # (A) 1.3 k/uL (1.0-4.8); Lymphocytes % (A) 20 %; MCH 30.2 pg (25.0-35.0); MCHC 34.4 g/dL (31.0-37.0); MCV 87.6 fL (80.0-100.0); Mean Platelet Volume 7.1; Monocytes # (A) 0.3 k/uL (0-1.0); Monocytes % (A) 5 %; Neutrophils # (A) 4.4 k/uL (1.3-7.7); Neutrophils % (A) 70 %; Platelet Count 156 k/uL (150-450); Poikilocytosis Slight; RBC 4.85 m/uL (4.30-5.90); RDW 13.5 % (11.5-15.5); WBC 6.3 k/uL (3.8-10.6)
[2022-09-04 15:11] LABS: INR 1.2 (<1.2); Partial Thromboplastin Time 25.7 sec (22.0-30.0); Prothrombin Time 12.5 sec (9.0-12.0)
[2022-09-04 15:29] LABS: ALT 16 U/L (4-49); AST 25 U/L (17-59); African American GFR (CKD) >90 (>60 ml/min/1.73 sqM); Alkaline Phosphatase 62 U/L (38-126); Anion Gap 8 mmol/L; Blood Urea Nitrogen 11 mg/dL (9-20); Calcium 9.2 mg/dL (8.4-10.2); Carbon Dioxide 28 mmol/L (22-30); Chloride 106 mmol/L (98-107); Glucose 74 mg/dL (74-99); Magnesium 1.3 mg/dL (1.6-2.3); Non-African American GFR(CKD) 79 (>60 ml/min/1.73 sqM); Sodium 142 mmol/L (137-145); Total Bilirubin 1.2 mg/dL (0.2-1.3); Total Protein 6.4 g/dL (6.3-8.2)
--- NOTE | 2022-09-04 15:33 | XR ---
EXAMINATION TYPE: XR chest 2V DATE OF EXAM: 09/04/2022 COMPARISON: 05/22/2020 INDICATION: Chest pain, defibrillator went off TECHNIQUE: Frontal and lateral views of the chest are obtained. FINDINGS: The heart size is normal. The pulmonary vasculature is normal. The lungs are clear. IMPRESSION: 1. No acute pulmonary process.
[2022-09-04 16:22] LABS: Potassium 3.6 mmol/L (3.5-5.1)
[2022-09-04] MEDS: MAGNESIUM SULFATE-D5W PMX 1 GM in DEXTROSE/WATER 1 100ML.BAG IVPB SCH ×2 (16:58→18:13)
[2022-09-04 19:40] VITALS: BP 145/72; PULSE 71; RESP 16
== END 2022-09-04 19:30 | disposition home or self-care (01) ==
LOC: EC 13:41
DX: E83.42 Hypomagnesemia (principal); Z45.02 Encounter for adjustment and management of automatic implantable cardiac defibrillator; E78.5 Hyperlipidemia, unspecified; I11.0 Hypertensive heart disease with heart failure; I25.10 Atherosclerotic heart disease of native coronary artery without angina pectoris; I25.2 Old myocardial infarction; I48.91 Unspecified atrial fibrillation; I50.9 Heart failure, unspecified; J44.9 Chronic obstructive pulmonary disease, unspecified; K21.9 Gastro-esophageal reflux disease without esophagitis; M19.90 Unspecified osteoarthritis, unspecified site; Z79.01 Long term (current) use of anticoagulants; Z79.51 Long term (current) use of inhaled steroids; Z79.82 Long term (current) use of aspirin; Z79.899 Other long term (current) drug therapy; Z86.16 Personal history of COVID-19; Z87.891 Personal history of nicotine dependence; Z88.0 Allergy status to penicillin
CPT/HCPCS: 36415; 93005; 80053; 84443; 83735; 84484; 85025; 85610; 85730; 71046; 99284; 96365; J3475

== ENCOUNTER → 2022-10-24 | Outpatient (CLI) | payer OTHER, MEDICARE ==
[2022-10-24 20:39] LABS: Blood Urea Nitrogen 12.4 mg/dL (9.0-27.0); Carbon Dioxide 28.6 mmol/L (21.6-31.8); Chloride 108 mmol/L (96-109); Potassium 4.8 mmol/L (3.5-5.5); Sodium 145 mmol/L (135-145)
[2022-10-24 21:14] LABS: HGB 13.3 d/dL (12.0-15.0); MCHC 31.7 d/dL (32.0-37.0); MCV 91.5 FL (80.0-97.0); Mean Platelet Volume 9.6 FL (9.5-12.2); NRBC Per 100 WBC 0 X 10*3/uL (0.00-0.01); Platelet Count 139 X 10*3/uL (140-440); RBC 4.59 X 10*6/uL (4.40-5.60); RDW 13.4 % (11.5-14.5); WBC 4.76 X 10*3/uL (4.50-10.00)
== END | disposition home or self-care (01) ==
LOC: LABPAT 12:18
PROVIDERS: ATTEND Internal Medicine Clinical Cardiac Electrophysiology
DX: Z01.812 Encounter for preprocedural laboratory examination (principal); I47.29 Other ventricular tachycardia
CPT/HCPCS: 80051; 82565; 84520; 85027

== ENCOUNTER 2022-11-01 05:59 | Day surgery (SDC) | payer MEDICARE, OTHER ==
[2022-11-01] MEDS ORDERED: LACTATED RINGERS 1,000 ML IV SCH (06:03)
[2022-11-01] MEDS ORDERED: SODIUM CHLORIDE 0.9% 1,000 ML IV SCH (06:03)
[2022-11-01] MEDS ORDERED: SODIUM CHLORIDE 0.9% 500 ML 500 ML IV ONE (06:13)
[2022-11-01 06:29] VITALS: RESP 16; TEMP 97.8
[2022-11-01] MEDS ORDERED: MIDAZOLAM 2 MG/2 ML VIAL ONE (07:26)
[2022-11-01] MEDS ORDERED: fentaNYL (PF) 50 MCG/ML 2 ML AMP ONE (07:26)
[2022-11-01] MEDS ORDERED: PHENYLEPHRINE-0.9% NACL SYG 1,000 MCG/10 ML SYRINGE ONE (07:26)
[2022-11-01] MEDS ORDERED: PROPOFOL 10 MG/ML 20 ML VIAL IV ONE (07:26)
[2022-11-01] MEDS ORDERED: IOPAMIDOL-370 100ML BTL INJ ONE ×2 (08:17)
--- NOTE | 2022-11-01 08:30 | P.HPCAR ---
History of Present Illness This is Dr. Farmer dictating an H/P on this patient The patient was interviewed and examined IMPRESSION / ASSESSMENT: CAD status post coronary stenting Ischemic cardiomyopathy status post single chamber ICD and left ventricular ejection fraction 45% Paroxysmal atrial fibrillation on sotalol and developed polymorphic VT, possible torsade Sotalol was discontinued Patient brought in for noninvasive stimulation to assess for inducibility for monomorphic VT/VF He continues to complain of dizzy spells unit in the sitting but denies any palpitations PLAN: Proceed with noninvasive program stimulation to look for inducible VT/VF Left upper extremity venogram. Patient is single chamber ICD and has mild sinus bradycardia, tolerating low-dose beta blockers at this time ICD for a monitor zone to evaluate for slow VT HPI Patient continues to experience dizzy spells intermittently supple. No loss of consciousness no further episodes of ICD shocks of therapies No chest discomfort no undue shortness of breath ROS: No fever chills or rigors, no cough, phlegm or expectoration, no nausea, vomiting or diarrhea, no hematuria, dysuria, no musculoskeletal complaints, no strokes or seizures, no skin lesions. EXAMINATION: Afebrile 97.8F, pulse rate in the 60s, blood pressure 136/61 mmHg line breath sounds are reduced bilaterally but there are no rhonchi no crackles Normal heart sounds no murmurs or gallops or rub Extremities are warm REVIEW OF LABS, ECG & MEDICAL DATA medications include ELIQUIS, atorvastatin, aspirin, spironolactone, ENTRESTO, metoprolol succinate 25 mg twice daily, magnesium Sotalol has been discontinued Physical Exam Vitals: Vital Signs Temp Pulse Resp BP Pulse Ox 11/01/22 06:27 97.8 F 68 16 136/61 97 Intake and Output 10/31/22 11/01/22 11/01/22 22:59 06:59 14:59 Intake Total 100 Balance 100 Intake: IV 100 Other: Weight 69.853 kg Past Medical History Past Medical History: Atrial Fibrillation, Blood Disorder, Coronary Artery Disease (CAD), Cancer, Heart Failure, COPD, CVA/TIA, GERD/Reflux, Hyperlipidemia, Hypertension, Myocardial Infarction (HI), Osteoarthritis (OA) Additional Past Medical History / Comment(s): See Dr. Farmer's H&P. Autoimmune disorder with hx. splenomegaly/hemolytic anemia-stable currently, history of ventricular tachycardia, cardiomyopathy, Christensen's esophagus, skin cancer with removal, recurrent L hydrocele/ganglion cyst, covid pnemonia May 05, 2020 and had mild stroke/loss of peripheral vision, agent orange exposure. Last Myocardial Infarction Date:: 2015 History of Any Multi-Drug Resistant Organisms: None Reported Past Surgical History: AICD, Heart Catheterization, Heart Catheterization With Stent, Pacemaker Additional Past Surgical History / Comment(s): PT STATED HE HAS A TOTAL OF 7 STENTS, colonoscopy, sinus sx, bilateral cataract removal with lens implants, L hydrocele surgeries Past Anesthesia/Blood Transfusion Reactions: No Reported Reaction Additional Past Anesthesia/Blood Transfusion Reaction / Comment(s): Pt has received blood transfusion without reaction. Date of Last Stent Placement:: 2015 Type of Cardiac Device: Permanent Pacemaker, AICD Device Placement Date:: 2014 Access [employer] Smoking Status: Former smoker - Past Family History Sister(s) Family Medical History: Cancer Additional Family Medical History / Comment(s): Colon CA. Father Family Medical History: Myocardial Infarction (HI) Additional Family Medical History / Comment(s): FATHER HAD MIs. Mother Family Medical History: Cancer Additional Family Medical History / Comment(s): COLON CANCER. Physical Examination Vital Signs Temp Pulse Resp BP Pulse Ox 11/01/22 06:27 97.8 F 68 16 136/61 97 Intake and Output 10/31/22 11/01/22 11/01/22 22:59 06:59 14:59 Intake Total 100 Balance 100 Intake: IV 100 Other: Weight 69.853 kg Results Current Medications Generic Name Dose Route Start Last Admin Trade Name Freq PRN Reason Stop Dose Admin Lactated Ringer's 1,000 mls @ 20 mls/hr 11/01/22 06:03 Lactated Ringers IV 12/01/22 06:04 .Q24H LYNDA Sodium Chloride 1,000 mls @ 20 mls/hr 11/01/22 06:03 Saline 0.9% IV 12/01/22 06:04 .Q24H LYNDA Intake and Output 10/31/22 11/01/22 11/01/22 22:59 06:59 14:59 Intake Total 100 Balance 100 Intake: IV 100 Other: Weight 69.853 kg
--- NOTE | 2022-11-01 08:38 | P.EPPROC ---
- EP Procedure Note Electrophysiology Procedure Note: Diagnosis Polymorphic VT/possible torsade on sotalol ICD shock Known ischemic cardiomyopathy, ejection fraction 45% Old MS, coronary stenting, CAD Stable congestive heart failure class II on guideline directed medical treatment Sotalol has been discontinued Patient brought in to check for inducibility for VT/VF off sotalol Sinus bradycardia, patient is a single chamber [employer] ICD Procedure 1: Noninvasive program stimulation Under conscious sedation ventricular stimulation was performed Ventricular extra stimulation after double extrastimuli, including long short sequence is performed Intermittently the patient had nonsustained PMVT but no sustained episodes of either VT or VF Burst stimulation performed, no arrhythmias Procedure 2: Single chamber ICD interrogation with reprogramming R waves 9.9 mV, pacing impedance 383 ohms and pacing threshold 0.8 V at 0.5 ms, Shocking impedance 73 ohms After noninvasive program stimulation, ICD was reprogrammed A monitor zone from 150-175 beats a minute, to detect 12 seconds of nonsustained VT Patient has episodes of dizziness but we have not documented any arrhythmias so far but he was programmed according to the [facility]. The first zone started him on 75 Hence this was reprogrammed to provide a monitor zone and to therapy zones VT therapies zone from 175 beats a minute VF zone 220 beats a minute Appropriate antitachycardia pacing cardioversion and defibrillation programmed Procedure 3: Cinefluoroscopy and left upper extremity venogram Cinefluoroscopy of the leads revealed a single coil lead screwed in the mid RV septum No fractures or breaks 10 mL IV dye injected into the left arm Patent left subclavian vein At this time the patient has enough battery life for greater than 7-8 years However if she requires high doses of beta blockers and becomes bradycardic, an upgrade may be required at that point Suggest No more sotalol Continue metoprolol succinate instead Continue all other heart failure and anti-atherosclerotic medications
[2022-11-01 09:32] VITALS: BP 120/60; PULSE 58
== END 2022-11-01 09:33 | disposition home or self-care (01) ==
LOC: CATHEP 05:59
PROVIDERS: ATTEND Internal Medicine Clinical Cardiac Electrophysiology
DX: I25.5 Ischemic cardiomyopathy (principal); I25.10 Atherosclerotic heart disease of native coronary artery without angina pectoris; I25.2 Old myocardial infarction; I50.9 Heart failure, unspecified; I48.0 Paroxysmal atrial fibrillation; Z95.5 Presence of coronary angioplasty implant and graft
CPT/HCPCS: 93642; J2250; J3010; J2370; J2704; Q9967

== ENCOUNTER → 2023-12-19 | Outpatient (CLI) | payer MEDICARE ==
[2023-12-19 18:32] LABS: Blood Urea Nitrogen 20.8 mg/dL (9.0-27.0); Calcium 9.3 mg/dL (8.7-10.3); Chloride 108 mmol/L (96-109); Glucose 142 mg/dL (70-110); Potassium 4.1 mmol/L (3.5-5.5); Sodium 143 mmol/L (135-145)
== END | disposition home or self-care (01) ==
LOC: LABWHC1 14:19
PROVIDERS: ATTEND Internal Medicine Clinical Cardiac Electrophysiology
DX: I10 Essential (primary) hypertension (principal)
CPT/HCPCS: 36415; 80048

== ENCOUNTER → 2024-08-18 | Outpatient (CLI) | payer MEDICARE ==
[2024-08-18 14:53] LABS: Blood Urea Nitrogen 22.8 mg/dL (9.0-27.0); Carbon Dioxide 27.4 mmol/L (21.6-31.8); Chloride 104 mmol/L (96-109); Potassium 4.3 mmol/L (3.5-5.5); Sodium 140 mmol/L (135-145)
[2024-08-18 15:52] LABS: HCT 43.1 % (39.6-50.0); HGB 13.4 g/dL (13.0-17.0); MCH 27.8 pg (27.0-32.0); MCHC 31.1 g/dL (32.0-37.0); MCV 89.4 FL (80.0-97.0); Mean Platelet Volume 10.3 FL (9.5-12.2); NRBC Per 100 WBC 0 X 10*3/uL (0.00-0.01); Platelet Count 181 X 10*3/uL (140-440); RBC 4.82 X 10*6/uL (4.40-5.60); RDW 14.4 % (11.5-14.5); WBC 6.18 X 10*3/uL (4.50-10.00)
== END | disposition home or self-care (01) ==
LOC: LABPAT 10:29
PROVIDERS: ATTEND Internal Medicine Clinical Cardiac Electrophysiology
DX: Z01.812 Encounter for preprocedural laboratory examination (principal); I47.29 Other ventricular tachycardia; I48.0 Paroxysmal atrial fibrillation
CPT/HCPCS: 80051; 82565; 84520; 85027

== ENCOUNTER → 2024-08-21 | Day surgery (SDC) | payer MEDICARE ==
[2024-08-20 08:36] VITALS: BMI 21.6
[~2024-08-21] MED LIST changes: +KETAMINE HCL IN 0.9 % NACL 50 MG/5 ML SYRINGE ONE; -LACTATED RINGERS 1,000 ML IV SCH; +MIDAZOLAM 2 MG/2 ML VIAL ONE; +PROPOFOL 10 MG/ML 20 ML VIAL IV ONE; +SODIUM CHLORIDE 0.9% 1,000 ML IV SCH; +fentaNYL (PF) 50 MCG/ML 2 ML AMP ONE
[2024-08-21] MEDS: IV FLUID CONTINUATION 1,000 ML IV ONE (08:30)
[2024-08-21] MEDS: SODIUM CHLORIDE 0.9% 1,000 ML IV SCH (08:41)
[2024-08-21 08:48] VITALS: TEMP 97
[2024-08-21] MEDS: IOPAMIDOL-370 100ML BTL INJ ONE (10:57)
--- NOTE | 2024-08-21 10:59 | P.EPPROC ---
- EP Procedure Note Electrophysiology Procedure Note: Indication for the procedure Recurrent fast VT despite oral amiodarone Ischemic cardiomyopathy Sinus bradycardia 52 beats a minute on guideline directed medical treatment Final diagnosis Inducible VT with a cycle length of approximately 200 ms, despite oral amiodarone Morphology: Right bundle branch block morphology, deep S waves V2-V6, S waves inferior leads and negative QRS in lead I ICD device interrogated and reprogrammed Details [employer] single-chamber ICD was interrogated. Thresholds excellent R waves 8 mV pacing impedance 392 g and pacing threshold 0.9 V at 0.5 ms Baseline EKG shows a narrow QRS VA interval 185 ms sinus cycle length 1330 ms Noninvasive programmed stimulation performed Inducible long episodes of VT with a cycle length around 300 ms with double extrastimuli 600/340/340 and 4/310/310-induced VT Device was then reprogrammed. VT and VF therapies were reprogrammed accordingly Plan Jardiance 10 mg p.o. daily for preventing progression of chronic kidney disease. Patient's creatinine is 1.7 [facility] Add mexiletine 150 mg 3 times a day for medical management of VT, in addition to amiodarone. [facility] but the [facility] not [facility] Continue Eliquis Entresto atorvastatin aspirin spironolactone metoprolol succinate at a higher dose of 75 mg twice daily amiodarone 200 mg daily Synthroid Will schedule VT ablation. Discussed with family Thereafter upgrade to a dual-chamber ICD and further maximization of beta- blockers
--- NOTE | 2024-08-21 11:01 | P.PRLE ---
RE: Pj Li Indication for the procedure/noninvasive programmed stimulation Recurrent fast VT despite oral amiodarone Ischemic cardiomyopathy Sinus bradycardia 52 beats a minute on guideline directed medical treatment Final diagnosis Inducible VT with a cycle length of approximately 200 ms, despite oral amiodarone ICD device interrogated and reprogrammed Plan Add Jardiance 10 mg p.o. daily for preventing progression of chronic kidney disease. Patient's creatinine is 1.7 [facility] not [facility] it yet Add mexiletine 150 mg 3 times a day for medical management of VT, in addition to amiodarone. I had [facility] this [facility] but the patient has not received it Continue Eliquis Entresto atorvastatin aspirin spironolactone metoprolol succinate at a higher dose of 75 mg twice daily amiodarone 200 mg daily Synthroid Follow-up BMP after 2 to 3 weeks of starting Jardiance Will schedule VT ablation. Discussed with family Thereafter upgrade to a dual-chamber ICD and further maximization of beta-blockers
--- NOTE | 2024-08-21 11:05 | P.EPPROC ---
- EP Procedure Note Electrophysiology Procedure Note: Indication of procedure Planning upgrade to a dual-chamber ICD. Patient has an single-chamber ICD in situ and has sinus bradycardia 52 beats a minute and requires further maximization of his heart failure medications namely metoprolol Final diagnosis Patent left subclavian and axillary venous system Cinefluoroscopy did not reveal any fractures or breaks in the single-chamber ICD lead Cinefluoroscopy of the leads reveals a single coil ICD lead screwed in the RV septum chronically No fractures or breaks Left upper extremity venogram reveals a patent left axillary and subclavian venous system and innominate system Plan Following VT ablation we will schedule for upgrade to a dual-chamber ICD
[2024-08-21 18:32] VITALS: RESP 16
[2024-08-21 18:33] VITALS: BP 121/58; PULSE 52
== END ==
LOC: CATHEP 07:51
PROVIDERS: ATTEND Internal Medicine Clinical Cardiac Electrophysiology
DX: I25.10 Atherosclerotic heart disease of native coronary artery without angina pectoris (principal); I48.91 Unspecified atrial fibrillation; I25.5 Ischemic cardiomyopathy; I45.10 Unspecified right bundle-branch block; I67.9 Cerebrovascular disease, unspecified; I13.0 Hypertensive heart and chronic kidney disease with heart failure and stage 1 through stage 4 chronic kidney disease, or unspecified chronic kidney disease; N18.1 Chronic kidney disease, stage 1; I50.9 Heart failure, unspecified; K21.9 Gastro-esophageal reflux disease without esophagitis; E78.5 Hyperlipidemia, unspecified; F17.210 Nicotine dependence, cigarettes, uncomplicated; E11.9 Type 2 diabetes mellitus without complications; Z95.810 Presence of automatic (implantable) cardiac defibrillator; Z88.0 Allergy status to penicillin; Z79.84 Long term (current) use of oral hypoglycemic drugs; Z79.890 Hormone replacement therapy; Z79.01 Long term (current) use of anticoagulants; Z79.899 Other long term (current) drug therapy
CPT/HCPCS: 36005; 93642; 75820; J2250; J3010; J2704; Q9967

== ENCOUNTER 2024-09-10 11:51 | Day surgery (SDC) | payer MEDICARE, OTHER ==
[2024-09-10] MEDS: IV FLUID CONTINUATION 1,000 ML IV ONE (14:00)
[2024-09-10] MEDS: HEPARIN SODIUM,PORCINE 10,000 UNIT in SODIUM CHLORIDE 0.9% 1,000 ML IRRIGATION ONE (14:07)
[2024-09-10] MEDS ORDERED: PHENYLEPHRINE 10 MG/ML VIAL ONE (14:07)
[2024-09-10] MEDS ORDERED: FUROSEMIDE 10 MG/ML 2 ML VIAL ONE (14:07)
[2024-09-10] MEDS ORDERED: HEPARIN SODIUM,PORCINE 10,000 UNIT/ML 1 ML VIAL ONE (14:07)
[2024-09-10] MEDS ORDERED: KETAMINE HCL IN 0.9 % NACL 50 MG/5 ML SYRINGE ONE (14:07)
[2024-09-10] MEDS ORDERED: PROPOFOL 10 MG/ML 20 ML VIAL IV ONE (14:07)
[2024-09-10] MEDS ORDERED: fentaNYL (PF) 50 MCG/ML 2 ML AMP ONE (14:07)
[2024-09-10] MEDS ORDERED: HEPARIN SODIUM,PORCINE 5,000 UNIT/ML 1 ML VIAL ONE (14:07)
[2024-09-10] MEDS ORDERED: ATROPINE SULFATE 0.1 MG/ML 10ML SYRINGE ONE (14:07)
[2024-09-10] MEDS ORDERED: MIDAZOLAM 2 MG/2 ML VIAL ONE (14:07)
[2024-09-10] MEDS: HEPARIN SOD,PORK IN 0.45% NACL 25,000 UNIT in 0.45% NACL 1 250ML.BAG IV ONE (14:30)
[2024-09-10] MEDS: ceFAZolin 2 GM in DEXTROSE 5% IN WATER 50 ML IVPB ONE (14:42)
[2024-09-10] MEDS: LIDOCAINE 1% INJ 10MG/ML (20 ML MDV) SQ ONE ×2 (14:45→14:50)
[2024-09-10] MEDS: HEPARIN SODIUM (1,000 UNIT/ML) 1,000 UNIT in SODIUM CHLORIDE 0.9% 1,000 ML IRRIGATION ONE (14:45)
[2024-09-10] MEDS: LIDOCAINE 2% URO-JET JELLY 5 ML KIT URETHRAL ONE (18:10)
[2024-09-10] MEDS ORDERED: ACETAMINOPHEN TAB 325 MG TAB PO PRN (18:36)
--- NOTE | 2024-09-10 18:49 | P.EPPROC ---
- EP Procedure Note Electrophysiology Procedure Note: Diagnosis: Fast VT with near syncope on multiple occasions requiring ICD therapies Easily inducible VT with double extrastimuli despite oral amiodarone and mexiletine, add noninvasive programmed stimulation Inferior lateral-apical exit of VT Single-chamber [employer] ICD, sinus bradycardia Ischemic cardiomyopathy, CHF class II on guideline directed medical treatment Final diagnosis Large inferior scar, voltage mapping to delineate scar, high-output pacing to delineate electrically unacceptable scar tissue Large, long channel/isthmus between 2 scars in the inferior wall with a likely septal entrance and apical lateral exit Multiple exits noted along the distal lateral inferior wall and apex Scar homogenization along the septal and lateral and apical margins as well as within the scar and areas of electrical excitability/narrow isthmus VT noninducible with double extrastimuli thereafter Single-chamber ICD interrogated and reprogrammed, stable sensing and impedance of the ICD lead Sinus bradycardia Plan Stop mexiletine, continue amiodarone 200 mg p.o. daily and later on reduce to 100 mg p.o. daily Upgrade to a dual-chamber ICD after 6 weeks and maximize metoprolol thereafter Continue metoprolol long-acting Continue anticoagulation with Eliquis Details Patient was brought to the EP lab in a fasting state. Written informed consent was obtained prior to the procedure. Conscious sedation provided. Single- chamber ICD interrogated. Baseline lead impedance established and device therapies turned off. At the end of the procedure lead impedances and sensing stable and tachycardia therapies reprogrammed and turned on Venous sheaths placed in the right and left femoral veins. Transseptal, transmitral approach to the left ventricle Coronary sinus catheter placed for atrial pacing during the procedure. Since the patient was fairly bradycardic in the 40s Intracardiac echo catheter placed. Reduced LV systolic function with inferior akinesis noted Inferior scar delineated on intracardiac echo Left and right transseptal catheterization performed RA pressure 8/5/1 mmHg, LA pressures 8/-4/1 mmHg MS interval 194 ms, QRS 133 ms Transseptal catheterization performed. Heparin administered and kept greater than 300-325 seconds Transmitral access into the left ventricle. VISIGO sheath used. Penta ray employed Very large LV cavity, very large inferior wall scar extending from the base to the apex 1 large scar and a narrower septal scar with a channel/isthmus in between The large scar with elevated voltage mapping. Following that high-output pacing was performed and the scar to delineate any micro channels After identification of channels within the isthmus and delineation of the large isthmus with a septal entrance apical lateral/inferior exit, based on VT morphology RF ablation with scar missionaries physician performed The scar was ablated septally, across the isthmus between the 2 scars and the apex and then along the lateral aspect of the scar. Ablation was performed within the micro channels and areas of capture within the scar After complete scar homogenization EP study with LV pacing was performed and the tachycardia could not be induced Patient Toller procedure well without any acute complications. Heparin discontinued. Venous sheaths were removed and device closure applied IV Lasix administered Patient tolerated procedure well without any acute complications Single-chamber ICD reprogrammed after reinterrogation
[2024-09-10] MEDS: ACETAMINOPHEN IV (For NPO) 1,000 MG in EMPTY BAG 1 BAG IVPB ONE (19:50)
[2024-09-10] MEDS: APIXABAN 5 MG TAB PO SCH (21:20)
[2024-09-10] MEDS: METOPROLOL SUCCINATE (ER) 25 MG TAB.ER.24H PO SCH (21:20)
[2024-09-10] MEDS: SACUBITRIL/VALSARTAN 24 MG-26 MG TABLET PO SCH (21:20)
[2024-09-10] MEDS: SYMBICORT 80-4.5 MCG INHALER INHALATION SCH (21:55)
[2024-09-10] MEDS: SODIUM CHLORIDE 0.9% 1,000 ML IV SCH (22:18)
[2024-09-11] MEDS: PANTOPRAZOLE 40 MG TABLET PO SCH (06:11)
[2024-09-11] MEDS: LEVOTHYROXINE 75 MCG TAB PO SCH (06:11)
[2024-09-11 07:48] VITALS: BP 93/53; PULSE 51; RESP 16; TEMP 97.7
[2024-09-11] MEDS ORDERED: SPIRONOLACTONE 25 MG TAB PO SCH (09:00)
[2024-09-11] MEDS ORDERED: ATORVASTATIN 80 MG TAB PO SCH (09:00)
[2024-09-11] MEDS ORDERED: ASPIRIN 81 MG PO SCH (09:00)
[2024-09-11] MEDS ORDERED: AMIODARONE 200 MG TAB PO SCH (09:00)
--- NOTE | 2024-09-11 11:17 | DS ---
DISCHARGE SUMMARY Mr. Li is a 78-year-old male patient, who had sustained monomorphic VT associated with presyncope. He received ICD therapies for this. This VT has been easily inducible on a combination of amiodarone and mexiletine. Yesterday, he underwent successful mapping of his left ventricle. The left ventricle was mapped in detail and the inferior scar was delineated, successful VT ablation of all isthmus within and associated with that scar were ablated successfully. Following that, the EP study could not induce any further VT. He will be discharged home today. On examination, his blood pressure is normal. Heart sounds are normal. Breath sounds are clear. Groins have healed well. All puncture sites were venous. We employed transseptal, transmitral approach to access the left ventricle. PLAN: Continue Eliquis and he must not interrupt Eliquis for the first 4 weeks for any temporary reason. Stop mexiletine. Continue amiodarone and beta blockers and all other heart failure and CAD medications. Follow up in the office in 1 week for groin check and device check and then follow up with me in about 4 weeks. After 6 weeks, we will upgrade this ICD to a dual-chamber ICD for atrial pacing since the patient has underlying sick sinus syndrome with sinus bradycardia so that we can maximize his beta blockers further. At that time, I will reduce the dose of amiodarone to 100 mg p.o. daily. This was explained to the patient. He has already had a venogram, which shows a patent subclavian vein. MMODL / IJN: [id number] /
== END 2024-09-11 10:32 | disposition home or self-care (01) ==
LOC: CATHEP 11:51 → 6NMEDSUR 18:09 → CATHEP 09-11 10:32
PROVIDERS: ATTEND Internal Medicine Clinical Cardiac Electrophysiology
DX: I25.10 Atherosclerotic heart disease of native coronary artery without angina pectoris (principal); I25.5 Ischemic cardiomyopathy; I50.89 Other heart failure; Z45.02 Encounter for adjustment and management of automatic implantable cardiac defibrillator; Z88.0 Allergy status to penicillin; Z79.01 Long term (current) use of anticoagulants
CPT/HCPCS: 94640; 93462; 93662; 93654; 86900; 86901; 86850; 86870; C1759; C1894; C1769 ×3; C1766; C1760 ×2; C1730; C1731; C1732; J1644 ×3; J0690; J2003; J0131

== ENCOUNTER → 2024-11-02 | Outpatient (CLI) | payer OTHER ==
[2024-11-02 18:26] LABS: HCT 39.3 % (39.6-50.0); HGB 12.2 g/dL (13.0-17.0); MCH 28.2 pg (27.0-32.0); Mean Platelet Volume 9.4 FL (9.5-12.2); NRBC Per 100 WBC 0 X 10*3/uL (0.00-0.01); Platelet Count 176 X 10*3/uL (140-440); RBC 4.32 X 10*6/uL (4.40-5.60); RDW 13.9 % (11.5-14.5); WBC 5.95 X 10*3/uL (4.50-10.00)
[2024-11-02 18:39] LABS: Blood Urea Nitrogen 27.4 mg/dL (9.0-27.0)
[2024-11-02 18:40] LABS: Carbon Dioxide 24.3 mmol/L (21.6-31.8); Chloride 107 mmol/L (96-109); Potassium 4.6 mmol/L (3.5-5.5); Sodium 142 mmol/L (135-145)
== END | disposition home or self-care (01) ==
LOC: LABPAT 14:15
PROVIDERS: ATTEND Internal Medicine Clinical Cardiac Electrophysiology
DX: Z01.812 Encounter for preprocedural laboratory examination (principal); I25.5 Ischemic cardiomyopathy; I47.29 Other ventricular tachycardia; I49.5 Sick sinus syndrome
CPT/HCPCS: 80051; 82565; 84520; 85027

== ENCOUNTER → 2024-11-03 | Outpatient (CLI) | payer OTHER ==
--- NOTE | 2024-11-03 13:50 | US ---
EXAMINATION TYPE: US kidneys/renal and bladder DATE OF EXAM: 11/03/2024 COMPARISON: NONE CLINICAL INDICATION: Male, 78 years old with history of N18.32 CHR KIDNEY DISEASE; CKD 3 TECHNIQUE: Grayscale imaging of the bilateral kidneys and urinary bladder: FINDINGS: EXAM MEASUREMENTS: Right Kidney: 9.1 x 3.4 x 3.4 cm Left Kidney: 9.2 x 4.0 x 3.6 cm Right Kidney: No hydronephrosis or masses seen Left Kidney: No hydronephrosis or masses seen Bladder: Not fully distended. Bilateral Jets seen: no There is no evidence for hydronephrosis at this point in time. No nephrolithiasis is seen. No felicity s are identified. The urinary bladder is anechoic. IMPRESSION: 1. No acute renal ultrasound abnormality. [facility], , 11/03/2024 1:48 PM
== END | disposition home or self-care (01) ==
LOC: RADUSWWP 13:18
PROVIDERS: ATTEND Internal Medicine
DX: N18.32 Chronic kidney disease, stage 3b (principal)
CPT/HCPCS: 76770

== ENCOUNTER 2024-11-12 14:15 | Day surgery (SDC) | payer OTHER ==
[2024-11-10 08:40] VITALS: BMI 21.5
[~2024-11-12 14:15] MED LIST changes: -KETAMINE HCL IN 0.9 % NACL 50 MG/5 ML SYRINGE ONE; -MIDAZOLAM 2 MG/2 ML VIAL ONE; -PROPOFOL 10 MG/ML 20 ML VIAL IV ONE; -SODIUM CHLORIDE 0.9% 1,000 ML IV SCH; +VANCOMYCIN IV PER PHARMACY 1 EACH MISC MISCELLANE PRN; -fentaNYL (PF) 50 MCG/ML 2 ML AMP ONE
[2024-11-12] MEDS: SODIUM CHLORIDE 0.9% 1,000 ML IV SCH (14:32)
[2024-11-12] MEDS: VANCOMYCIN 1,250 MG in SODIUM CHLORIDE 0.9% 250 ML IVPB ONE (14:47)
[2024-11-12] MEDS ORDERED: MIDAZOLAM 2 MG/2 ML VIAL ONE (16:25)
[2024-11-12] MEDS ORDERED: diphenhydrAMINE 50 MG/ML 1 ML VIAL ONE (16:25)
[2024-11-12] MEDS ORDERED: fentaNYL (PF) 50 MCG/ML 2 ML AMP ONE (16:25)
[2024-11-12] MEDS: IV FLUID CONTINUATION 1,000 ML IV ONE (16:25)
[2024-11-12] MEDS: ceFAZolin 1 GM in SODIUM CHLORIDE 0.9% IRRIG BTL 250 ML IRRIGATION PRN (16:52)
[2024-11-12] MEDS: HEPARIN SODIUM,PORCINE (1 ML) 2,500 UNIT in SODIUM CHLORIDE 0.9% 250 ML IRRIGATION ONE (16:53)
[2024-11-12] MEDS: LIDOCAINE 1% INJ 10MG/ML (20 ML MDV) SQ ONE (17:05)
[2024-11-12] MEDS: ROPIVACAINE 5 MG/ML 30 ML VIAL MISCELLANE ONE (17:05)
[2024-11-12] MEDS ORDERED: ACETAMINOPHEN TAB 325 MG TAB PO PRN (18:10)
--- NOTE | 2024-11-12 18:19 | P.EPPROC ---
- EP Procedure Note Electrophysiology Procedure Note: Diagnosis Severe ischemic cardiomyopathy with sick sinus syndrome and severe bradycardia down to the 40s during the daytime Congestive heart failure class II History of VT status post ablation 3 months back. Patient has a single-chamber ICD [employer] in situ Procedure Upgrade to a dual-chamber ICD. New atrial lead implanted in the right atrial appendage Old single-chamber ICD generator explanted New dual-chamber ICD generator implanted successfully Details Patient was brought to the EP lab in a fasting state. Written informed consent was was obtained prior to the procedure. Under local anesthesia and conscious sedation, an incision was made directly over the device and carried down to the level of the generator. The [employer] single-chamber ICD generator was explanted. The lead was interrogated. Partial capsulectomy was performed and hemostasis was assured. Venous access was obtained and sheath was placed and wire this is a 52 cm Med[employer]onic lead model #5076 was implanted in the right atrial appendage. Excellent current of injury. There is a 52 cm lead. P waves 1.5 to 2 mV, pace impedance 722 ohms and pacing threshold 1 V at 0.4 ms In the mildly sedated state AV node Wenckebach block noted between atrial pacing rate of 90 to 100 bpm The lead was secured to the underlying pectoralis muscle using 2 nonabsorbable sutures and connected to the new ICD generator, dual-chamber ICD [employer]. The single coil Guidant lead was also connected R waves 5.5 mV pace impedance 380 ohms high-voltage impedance 66 ohms and pacing threshold 0.9 V at 0.4 ms Antibiotic pouch was placed. Device was secured to the underlying pectoralis muscle the wound was closed in 3 days and dressed per protocol Appropriate antitachycardia pacing cardioversion and defibrillation was programmed [id number], no rate responsiveness programmed Base rate 60 beats a minute Plan in the future try switching from metoprolol to carvedilol
[2024-11-12] MEDS: ALBUTEROL NEBULIZED 2.5 MG/3 ML INHALATION SCH (18:45)
[2024-11-12] MEDS: SACUBITRIL/VALSARTAN 24 MG-26 MG TABLET PO SCH (19:11)
[2024-11-12] MEDS: SODIUM CHLORIDE 0.9% 500 ML 250 ML IV ONE (19:15)
[2024-11-12] MEDS: METOPROLOL SUCCINATE (ER) 25 MG TAB.ER.24H PO SCH (22:13)
[2024-11-13] MEDS: LEVOTHYROXINE 75 MCG TAB PO SCH (06:35)
[2024-11-13] MEDS: PANTOPRAZOLE 40 MG TABLET PO SCH (06:35)
--- NOTE | 2024-11-13 08:07 | XR ---
EXAMINATION TYPE: XR chest 2V DATE OF EXAM: 11/13/2024 7:53 AM COMPARISON: 11/12/2023 CLINICAL INDICATION: Male, 78 years old with history of Lead placement check, , TECHNIQUE: Frontal and lateral views FINDINGS: Left anterior chest wall AICD generator with right atrial and right ventricular leads. Heart normal s ize. Mild hyperinflation. No consolidation or pleural effusion. No appreciable pneumothorax. Suspect chronic full-thickness bilateral rotator cuff tears. IMPRESSION: 1. Left atrial chest wall AICD generator with right atrial and right ventricular leads. 2. COPD. No appreciable pneumothorax. [facility], Workstation: [facility], 11/13/2024 8:05 AM
[2024-11-13] MEDS: ACETAMINOPHEN TAB 325 MG TAB PO PRN (08:43)
--- NOTE | 2024-11-13 09:49 | P.DS ---
Providers Date of admission: 11/12/24 Attending physician: Viet Farmer Primary care physician: Padma [facility] Hospital Course: The patient is a 78-year-old male who is currently admitted for biventricular ICD upgrade. Patient has history of ventricular tachycardia and ischemic cardiomyopathy, requiring ICD placement. Patient has developed severe bradycardia and therefore needed biventricular upgrade. Patient states he tolerated the procedure well. He does have some mild discomfort at his incision site. He states this improved with Tylenol. GENERAL: Well-appearing, well-nourished and in no acute distress. NECK: Supple without JVD or thyromegaly. LUNGS: Breath sounds clear to auscultation bilaterally. Respiration equal and unlabored. No wheezes, rales or rhonchi. HEART: Regular rate and rhythm without murmurs, rubs or gallops. S1 and S2 heard. Small hematoma noted over surgical site. Pressure dressing in place EXTREMITIES: Normal range of motion, no edema. No clubbing or cyanosis. Peripheral pulses intact and strong. TELEMETRY: Paced rhythm IMPRESSION: Severe ischemic cardiomyopathy Sick sinus syndrome Status post biventricular ICD upgrade History of VT, status post ablation PLAN: Continue Tylenol for pain management Recommend icing device site 15 minutes on 15 minutes off Patient to be discharged by noon Follow-up in office in 1 week I am dictating on behalf of Dr Viet Farmer's history/physical and assessment/plan. Plan - Discharge Summary Discharge Rx Participant: No New Discharge Prescriptions: Continue Omeprazole [PriLOSEC] 20 mg PO AC-BRKFST Folic Acid 1 mg PO QAM Nitroglycerin Sl Tabs [Nitrostat] 0.4 mg SUBLINGUAL Q5M PRN #25 tab PRN Reason: Chest Pain Albuterol Nebulized [Ventolin Nebulized] 2.5 mg INHALATION RT-BID Sacubitril/Valsartan [Entresto 24 mg-26 mg Tablet] 1 tab PO BID Atorvastatin [Lipitor] 80 mg PO DAILY Spironolactone [Aldactone] 25 mg PO QAM Apixaban [Eliquis] 5 mg PO BID Aspirin 81 mg PO QAM Cholecalciferol [Vitamin D3 (25 Mcg = 1000 Iu)] 100 mcg PO BID Metoprolol Succinate [Metoprolol Succinate ER] 75 mg PO BID Fluticasone Propion/Salmeterol [Wixela 250-50 Inhub] 2 inhalation PO BID Levothyroxine Sodium [Synthroid] 75 mcg PO DAILY Amiodarone [Cordarone] 200 mg PO DAILY Discharge Medication List Folic Acid 1 mg PO QAM 02/22/15 [History] Omeprazole [PriLOSEC] 20 mg PO AC-BRKFST 02/22/15 [History] Nitroglycerin Sl Tabs [Nitrostat] 0.4 mg SUBLINGUAL Q5M PRN #25 tab 02/25/15 [Rx] Albuterol Nebulized [Ventolin Nebulized] 2.5 mg INHALATION RT-BID 05/02/17 [History] Sacubitril/Valsartan [Entresto 24 mg-26 mg Tablet] 1 tab PO BID 08/07/18 [History] Atorvastatin [Lipitor] 80 mg PO DAILY 12/22/19 [History] Spironolactone [Aldactone] 25 mg PO QAM 12/22/19 [History] Apixaban [Eliquis] 5 mg PO BID 05/19/20 [History] Aspirin 81 mg PO QAM 05/19/20 [History] Cholecalciferol [Vitamin D3 (25 Mcg = 1000 Iu)] 100 mcg PO BID 09/04/22 [History] Metoprolol Succinate [Metoprolol Succinate ER] 75 mg PO BID 10/30/22 [History] Amiodarone [Cordarone] 200 mg PO DAILY 08/20/24 [History] Fluticasone Propion/Salmeterol [Wixela 250-50 Inhub] 2 inhalation PO BID [History] Levothyroxine Sodium [Synthroid] 75 mcg PO DAILY 08/20/24 [History] Follow up Appointment(s)/Referral(s): Viet Farmer MD [STAFF PHYSICIAN] - 11/19/24 4:00 pm (FOLLOW UP APPOINTMENT WITH THE DEVICE CLINIC IS MADE. ) Activity/Diet/Wound Care/Special Instructions: PATIENT EDUCATION MATERIAL Instructions following a heart rhythm device implant. 1. Keep dressing DRY for 5 DAYS. You may cover the area with Saran or Cling Wrap, prior to a shower. 2. The dressing will be removed in the [facility] at [facility]. Absorbable sutures were used to close the wound. 3. Avoid raising the left arm above the shoulder level. 4 week restriction 4. Avoid arm movements, like backscratching, rubbing the head, or pulling on a cord. 4 weeks restriction 5. Gentle range of motion movements of the shoulder, closest to the incision should be performed to avoid a frozen shoulder. (Pendulum exercises of the shoulder) 6. The opposite arm may be used freely. 7. Avoid driving for 7 days. 8. Avoid activities such as golfing, swimming, weed whacking, lifting more than 10 pounds weight, bowling, gymnastics and weight training/lifting. (6 weeks restriction) 9. Activities such as wood chopping with an axe, pull-ups in the gymnasium, power lifting, arc-welding, being close to home induction cooktops will always be a problem. 10. Arm sling is only a reminder not to raise the arm above the head. You do not need to keep the arm completely immobilized. Your free to move the arm and use it and for normal activities. In case of any problems, please call [facility] [place], @ [phone], Attention: Device Clinic Device clinic follow-up in 5 days Follow-up with primary warehouse team leader in 2-3 months Discharge Disposition: HOME SELF-CARE
[2024-11-13] MEDS: ACETAMINOPHEN IV (For NPO) 1,000 MG in EMPTY BAG 1 BAG IVPB ONE (10:49)
[2024-11-13] MEDS: ASPIRIN 81 MG PO SCH (10:51)
[2024-11-13] MEDS: AMIODARONE 200 MG TAB PO SCH (10:52)
[2024-11-13] MEDS: ATORVASTATIN 80 MG TAB PO SCH (10:54)
[2024-11-13] MEDS: SPIRONOLACTONE 25 MG TAB PO SCH (10:56)
[2024-11-13 20:15] VITALS: BP 129/53; PULSE 60; RESP 16; TEMP 97.8
== END 2024-11-13 13:00 | disposition home or self-care (01) ==
LOC: CATHEP 14:15 → 6NMEDSUR 18:08 → CATHEP 11-13 13:00
PROVIDERS: ATTEND Internal Medicine Clinical Cardiac Electrophysiology
DX: I48.0 Paroxysmal atrial fibrillation (principal); I25.5 Ischemic cardiomyopathy; I49.5 Sick sinus syndrome; J44.9 Chronic obstructive pulmonary disease, unspecified; I50.9 Heart failure, unspecified; I11.0 Hypertensive heart disease with heart failure; E78.5 Hyperlipidemia, unspecified; Z72.0 Tobacco use; Z95.810 Presence of automatic (implantable) cardiac defibrillator; Z45.02 Encounter for adjustment and management of automatic implantable cardiac defibrillator; Z98.890 Other specified postprocedural states; Z79.890 Hormone replacement therapy; Z79.01 Long term (current) use of anticoagulants; Z79.82 Long term (current) use of aspirin; Z79.899 Other long term (current) drug therapy
CPT/HCPCS: 94640; 33249; 33241; 84443; 71046; C1721; C1898; J3370; J1644; J0690; J2003; J2795

== ENCOUNTER 2024-11-19 07:53 | Observation (INO) | payer OTHER ==
[2024-11-19 08:24] LABS: Basophils # (A) 0.08 10*3/uL (0.00-0.10); Basophils % (A) 1.0 %; Eosinophils # (A) 0.55 10*3/uL (0.04-0.35); Eosinophils % (A) 7.0 %; HCT 41.1 % (39.6-50.0); HGB 13.3 g/dL (13.0-17.0); Lymphocytes # (A) 1.66 10*3/uL (0.90-5.00); Lymphocytes % (A) 21.1 %; MCH 28.4 pg (27.0-32.0); MCHC 32.4 g/dL (32.0-37.0); MCV 87.8 fL (80.0-97.0); Monocytes # (A) 0.69 10*3/uL (0.20-1.00); Monocytes % (A) 8.8 %; Neutrophils # (A) 4.85 10*3/uL (1.80-7.70); Neutrophils % (A) 61.8 %; Platelet Count 169 10*3/uL (140-440); RBC 4.68 10*6/uL (4.40-5.60); RDW 13.8 % (11.5-14.5); WBC 7.85 10*3/uL (4.50-10.00)
[2024-11-19] MEDS: ASPIRIN 81 MG PO STA (08:24)
[2024-11-19] MEDS: NITROGLYCERIN OINT 1 INCH/GM PACKET TOPICAL STA (08:25)
[2024-11-19 08:34] LABS: INR 1.0 (<1.2); Partial Thromboplastin Time 22.9 sec (22.0-30.0); Prothrombin Time 11.3 sec (10.0-12.5)
[2024-11-19 08:38] LABS: ALT 23 U/L (4-49); AST 25 U/L (17-59); African American GFR (CKD) 38 (>60 ml/min/1.73 sqM); Albumin 4.1 g/dL (3.5-5.0); Alkaline Phosphatase 96 U/L (38-126); Anion Gap 9 mmol/L; Blood Urea Nitrogen 28 mg/dL (9-20); Calcium 9.6 mg/dL (8.4-10.2); Carbon Dioxide 24 mmol/L (22-30); Chloride 109 mmol/L (98-107); Glucose 111 mg/dL (74-99); Magnesium 1.8 mg/dL (1.6-2.3); Non-African American GFR(CKD) 33 (>60 ml/min/1.73 sqM); Potassium 4.6 mmol/L (3.5-5.1); Sodium 142 mmol/L (137-145); Total Protein 6.3 g/dL (6.3-8.2)
--- NOTE | 2024-11-19 08:41 | ED ---
General Adult HPI - General Chief complaint: Chest Pain Stated complaint: chest pain Time Seen by Provider: 11/19/24 08:00 Source: patient, RN notes reviewed, old records reviewed Mode of arrival: ambulatory Limitations: no limitations - History of Present Illness Initial comments: This is a 78-year-old male who presents to the emergency department there is extensive cardiac history. Patient has 7 stents in the past. Patient comes in today complaining of chest pain for the last hour and a half. Patient states it radiates around his side to his back. Patient also states he had difficulty breathing associated with the chest pain. Patient did not take any of his nitro. Patient denies any diaphoretic episode. Patient denies any nausea vomiting. Patient denies any abdominal pain patient is any recent fever chills or cough. - Related Data Home Medications Medication Instructions Recorded Confirmed Folic Acid 1 mg PO QAM 02/22/15 11/12/24 Omeprazole [PriLOSEC] 20 mg PO AC-BRKFST 02/22/15 11/12/24 Albuterol Nebulized [Ventolin 2.5 mg INHALATION RT-BID 05/02/17 11/12/24 Nebulized] Sacubitril/Valsartan [Entresto 24 1 tab PO BID 08/07/18 11/12/24 mg-26 mg Tablet] Atorvastatin [Lipitor] 80 mg PO DAILY 12/22/19 11/12/24 Spironolactone [Aldactone] 25 mg PO QAM 12/22/19 11/12/24 Apixaban [Eliquis] 5 mg PO BID 05/19/20 11/10/24 Aspirin 81 mg PO QAM 05/19/20 11/12/24 Cholecalciferol [Vitamin D3 (25 100 mcg PO BID 09/04/22 11/12/24 Mcg = 1000 Iu)] Metoprolol Succinate [Metoprolol 75 mg PO BID 10/30/22 11/12/24 Succinate ER] Amiodarone [Cordarone] 200 mg PO DAILY 08/20/24 11/12/24 Fluticasone Propion/Salmeterol 2 inhalation PO BID 08/20/24 11/12/24 [Wixela 250-50 Inhub] Levothyroxine Sodium [Synthroid] 75 mcg PO DAILY 08/20/24 11/12/24 Previous Rx's Medication Instructions Recorded Nitroglycerin Sl Tabs [Nitrostat] 0.4 mg SUBLINGUAL Q5M PRN #25 tab 02/25/15 Allergies Allergy/AdvReac Type Severity Reaction Status Date / Time amoxicillin Allergy Rash/Hives Verified 11/19/24 07:57 Penicillins Allergy Rash/Hives Verified 11/19/24 07:57 Review of Systems ROS Statement: Those systems with pertinent positive or pertinent negative responses have been documented in the HPI. ROS Other: All systems not noted in ROS Statement are negative. Past Medical History Past Medical History: Chest Pain / Angina, Hypertension Additional Past Medical History / Comment(s): Autoimmune disorder with hx. 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 Past Anesthesia/Blood Transfusion Reactions: No Reported Reaction Date of Last Stent Placement:: 2015 Type of Cardiac Device: Permanent Pacemaker, AICD Device Placement Date:: 2014 SMRxT Past Psychological History: No Psychological Hx Reported Smoking Status: Former smoker Past Alcohol Use History: None Reported Past Drug Use History: None Reported - Past Family History Sister(s) Family Medical History: Cancer Additional Family Medical History / Comment(s): Colon CA. Father Family Medical History: Myocardial Infarction ([place]) Additional Family Medical History / Comment(s): FATHER HAD MIs. Mother Family Medical History: Cancer Additional Family Medical History / Comment(s): COLON CANCER. General Exam - General Exam Comments Initial Comments: GENERAL: Patient is well-developed and well-nourished. Patient is nontoxic and well- hydrated and is in mild distress. ENT: Neck is soft and supple. No significant lymphadenopathy is noted. Oropharynx is clear. Moist mucous membranes. Neck has full range of motion without eliciting any pain. EYES: The sclera were anicteric and conjunctiva were pink and moist. Extraocular movements were intact and pupils were equal round and reactive to light. E yelids were unremarkable. PULMONARY: Unlabored respirations. Good breath sounds bilaterally. No audible rales rhonchi or wheezing was noted. CARDIOVASCULAR: There is a regular rate and rhythm without any murmurs gallops or rubs. ABDOMEN: Soft and nontender with normal bowel sounds. SKIN: Skin is clear with no lesions or rashes and otherwise unremarkable. NEUROLOGIC: Patient is alert and oriented x3. Cranial nerves II through XII are grossly intact. Motor and sensory are also intact. Normal speech, volume and content. Symmetrical smile. MUSCULOSKELETAL: Normal extremities with adequate strength and full range of motion. LYMPHATICS: No significant lymphadenopathy is noted PSYCHIATRIC: Normal psychiatric evaluation. Limitations: no limitations Course Vital Signs 11/19/24 11/19/24 11/19/24 07:54 08:13 08:37 Temperature 97.6 F Pulse Rate 59 L 60 60 Respiratory 20 18 18 Rate Blood Pressure 153/60 151/74 114/56 O2 Sat by Pulse 97 100 99 Oximetry 11/19/24 11/19/24 08:55 09:06 Temperature Pulse Rate 60 60 Respiratory 18 16 Rate Blood Pressure 117/59 98/51 O2 Sat by Pulse 97 95 Oximetry Medical Decision Making - Medical Decision Making EKG is interpreted by myself. EKG shows an electronically paced rhythm at 60 bpm [place] interval is 244 QRS is 117 QT interval is 462 QTc is 464. Patient's EKG shows no ST segment elevation or depression Was pt. sent in by a medical professional or institution (, PA, VICE PRESIDENT CLIENT SERVICES, urgent care, hospital, or assisted...) When possible be specific @ -No Did you speak to anyone other than the patient for history (EMS, parent, family, police, friend...)? What history was obtained from this source @ -No Did you review nursing and triage notes (agree or disagree)? Why? @ -I reviewed and agree with nursing and triage notes Were old charts reviewed (outside hosp., previous admission, EMS record, old EKG, old radiological studies, urgent care reports/EKG's, assisted records)? Report findings @ -No old charts were reviewed Differential Diagnosis? @ -Differential Chest Pain: Stable Angina, Unstable Angina, STEMI, NSTEMI Aortic Dissection, Pneumothorax, Musculoskeletal, Esophageal Spasm GERD, Cholecystitis, Pancreatitis, Zoster, this is not meant to be an all-inclusive list. EKG interpreted by me (3pts min.). @ -As above X-rays interpreted by me (1pt min.). @ -Chest x-ray shows no acute abnormality CT interpreted by me (1pt min.). @ -None done U/S interpreted by me (1pt. min.). @ -None done What testing was considered but not performed or refused? (CT, X-rays, U/S, labs)? Why? @ -None What meds were considered but not given or refused? Why? @ -None Did you discuss the management of the patient with other professionals (professionals i.e. , PA, VICE PRESIDENT CLIENT SERVICES, lab, RT, psych nurse, social security benefits interviewer, biofuels manager, teacher, grants officer, upper caser)? Give summary @ -I spoke with Dr. Lincoln he agreed to admit the patient Was smoking cessation discussed for >3mins.? @ -No Was critical care preformed (if so, how long)? @ -No Were there social determinants of health that impacted care today? How? (Homelessness, low income, unemployed, alcoholism, drug addiction, transportation, low edu. Level, literacy, decrease access to med. care, intermediate, rehab)? @ -No Was there de-escalation of care discussed even if they declined (Discuss DNR or withdrawal of care, Hospice)? DNR status @ -No What co-morbidities impacted this encounter? (DM, HTN, Smoking, COPD, CAD, Cancer, CVA, ARF, Chemo, Hep., AIDS, mental health diagnosis, sleep apnea, morbid obesity)? @ -None Was patient admitted / discharged? Hospital course, mention meds given and route, prescriptions, significant lab abnormalities, going to OR and other pertinent info. @ -Nitroglycerin sublingual and it did help with his pain considerably. Patient's lab work came back within normal range x-ray came back within normal range. I spoke with Dr. Lincoln he agreed admit the patient admitted the patient wrote admitting orders and I consulted cardiology Undiagnosed new problem with uncertain prognosis? @ -No Drug Therapy requiring intensive monitoring for toxicity (Heparin, Nitro, Insulin, Cardizem)? @ -No Were any procedures done? @ -No Diagnosis/symptom? @ -Chest pain Acute, or Chronic, or Acute on Chronic? @ -Acute Uncomplicated (without systemic symptoms) or Complicated (systemic symptoms)? @ -Complicated Side effects of treatment? @ -No Exacerbation, Progression, or Severe Exacerbation? @ -No Poses a threat to life or bodily function? How? (Chest pain, [place], [place], pneumonia, PE, COPD, DKA, ARF, appy, cholecystitis, CVA, Diverticulitis, Homicidal, Suicidal, threat to staff... and all critical care pts) @ -Yes this could lead to an DE and endorgan dysfunction - Lab Data Result diagrams: 11/19/24 08:05 11/19/24 08:05 Lab Results 11/19/24 11/19/24 11/19/24 Range/Units 08:05 08:05 08:05 WBC 7.85 (4.50-10.00) 10*3/uL RBC 4.68 (4.40-5.60) 10*6/uL Hgb 13.3 (13.0-17.0) g/dL Hct 41.1 (39.6-50.0) % MCV 87.8 (80.0-97.0) fL MCH 28.4 (27.0-32.0) pg MCHC 32.4 (32.0-37.0) g/dL Plt Count 169 (140-440) 10*3/uL MPV 9.1 L (9.5-12.2) fL Immature Gran % (Auto) 0.3 % Neutrophils % 61.8 % Lymphocytes % 21.1 % Monocytes % 8.8 % Eosinophils % 7.0 % Basophils % 1.0 % Immature Gran # 0.02 (0.00-0.04) 10*3/uL Neutrophils # 4.85 (1.80-7.70) 10*3/uL Lymphocytes # 1.66 (0.90-5.00) 10*3/uL Monocytes # 0.69 (0.20-1.00) 10*3/uL Eosinophils # 0.55 H (0.04-0.35) 10*3/uL Basophils # 0.08 (0.00-0.10) 10*3/uL PT 11.3 (10.0-12.5) sec INR 1.0 (<1.2) APTT 22.9 (22.0-30.0) sec Sodium 142 (137-145) mmol/L Potassium 4.6 (3.5-5.1) mmol/L Chloride 109 H (98-107) mmol/L Carbon Dioxide 24 (22-30) mmol/L Anion Gap 9 mmol/L BUN 28 H (9-20) mg/dL Creatinine 1.94 H (0.66-1.25) mg/dL Est GFR (CKD-EPI)AfAm 38 (>60 ml/min/1.73 sqM) Est GFR (CKD-EPI)NonAf 33 (>60 ml/min/1.73 sqM) Glucose 111 H (74-99) mg/dL Calcium 9.6 (8.4-10.2) mg/dL Magnesium 1.8 (1.6-2.3) mg/dL Total Bilirubin 0.8 (0.2-1.3) mg/dL AST 25 (17-59) U/L ALT 23 (4-49) U/L Alkaline Phosphatase 96 (38-126) U/L Troponin I (0.000-0.034) ng/mL Total Protein 6.3 (6.3-8.2) g/dL Albumin 4.1 (3.5-5.0) g/dL 11/19/24 Range/Units 08:05 WBC (4.50-10.00) 10*3/uL RBC (4.40-5.60) 10*6/uL Hgb (13.0-17.0) g/dL Hct (39.6-50.0) % MCV (80.0-97.0) fL MCH (27.0-32.0) pg MCHC (32.0-37.0) g/dL Plt Count (140-440) 10*3/uL MPV (9.5-12.2) fL Immature Gran % (Auto) % Neutrophils % % Lymphocytes % % Monocytes % % Eosinophils % % Basophils % % Immature Gran # (0.00-0.04) 10*3/uL Neutrophils # (1.80-7.70) 10*3/uL Lymphocytes # (0.90-5.00) 10*3/uL Monocytes # (0.20-1.00) 10*3/uL Eosinophils # (0.04-0.35) 10*3/uL Basophils # (0.00-0.10) 10*3/uL PT (10.0-12.5) sec INR (<1.2) APTT (22.0-30.0) sec Sodium (137-145) mmol/L Potassium (3.5-5.1) mmol/L Chloride (98-107) mmol/L Carbon Dioxide (22-30) mmol/L Anion Gap mmol/L BUN (9-20) mg/dL Creatinine (0.66-1.25) mg/dL Est GFR (CKD-EPI)AfAm (>60 ml/min/1.73 sqM) Est GFR (CKD-EPI)NonAf (>60 ml/min/1.73 sqM) Glucose (74-99) mg/dL Calcium (8.4-10.2) mg/dL Magnesium (1.6-2.3) mg/dL Total Bilirubin (0.2-1.3) mg/dL AST (17-59) U/L ALT (4-49) U/L Alkaline Phosphatase (38-126) U/L Troponin I <0.012 (0.000-0.034) ng/mL Total Protein (6.3-8.2) g/dL Albumin (3.5-5.0) g/dL Disposition Clinical Impression: Chest pain Disposition: ADMITTED IP TO THIS [facility] Referrals: Padma Lincoln MD [Primary Care Provider] - 1-2 days Time of Disposition: 09:10
--- NOTE | 2024-11-19 08:43 | XR ---
EXAMINATION TYPE: XR chest 2V DATE OF EXAM: 11/19/2024 8:39 AM COMPARISON: Chest radiographs from 11/13/2024 TECHNIQUE: XR chest 2V Frontal and lateral views of the chest. CLINICAL INDICATION:Male, 78 years old with history of Chest Pain; FINDINGS: Lungs/Pleura: There is flattening of the diaphragm with increased lucency of the lungs. No evidence o f pneumothorax, pleural effusion or focal consolidation. Pulmonary vascularity: Unremarkable. Heart/mediastinum: Cardiomediastinal silhouette is unremarkable. Atherosclerotic calcifications are seen in the aorta. Two lead cardiac conduction device overlying the left hemithorax with lead tips pr ojecting over the right ventricle and right atrium. Musculoskeletal: No acute osseous pathology. Suspect chronic full-thickness bilateral rotator cuff te ars. IMPRESSION: 1. No acute cardiopulmonary disease process. 2. COPD changes. [facility], , 11/19/2024 8:40 AM
[2024-11-19] MEDS: NITROGLYCERIN SL TABS 0.4 MG TAB SUBLINGUAL STA (08:55)
[2024-11-19] MEDS ORDERED: NITROGLYCERIN SL TABS 0.4 MG TAB SUBLINGUAL PRN ×2 (10:53→12:22)
[2024-11-19] MEDS: AMIODARONE 200 MG TAB PO SCH (13:06)
[2024-11-19] MEDS: METOPROLOL SUCCINATE (ER) 25 MG TAB.ER.24H PO SCH (13:06)
[2024-11-19] MEDS: APIXABAN 5 MG TAB PO SCH (13:06)
[2024-11-19] MEDS: NITROGLYCERIN OINT 1 INCH/GM PACKET TOPICAL SCH (13:07)
--- NOTE | 2024-11-19 17:36 | P.HPIM ---
History of Present Illness H&P Date: 11/19/24 Chief Complaint: Chest pain HISTORY OF PRESENT ILLNESS: This is a 78-year-old male with a previous medical history significant for coronary artery disease status post PCI and stent placement back in April 25, 2015 with ischemic cardiomyopathy status post AICD implantation with generator exchange that was done about a week ago with Dr. Farmer, paroxysmal atrial fibrillation, mixed hyperlipidemia, COPD, vitamin D deficiency, GERD, autoimmune hemolytic anemia, Christensen's esophagus, CVA, enlarged prostate, patient woke up in the morning with a tight band around his chest all the way to the back associated with minimal shortness of breath, he did not take his nitroglycerin, he ended up coming to the emergency department for evaluation, he had a twelve-lead EKG did not show evidence of acute changes, his cardiac enzymes were negative, but because of the presentation and because of the history of ischemic cardiomyopathy and recent generator change he was admitted to hospital for evaluation by cardiology. REVIEW OF SYSTEMS: Constitutional: No documented fever, no chills, no night sweats. No weight change. No weakness, fatigue or lethargy. No daytime sleepiness. EENT: No headache. No blurred vision or double vision, no loss of vision. No loss of Hearing, no ringing in the ears, no dizziness. No nasal drainage or congestion. No epistaxis. No sore throat. Lungs: No shortness of breath, no cough, no sputum production. No wheezing. Reports dyspnea with activity. Cardiovascular: positive for chest pain, no lower extremity edema. No palpi tations. No paroxysmal nocturnal dyspnea. No orthopnea. No lightheadedness or dizziness. No syncopal episodes. Abdominal: Reports abdominal pain. No nausea, vomiting. No diarrhea. No constipation. No bloody or tarry stools reports loss of appetite. Genitourinary: No dysuria, increased frequency, urgency. No urinary retention. Musculoskeletal: No myalgias. No muscle weakness, no gait dysfunction, no frequent falls. No back pain. No neck pain. Integumentary: No wounds, no lesions. No rash or pruritus. No unusual bruising. No change in hair or nails. Neurologic: No aphasia. No facial droop. No change in mentation. No head injury. No headache. No paralysis. No paresthesia. Psychiatric: No depression. No anxiety. No mood swings. Endocrine: No abnormal blood sugars. No weight change. PAST MEDICAL HISTORY: Coronary artery disease status post PCI April 25, 2015 AICD implantation April 25, 2015 and generator exchange about a week ago October 2024 Mixed hyperlipidemia. Ischemic cardiomyopathy. GERD. Paroxysmal atrial fibrillation. COPD. Vitamin D deficiency. Christensen's esophagus. Autoimmune hemolytic anemia. Enlarged prostate. CVA. PAST SURGICAL HISTORY: Left heart catheterization with PCI 04/25/2015 AICD 04/25/2015 Generator exchange 11/06/2024 Cataract surgery x 2 Hydrocele repair. Colonoscopy 2019 Sinus surgery Left heart catheterization with PCI x 7 EGD 2015. SOCIAL HISTORY: Patient used to smoke about a pack a day since the age of 19 and quit about 25 years ago, he drinks socially, he denies any drug use or abuse, FAMILY HISTORY: Father at the age of 69 from heart disease, mother at age 67 from colon cancer, patient had 3 sisters 1 with colon cancer, patient has 2 sons and 2 daughters no major medical problems. PHYSICAL EXAMINATION: General: This is a 78-year-old male laying down in bed in no apparent distress HEENT: Head is atraumatic, normocephalic, pupils were equal round reactive to light and recommendation, extraocular muscle movement were intact, sclera nonicteric, conjunctivae were pale, mucous membranes of the mouth are somewhat dry. Neck: Supple, no JVP, normal carotid upstroke bilaterally, no lymphadenopathy. Chest: Decreased breath sounds at the bases, few rhonchi, no expiratory wheezes, no chest wall tenderness, no intercostal retractions. Heart: First heart sound is normal, second heart sounds normal there is systolic ejection murmur 2 over systolic in the left sternal border, there is a left AICD with a dressing in place. Abdomen: Soft, nontender, nondistended, positive bowel sounds. Extremities: There is no edema no calf tenderness DP +2 bilaterally. Neurologic examination: Patient is awake alert and oriented x3, cranial nerves II-12 appear grossly intact, muscle power were 5 out of 5 in upper extremities and 5 out of 5 in bilateral lower extremities, deep tendon reflexes normal bilaterally. ASSESSMENT AND PLAN: 1. Chest pain likely noncardiac in a patient with a prior history of CAD with ischemic cardiomyopathy with a recent AICD/generator exchange. Patient will have troponin x 3 so far the cardiac exams are negative, patient will be seen in consultation by cardiology will be kept in the hospital as an observation, hopefully will be discharged home in the next 24 hours after he is cleared by cardiology. 2. History of CAD with ischemic cardiomyopathy status post multiple PCI. Continue patient on metoprolol ER 75 mg orally twice every day, continue aspirin 81 mg once every day, as well as atorvastatin 80 mg once every day, patient will be kept off spironolactone as well as Entresto due to the hypotension for now. Continue amiodarone 200 mg orally once every day. 3. Mixed hyperlipidemia. Continue atorvastatin 80 mg once every day, monitor lipid panel, keep LDL 55-70. 4. Paroxysmal atrial fibrillation. Continue metoprolol ER 75 mg orally twice every day, continue Eliquis 5 mg orally twice every day for life. Continue amiodarone 200 mg once every day. 5. History of COPD. Continue patient on albuterol 2.5 mg nebulization 4 times every day, continue with Symbicort 160/4.5 mcg inhalation twice every day. 6. Hypothyroidism. Continue levothyroxine 75 mcg orally once every day monitor the patient thyroid function test. 7. History of Christensen's esophagus. Continue patient on pantoprazole 40 mg orally once every day. 8. History of CVA. Continue patient on aspirin 81 mg once every day, Eliquis 5 mg orally twice every day, atorvastatin 80 mg orally once every day for secondary stroke prevention. 9. Enlarged prostate. Monitor the patient for urinary retention. 10. DVT prophylaxis. Continue Eliquis 5 mg orally twice every day. 11. GI prophylaxis. Continue pantoprazole 40 mg once every day. 12. Observation. 13. Full code Past Medical History Past Medical History: Chest Pain / Angina, Hypertension Additional Past Medical History / Comment(s): Autoimmune disorder with hx. 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 vision loss, covid pnemonia May 05, 2020, scheduled to see dr keshia schmitt, see dr farmer's h &P Last Myocardial Infarction Date:: 1996 History of Any Multi-Drug Resistant Organisms: None Reported Past Surgical History: AICD, Heart Catheterization, Heart Catheterization With Stent Additional Past Surgical History / Comment(s): PT STATED HE HAS A TOTAL OF 7 STENTS, colonoscopy, sinus sx, bilateral cataract removal with lens implants, R hydrocele surgery Lft hydrocele/cyst, Defib. Past Anesthesia/Blood Transfusion Reactions: No Reported Reaction Date of Last Stent Placement:: 2015 Type of Cardiac Device: Permanent Pacemaker, AICD Device Placement Date:: 2014 Daz 3d Past Psychological History: No Psychological Hx Reported Smoking Status: Former smoker Past Alcohol Use History: None Reported Past Drug Use History: None Reported - Past Family History Sister(s) Family Medical History: Cancer Additional Family Medical History / Comment(s): Colon CA. Father Family Medical History: Myocardial Infarction ([place]) Additional Family Medical History / Comment(s): FATHER HAD MIs. Mother Family Medical History: Cancer Additional Family Medical History / Comment(s): COLON CANCER. Medications and Allergies Home Medications Medication Instructions Recorded Confirmed Type Folic Acid 1 mg PO DAILY 02/22/15 11/19/24 History Omeprazole [PriLOSEC] 20 mg PO AC-BRKFST 02/22/15 11/19/24 History Albuterol Nebulized [Ventolin 2.5 mg INHALATION RT-BID 05/02/17 11/19/24 History Nebulized] Sacubitril/Valsartan [Entresto 24 1 tab PO BID 08/07/18 11/19/24 History mg-26 mg Tablet] Atorvastatin [Lipitor] 80 mg PO DAILY 12/22/19 11/19/24 History Spironolactone [Aldactone] 25 mg PO DAILY 12/22/19 11/19/24 History Apixaban [Eliquis] 5 mg PO BID 05/19/20 11/19/24 History Cholecalciferol [Vitamin D3 (25 25 mcg PO BID 09/04/22 11/19/24 History Mcg = 1000 Iu)] Amiodarone [Cordarone] 200 mg PO DAILY 08/20/24 11/19/24 History Fluticasone Propion/Salmeterol 1 puff INHALATION RT-BID 08/20/24 11/19/24 History [Wixela 250-50 Inhub] Levothyroxine Sodium [Synthroid] 75 mcg PO DAILY 08/20/24 11/19/24 History Metoprolol Succinate (ER) [Toprol 75 mg PO BID 11/19/24 11/19/24 History Xl] Nitroglycerin Sl Tabs [Nitrostat] 0.4 mg SL Q5M PRN 11/19/24 11/19/24 History Allergies Allergy/AdvReac Type Severity Reaction Status Date / Time amoxicillin Allergy Rash/Hives Verified 11/19/24 12:23 Penicillins Allergy Rash/Hives Verified 11/19/24 12:23 Physical Exam Vitals: Vital Signs Temp Pulse Resp BP Pulse Ox 11/19/24 16:14 60 18 102/48 98 11/19/24 13:02 60 18 126/60 98 11/19/24 11:30 60 18 103/48 100 11/19/24 09:06 60 16 98/51 95 11/19/24 08:55 60 18 117/59 97 11/19/24 08:37 60 18 114/56 99 11/19/24 08:13 60 18 151/74 100 11/19/24 07:54 97.6 F 59 L 20 153/60 97 Intake and Output 11/19/24 11/19/24 11/19/24 06:59 14:59 22:59 Other: Weight 67.585 kg Results CBC & Chem 7: 11/19/24 08:05 11/19/24 08:05 Labs: Abnormal Lab Results - Last 24 Hours (Table) 11/19/24 11/19/24 Range/Units 08:05 08:05 MPV 9.1 L (9.5-12.2) fL Eosinophils # 0.55 H (0.04-0.35) 10*3/uL Chloride 109 H (98-107) mmol/L BUN 28 H (9-20) mg/dL Creatinine 1.94 H (0.66-1.25) mg/dL Glucose 111 H (74-99) mg/dL
[2024-11-19] MEDS: CHOLECALCIFEROL 25 MCG (1000 IU) TABLET PO SCH (20:21)
[2024-11-19] MEDS: ALBUTEROL NEBULIZED 2.5 MG/3 ML INHALATION SCH (20:48)
[2024-11-19] MEDS: SYMBICORT 80-4.5 MCG INHALER INHALATION SCH (20:48)
[2024-11-20 07:44] VITALS: RESP 16
[2024-11-20] MEDS: LEVOTHYROXINE 75 MCG TAB PO SCH (08:27)
[2024-11-20] MEDS: ASPIRIN 81 MG PO SCH (08:27)
[2024-11-20] MEDS: ATORVASTATIN 80 MG TAB PO SCH (08:28)
[2024-11-20] MEDS: FOLIC ACID 1 MG TAB PO SCH (08:28)
[2024-11-20] MEDS: PANTOPRAZOLE 40 MG TABLET PO SCH (08:28)
[2024-11-20] MEDS ORDERED: ASPIRIN 325 MG TAB PO SCH (09:00)
[2024-11-20 09:42] LABS: Cholesterol 113.00 mg/dL (0.00-200.00); HDL Cholesterol 32.10 mg/dL (40.00-60.00); LDL Cholesterol,Calculated 54.5 mg/dL (0.0-131.0); Triglycerides 132.00 mg/dL (0.00-149.00); VLDL Calculation 26.40 mg/dL (5.00-40.00)
--- NOTE | 2024-11-20 14:37 | P.CRDCN ---
History of Present Illness Consult date: 11/20/24 Consult reason: chest pain Chief complaint: Chest pain History of present illness: History of present illness: This is a pleasant 78-year-old male with significant past medical history of CAD status post PCI in 2014 with ischemic cardiomyopathy, status post AICD implantation, he had generator change and upgrade to dual-chamber ICD 11/12/[address] Farmer, paroxysmal atrial fibrillation, hyperlipidemia, COPD, anemia, CVA, Christensen's esophagus who presented with chest heaviness. He does follow with Dr. Farmer in the office. He states he woke up yesterday and felt like "an elephant was sitting on his chest". He got up and this began to feel worse with shortness of breath and some diaphoresis. Denies any nausea. He does feel somewhat better today but the pain has not gone completely. He did miss his device interrogation in the office as he was in the hospital yesterday. He states he has been taking it easy since his new lead implant and denies any falls or injury. Left chest incision with no redness or drainage, mild swelling. Labs reviewed: Hemoglobin 13.3, potassium 4.6, creatinine 1.94, troponin negative x 3, LDL 54. EKG shows paced rhythm. Chest x-ray with no acute findings. REVIEW OF SYSTEMS: No fever or chills. No cough or expectoration. No diaphoresis. Patient denies headache, dizziness, blurred vision, double vision. Patient denies any stomach discomfort. No nausea, vomiting. No hematochezia. No hematemesis. Denies any black stools or blood in his stools. Denies dysuria or hematuria. No muscle weakness or numbness. Reports chest heaviness, shortness of breath. PHYSICAL EXAMINATION: This is a 78-year-old male in no apparent distress at the time of my examination. HEENT: Head is atraumatic, normocephalic. Pupils are equal, round. Sclerae anicteric. Conjunctivae are clear. Mucous membranes of the mouth are moist. Neck is supple. There is no jugular venous distention. No carotid bruit is heard. CHEST EXAMINATION: Lungs are clear to auscultation. No chest wall tenderness is noted on palpation or with deep breathing. Left chest wall with mild swelling, no drainage. HEART EXAMINATION: Heart regular rate and rhythm. S1, S2 heard. No murmurs, gallops or rub. ABDOMEN: Soft, nontender. Bowel sounds are heard. EXTREMITIES: 2+ peripheral pulses with no evidence of peripheral edema and no calf tenderness noted. NEUROLOGIC EXAMINATION: Patient is awake, alert and oriented x3. IMPRESSION AND PLAN: CAD status post PCI 2014 Ischemic cardiomyopathy History of AICD implantation and recent generator change and upgrade to dual chamber ICD 11/12/2024 Paroxysmal atrial fibrillation Hyperlipidemia COPD Chest pain Dyspnea PLAN: We will interrogate device, device is working as expected. ACS ruled out. Likely more musculoskeletal. OK to DC home from a cardiac standpoint. Reviewed pacemaker precautions. Follow up in office in [address] Farmer. I am dictating on behalf of Dr. Kwesi Lobo's history/physical and assessment/plan. Past Medical History Past Medical History: Atrial Fibrillation, Chest Pain / Angina, CVA/TIA, GERD/Reflux, Hyperlipidemia, Hypertension, Pneumonia, Renal Disease Additional Past Medical History / Comment(s): Autoimmune disorder with hx. 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 vision loss, covid pnemonia May 05, 2020, ckd stage3, see dr farmer's h &P Last Myocardial Infarction Date:: 1996 History of Any Multi-Drug Resistant Organisms: None Reported Past Surgical History: AICD, Heart Catheterization, Heart Catheterization With S tent Additional Past Surgical History / Comment(s): PT STATED HE HAS A TOTAL OF 7 STENTS, colonoscopy, sinus sx, bilateral cataract removal with lens implants, R hydrocele surgery Lft hydrocele/cyst, Defib. Past Anesthesia/Blood Transfusion Reactions: No Reported Reaction Date of Last Stent Placement:: 2015 Type of Cardiac Device: Permanent Pacemaker, AICD Device Placement Date:: 11/12/2024 Past Psychological History: No Psychological Hx Reported Additional Psychological History / Comment(s): EXPOSED TO [employer] Smoking Status: Former smoker Past Alcohol Use History: None Reported Additional Past Alcohol Use History / Comment(s): STARTED SMOKING AGE 21 SMOKED 1 PPD QUIT IN 1996 Past Drug Use History: None Reported - Past Family History Sister(s) Family Medical History: Cancer Additional Family Medical History / Comment(s): Colon CA. Father Family Medical History: Myocardial Infarction ([place]) Additional Family Medical History / Comment(s): FATHER HAD MIs. Mother Family Medical History: Cancer Additional Family Medical History / Comment(s): COLON CANCER. Medications and Allergies Home Medications Medication Instructions Recorded Confirmed Type Folic Acid 1 mg PO DAILY 02/22/15 11/19/24 History Omeprazole [PriLOSEC] 20 mg PO AC-BRKFST 02/22/15 11/19/24 History Albuterol Nebulized [Ventolin 2.5 mg INHALATION RT-BID 05/02/17 11/19/24 History Nebulized] Sacubitril/Valsartan [Entresto 24 1 tab PO BID 08/07/18 11/19/24 History mg-26 mg Tablet] Atorvastatin [Lipitor] 80 mg PO DAILY 12/22/19 11/19/24 History Spironolactone [Aldactone] 25 mg PO DAILY 12/22/19 11/19/24 History Apixaban [Eliquis] 5 mg PO BID 05/19/20 11/19/24 History Cholecalciferol [Vitamin D3 (25 25 mcg PO BID 09/04/22 11/19/24 History Mcg = 1000 Iu)] Amiodarone [Cordarone] 200 mg PO DAILY 08/20/24 11/19/24 History Fluticasone Propion/Salmeterol 1 puff INHALATION RT-BID 08/20/24 11/19/24 History [Wixela 250-50 Inhub] Levothyroxine Sodium [Synthroid] 75 mcg PO DAILY 08/20/24 11/19/24 History Metoprolol Succinate (ER) [Toprol 75 mg PO BID 11/19/24 11/19/24 History Xl] Nitroglycerin Sl Tabs [Nitrostat] 0.4 mg SL Q5M PRN 11/19/24 11/19/24 History Allergies Allergy/AdvReac Type Severity Reaction Status Date / Time amoxicillin Allergy Rash/Hives Verified 11/19/24 12:23 Penicillins Allergy Rash/Hives Verified 11/19/24 12:23 Physical Exam Vitals: Vital Signs Temp Pulse Pulse Resp BP BP Pulse Ox 11/20/24 09:12 64 11/20/24 08:55 60 11/20/24 07:24 98.6 F 60 16 113/67 94 L 11/20/24 00:30 97.8 F 60 18 112/60 98 11/20/24 00:20 60 15 98/56 99 11/19/24 22:00 97.7 F 60 101 H 94 L 11/19/24 20:56 64 18 11/19/24 20:49 62 18 11/19/24 20:16 60 20 106/50 97 11/19/24 18:39 97.9 F 60 16 97/47 98 11/19/24 17:17 60 18 96/68 96 11/19/24 16:14 60 18 102/48 98 11/19/24 13:02 60 18 126/60 98 Intake and Output 11/19/24 11/20/24 11/20/24 22:59 06:59 14:59 Other: # Voids 2 Weight 67.585 kg Results 11/19/24 08:05 11/19/24 08:05 Cardiac Enzymes 11/19/24 11/19/24 Range/Units 11:05 14:09 Troponin I <0.012 <0.012 (0.000-0.034) ng/mL Lipids 11/19/24 Range/Units 08:05 Triglycerides 132.00 (0.00-149.00) mg/dL Cholesterol 113.00 (0.00-200.00) mg/dL HDL Cholesterol 32.10 L (40.00-60.00) mg/dL Cholesterol/HDL Ratio 3.52 Ratio Current Medications Generic Name Dose Route Start Last Admin Trade Name Freq PRN Reason Stop Dose Admin Albuterol Sulfate 2.5 mg 11/20/24 13:00 Albuterol Nebulized 2.5 Mg/3 Ml INHALATION RT-TID [facility] Amiodarone HCl 200 mg 11/19/24 13:00 11/20/24 08:28 Amiodarone 200 Mg Tab PO 200 mg DAILY [facility] Administration Apixaban 5 mg 11/19/24 13:00 11/20/24 08:27 Apixaban 5 Mg Tab PO 5 mg BID [facility] Administration Protocol Aspirin 81 mg 11/20/24 09:00 11/20/24 08:27 Aspirin 81 Mg PO 81 mg DAILY [facility] Administration Atorvastatin Calcium 80 mg 11/20/24 09:00 11/20/24 08:28 Atorvastatin 80 Mg Tab PO 80 mg DAILY [facility] Administration Budesonide/Formoterol Fumarate 2 puff 07/03/25 20:00 11/20/24 08:49 Symbicort 80-4.5 Mcg Inhaler INHALATION 2 puff RT-BID [facility] Administration Cholecalciferol 25 mcg 11/19/24 21:00 11/20/24 08:28 Cholecalciferol 25 Mcg (1000 Iu) Tablet PO 25 mcg BID [facility] Administration Folic Acid 1 mg 11/20/24 09:00 11/20/24 08:28 Folic Acid 1 Mg Tab PO 1 mg DAILY [facility] Administration Levothyroxine Sodium 75 mcg 11/20/24 06:30 11/20/24 08:27 Levothyroxine 75 Mcg Tab PO 75 mcg DAILY@0630 [facility] Administration Metoprolol Succinate 75 mg 11/19/24 13:00 11/20/24 08:28 Metoprolol Succinate (Er) 25 Mg Tab.Er.24h PO 75 mg BID [facility] Administration Nitroglycerin 0.4 mg 11/19/24 10:53 Nitroglycerin Sl Tabs 0.4 Mg Tab SUBLINGUAL Q5M PRN Chest Pain Nitroglycerin 1 inch 11/19/24 12:00 11/20/24 06:38 Nitroglycerin Oint 1 Inch/Gm Packet TOPICAL Not Given Q6HR [facility] Pantoprazole Sodium 40 mg 11/20/24 07:30 11/20/24 08:28 Pantoprazole 40 Mg Tablet PO 40 mg AC-BRKFST [facility] Administration Intake and Output 11/19/24 11/20/24 11/20/24 22:59 06:59 14:59 Other: # Voids 2 Weight 67.585 kg 11/19/24 08:05 11/19/24 08:05
[2024-11-20 14:39] VITALS: BP 101/56; TEMP 97.5
[2024-11-20] MEDS: ALBUTEROL NEBULIZED 2.5 MG/3 ML INHALATION SCH (15:18)
[2024-11-20 15:30] VITALS: PULSE 66
--- NOTE | 2024-11-21 12:17 | P.DS ---
Providers Date of admission: 11/19/24 10:53 Expected date of discharge: 11/20/24 Attending physician: Padma Lincoln Consults: 11/19/24 10:53 Consult Physician Urgent Consulting Provider: [facility] Consult Reason/Comments: Chest pain Do you want consulting provider notified?: Yes Primary care physician: Padma Lincoln Hospital Course: HISTORY OF PRESENT ILLNESS: This is a 78-year-old male with a previous medical history significant for coronary artery disease status post PCI and stent placement back in April 25, 2015 with ischemic cardiomyopathy status post AICD implantation with generator exchange that was done about a week ago with Dr. Farmer, paroxysmal atrial fibrillation, mixed hyperlipidemia, COPD, vitamin D deficiency, GERD, autoimmune hemolytic anemia, Christensen's esophagus, CVA, enlarged prostate, patient woke up in the morning with a tight band around his chest all the way to the back associated with minimal shortness of breath, he did not take his nitroglycerin, he ended up coming to the emergency department for evaluation, he had a twelve-lead EKG did not show evidence of acute changes, his cardiac enzymes were negative, but because of the presentation and because of the history of ischemic cardiomyopathy and recent generator change he was admitted to hospital for evaluation by cardiology. 11/20: Patient sitting up in bed in no apparent distress, he has no chest pain at this point in time, he was a bit hypotensive yesterday, he was taken off Entresto as well as spironolactone he was maintained on metoprolol ER 75 mg orally twice every day patient was seen in consultation by cardiology he was cleared to be discharged home, he will follow-up with them as an outpatient next week. Discharge diagnoses: 1. Chest pain likely noncardiac in a patient with a prior history of CAD with ischemic cardiomyopathy with a recent AICD/generator exchange. 2. History of CAD with ischemic cardiomyopathy status post multiple PCI. 3. Mixed hyperlipidemia. 4. Paroxysmal atrial fibrillation. 5. History of COPD. 6. Hypothyroidism. 7. History of Christensen's esophagus. 8. History of CVA. 9. Enlarged prostate. Patient Condition at Discharge: Stable Plan - Discharge Summary New Discharge Prescriptions: No Action Omeprazole [PriLOSEC] 20 mg PO AC-BRKFST Folic Acid 1 mg PO DAILY Albuterol Nebulized [Ventolin Nebulized] 2.5 mg INHALATION RT-BID Sacubitril/Valsartan [Entresto 24 mg-26 mg Tablet] 1 tab PO BID Atorvastatin [Lipitor] 80 mg PO DAILY Spironolactone [Aldactone] 25 mg PO DAILY Apixaban [Eliquis] 5 mg PO BID Cholecalciferol [Vitamin D3 (25 Mcg = 1000 Iu)] 25 mcg PO BID Fluticasone Propion/Salmeterol [Wixela 250-50 Inhub] 1 puff INHALATION RT-BID Levothyroxine Sodium [Synthroid] 75 mcg PO DAILY Amiodarone [Cordarone] 200 mg PO DAILY Metoprolol Succinate (ER) [Toprol Xl] 75 mg PO BID Nitroglycerin Sl Tabs [Nitrostat] 0.4 mg SL Q5M PRN PRN Reason: Chest Pain Discharge Medication List Folic Acid 1 mg PO DAILY 02/22/15 [History] Omeprazole [PriLOSEC] 20 mg PO AC-BRKFST 02/22/15 [History] Albuterol Nebulized [Ventolin Nebulized] 2.5 mg INHALATION RT-BID 05/02/17 [History] Sacubitril/Valsartan [Entresto 24 mg-26 mg Tablet] 1 tab PO BID 08/07/18 [History] Atorvastatin [Lipitor] 80 mg PO DAILY 12/22/19 [History] Spironolactone [Aldactone] 25 mg PO DAILY 12/22/19 [History] Apixaban [Eliquis] 5 mg PO BID 05/19/20 [History] Cholecalciferol [Vitamin D3 (25 Mcg = 1000 Iu)] 25 mcg PO BID 09/04/22 [History] Amiodarone [Cordarone] 200 mg PO DAILY 08/20/24 [History] Fluticasone Propion/Salmeterol [Wixela 250-50 Inhub] 1 puff INHALATION RT-BID 08/20/24 [History] Levothyroxine Sodium [Synthroid] 75 mcg PO DAILY 08/20/24 [History] Metoprolol Succinate (ER) [Toprol Xl] 75 mg PO BID 11/19/24 [History] Nitroglycerin Sl Tabs [Nitrostat] 0.4 mg SL Q5M PRN 11/19/24 [History] Follow up Appointment(s)/Referral(s): Padma Lincoln MD [Primary Care Provider] - 1-2 days
== END 2024-11-20 16:12 | disposition home or self-care (01) ==
LOC: EC 07:53 → 6NMEDSUR 10:53
PROVIDERS: ADMIT Internal Medicine; ATTEND Internal Medicine
DX: R07.89 Other chest pain (principal); I25.10 Atherosclerotic heart disease of native coronary artery without angina pectoris; I25.5 Ischemic cardiomyopathy; I48.0 Paroxysmal atrial fibrillation; J44.9 Chronic obstructive pulmonary disease, unspecified; E78.2 Mixed hyperlipidemia; E55.9 Vitamin D deficiency, unspecified; K21.9 Gastro-esophageal reflux disease without esophagitis; K22.70 Barrett's esophagus without dysplasia; D59.10 Autoimmune hemolytic anemia, unspecified; N40.0 Benign prostatic hyperplasia without lower urinary tract symptoms; I95.9 Hypotension, unspecified; E03.9 Hypothyroidism, unspecified; R61 Generalized hyperhidrosis; Z79.01 Long term (current) use of anticoagulants; Z79.82 Long term (current) use of aspirin; Z79.890 Hormone replacement therapy; Z79.51 Long term (current) use of inhaled steroids; Z79.899 Other long term (current) drug therapy; Z88.0 Allergy status to penicillin; Z87.891 Personal history of nicotine dependence; Z95.5 Presence of coronary angioplasty implant and graft; Z95.810 Presence of automatic (implantable) cardiac defibrillator; Z86.73 Personal history of transient ischemic attack (TIA), and cerebral infarction without residual deficits
CPT/HCPCS: 99285; 36415; 94640 ×3; 93005; 80061; 80053; 83735; 84484; 85025; 85610; 85730; 71046; G0378 ×2